=== PATIENT | male | born 1955 | race Two or more races ===

== ENCOUNTER 2021-04-03 10:19 | Emergency (ER) | payer MEDICARE, SELFPAY ==
--- NOTE | ~2021-04-03 | XR_ITS ---
EXAMINATION: XR CHEST CLINICAL INFORMATION: Covid infection. Cough. COMPARISON: Previous chest ray February 2018 TECHNIQUE: Frontal view of the chest was obtained. FINDINGS: The cardiac and mediastinal contours are normal. There is question of an infiltrate at the left lung base. The lungs are otherwise clear. There is no pleural effusion or pneumothorax. There are degenerative changes of the spine. XR/XR chest 1V IMPRESSION: Question left base infiltrate.
[2021-04-03 10:28] VITALS: BP 101/70; PULSE 104; RESP 16; TEMP 36.9; O2SAT 96; BMI 26.6
[2021-04-03] MEDS: 0.9 % Sodium Chloride 1,000 ML 999 ML IV ×2 (12:48→12:49)
[2021-04-03] MEDS: methylPREDNISolone Sod Succ 125 MG/2 ML VIAL IVPUSH (12:49)
--- NOTE | 2021-04-03 12:49 | ED_ITS ---
HPI - URI/Sore Throat General Chief Complaint: Upper Respiratory Symptoms Stated Complaint: POS COVID MONDAY CHEST PAIN DIFF BREATHING Time Seen by Provider: 04/03/21 11:24 Source: patient and family (daughter) Mode of arrival: ambulatory Limitations: language barrier History of Present Illness HPI Narrative: 65-year-old male with a past history of asthma and alcoholism prevents for worsening cough and headache. Symptoms are much worse at night. diagnosed COVID positive 5 days ago. Patient had 2 doses of Pfizer vaccine, his last dose was in September. Nursing notes as patient had chest pain, patient denies chest pain to me. Denies shortness of breath. States he has had fevers at home. No headache now. States he can eat and drink. Patient states he has been using his albuterol inhaler 10 times a day. His cough is mostly dry. Called daughter at home, daughter is a nurse. Daughter states patient's t emperature has been 104F temporal Patient's systolic blood pressure was less than 100 last night. His doctor prescribed Tessalon Perles but he has not started them. Patient is not drinking very much fluid. Daughter states she made him child Pedialyte to get his systolic blood pressure above 100 last night. Daughter states last night patient's oxygen saturation dropped to 87% for 4 hours. States at home it has only been up to 91%. Daughter states they have 4 people in the house and they all have symptoms, and two have tested positive for COVID. MD elicited complaint: fever and cough (headache) Pertinent past history: asthma Onset (ago): day(s) (5) Consistency: constant Severity: severe Able to tolerate fluids by mouth: Yes Exacerbating factors: other (coughing) Relieving factors: other (albuterol) Context: sick contacts Associated symptoms: fever, headache and cough Treatments prior to arrival: cold medicine Related Data Home Medications Medication Instructions Recorded Confirmed albuterol sulfate 90 mcg/actuation 2 puff INHALATION Q6H PRN 07/07/20 07/07/20 aerosol inhaler Previous Rx's Medication Instructions Recorded fluticasone propionate 44 2 puff INHALATION BID 30 Days 07/07/20 mcg/actuation HFA aerosol inhaler #10.6 g (Flovent HFA) benzonatate 100 mg capsule 100 mg PO TID PRN 7 Days #21 cap 03/31/21 albuterol sulfate 90 mcg/actuation 2 puff INHALATION Q4-6H PRN #6.7 g 04/03/21 aerosol inhaler amoxicillin 875 mg-potassium 1 tab PO BID 10 Days #20 tab 04/03/21 clavulanate 125 mg tablet (Augmentin) azithromycin 250 mg tablet See Rx Instructions .ROUTE 04/03/21 .COMPLEX #6 tab prednisone 20 mg tablet 60 mg PO DAILY 5 Days #15 tab 04/03/21 Allergies Allergy/AdvReac Type Severity Reaction Status Date / Time No Known Allergies Allergy Verified 08/25/20 10:11 Review of Systems Constitutional: Constitutional: Denies chills, Reports fever(s), Reports headache(s), Reports malaise and Denies weakness Eyes: Eyes: Denies blurry vision, Denies change in vision and Denies diplopia ENT: Denies dizziness, Denies otalgia, Reports headache(s), Denies post nasal drip, Denies sinus pain and Denies sore throat Cardiovascular: Cardiovascular: Denies chest pain, Denies chest pain at rest, Denies chest pain with activity, Denies syncope, Denies palpitations and Denies dyspnea Respiratory: Respiratory: Denies chest congestion, Reports cough, Denies pain on inspiration, Denies dyspnea and Reports wheezing Gastrointestinal: Gastrointestinal: Denies abdominal pain, Denies hematochezia, Denies constipation, Denies diarrhea, Denies nausea and Denies vomiting Genitourinary: Genitourinary: Reports no additional male genitourinary complaints Musculoskeletal: Musculoskeletal: Reports no additional musculoskeletal complaints Integumentary/Breasts: Skin/Breast: Denies erythema and Denies rash Neurologic: Denies Abnormal speech present, Denies confusion, Denies dizziness, Denies syncope, Reports headache(s), Denies Sensory deficit (Neuro) and Denies weakness Psychiatric: Psychiatric: Denies anxiety, Denies confusion and Denies depression Endocrine: Endocrine: Denies palpitations Allergic/Immunologic: Allergic/Immunologic: Reports wheezing PMFSH Past Medical History Medical History Asthma History of alcoholism Surgical History History of removal of cyst Family History Family History Father Alcoholism Mother No problems noted. Maternal Uncle Stroke Diabetes Hypertension Sister No problems noted. Brother Liver disease Son Murder Social History Social History Advance Directives: Yes Advance Directives Information Provided: Yes Advance Directives on File: No Physical Exam Vital Signs: Vital Signs: Last Vital Signs Temp 99.9 F 04/03/21 14:40 Pulse 90 04/03/21 14:40 Resp 14 04/03/21 14:40 BP 123/84 04/03/21 14:40 Pulse Ox 95 04/03/21 14:40 Body Mass Index 26.6 Const: General: No confusion Nutritional Appearance: well nourished Orientation/consciousness: patient oriented x3 and No confusion Limitations: language barrier (Armenian speker) HENMT: Head: Yes normal to inspection, Yes normocephalic and Yes atraumatic Ears: hearing grossly normal bilaterally, external ears normal, TM's normal bilaterally and EAC's normal General nose exam: Normal external nose present Face and sinus: Yes normal facial exam and Yes sinuses nontender Mouth: Normal oral and palatal mucosa present Throat: Yes posterior oropharynx normal Eyes: Conjunctivae: conjunctivae normal Pupils: Equal, round and reactive pupils present EOM: EOMs intact bilaterally Neck: Neck: Yes full ROM, Yes no lymphadenopathy, Yes no meningeal signs and Yes supple Resp: Effort & Inspection: normal respiratory effort and able to speak in complete sentences Auscultation: no crackles, no rales, rhonchi right lower and no wheezes Cardio: Rate: regular rate Rhythm: regular rhythm Heart sounds: S1 normal heart sound present and S2 normal heart sound present GI: Inspection: Yes normal to inspection Palpation (GI): Soft to palpation, nontender, no guarding and not rigid Percussion: Yes normal to percussion Auscultation: normal bowel sounds Skin: General skin exam: no rashes or lesions noted Neuro: General: patient oriented x3, gait normal, tone normal, no meningeal signs, no focal motor deficits, CN's II-XI intact bilaterally and No confusion Cranial nerves: Yes CN's II-XII intact bilaterally, Yes Facial sensation intact/muscles of mastication intact, Yes Equal, round and reactive pupils present, Yes Normal accommodation reflex present, Yes Bilaterally intact EOM present, Yes Nystagmus not present, Yes Normal facial strength present, Yes Ability to bilaterally rotate head present and Yes Ability to bilaterally elevate shoulders present Cognition (Neuro): normal cognition Speech: No Abnormal speech present Gait exam (Neuro): Normal gait present Motor exam (neuro): 5/5 motor strength present throughout Sensory Exam: No Sensory deficit (Neuro) Deep tendon reflexes (DTR's): Right brachioradialis reflex intensity grade: 1+, Left brachioradialis reflex intensity grade: 1+, Right patellar reflex intensity grade: 1+ and Left patellar reflex intensity grade: 1+ Coordination: [id number] test normal Pupils: Normal pupillary reactivity/response: bilateral Extrem: General: Yes normal to inspection and Yes full ROM Psych: Appearance: grossly normal Affect: normal affect Attitude: cooperative Thought process: Normal thought process present Course Course Course Narrative: 65-year-old male with a history of asthma presents for worsening cough, fever, and headaches at night. Patient is COVID positive despite being vaccinated. Spoke with daughter who is a nurse, who states patient has had temperatures up to 104, and a low blood pressure at home. States patient was only having an oxygen saturation of 87% last night for number of hours. She is concerned he is getting worse, and states he is afraid of hospitals and did not want to come in. On exam, patient is afebrile, mildly tachycardic with a heart rate of 104, blood pressure 101/70. Satting 96% on room air. Lung exam reveals mild rhonchi in the lower lobes. Getting chest x-ray, giving DuoNeb, giving Solu-Medrol, giving normal saline, getting labs, lactate, blood culture due to daughter's report. CBC and CMP are within normal limits, lactate 1.1. Will re-evaluate after nebulizer and Solu-Medrol Reevaluation(s) Reevaluation #1: Chest x-ray shows possible left base infiltrate. Will ambulate with pulse ox. Patient's oxygen saturation dropped to 94% while ambulating, he did not become tachypneic nor tachycardic. He is feeling better after his breathing treatment. Will send home on Augmentin and azithromycin, prednisone, albuterol inhaler. Called patient's daughter to update her. MDM - URI/Sore Throat Lab Data Result diagrams: 04/03/21 12:43 09/04/21 12:43 Labs: Lab Results 04/03/21 04/03/21 04/03/21 Range/Units 12:43 12:43 12:43 WBC 6.6 (4.8-10.8) X10*3/uL RBC 4.38 L (4.60-5.80) X10*6/uL Hgb 13.9 L (14.0-18.0) g/dl Hct 40.9 L (42-52) % MCV 93.4 (80-98) fL MCH 31.7 (27.0-33.0) pg MCHC 34.0 (31.0-36.0) g/dl RDW 13.2 (11.0-16.0) % Plt Count 192 (160-400) X10*3/uL MPV 9.2 L (9.4-12.4) fL Immature Gran % (Auto) 0.2 (0.0-0.4) % Neut % (Auto) 71.0 (45-73) % Lymph % (Auto) 23.8 (20-40) % [place] % (Auto) 4.8 (2-11) % Eos % (Auto) 0.2 (0-4) % Baso % (Auto) 0.0 (0-2) % Lymph # (Auto) 1.6 (1.2-4.9) X10*3/uL [place] # (Auto) 0.3 (0.1-1.2) X10*3/uL Eos # (Auto) 0.0 (0.0-0.4) X10*3/uL Baso # (Auto) 0.0 (0.0-0.2) X10*3/uL Abs Immat Gran (auto) 0.01 (0.00-0.03) X10*3/uL Absolute Neuts (auto) 4.7 (2.0-8.3) X10*3/uL Absolute Nucleated RBC 0.000 (0.0-0.012) X10*3/uL Nucleated RBC % (auto) 0.0 (0.0-0.2) /100WBC Sodium 139 (135-145) mmol/L Potassium 4.2 (3.3-5.1) mmol/L Chloride 101 (96-108) mmol/L Carbon Dioxide 29 (22-29) mmol/L Anion Gap 13 (12-20) BUN 7 L (9-16) mg/dL Creatinine 0.75 (0.5-1.4) mg/dL Estim Creat Clear Calc 83.1 Estimated GFR > 60 Random Glucose 95 (60-115) mg/dL Lactic Acid 1.1 (0.5-2.0) mmol/L Calcium 8.5 (8.4-10.2) mg/dL Total Bilirubin 0.4 (0.0-1.0) mg/dL AST 37 (5-37) U/L ALT 29 (0-40) U/L Alkaline Phosphatase 97 (39-117) U/L Total Protein 6.3 L (6.5-8.0) g/dL Albumin 3.8 (3.5-5.0) g/dL Discharge Plan Discharge Clinical Impression: Pneumonia Qualifiers: Pneumonia type: due to unspecified organism Laterality: left Lung location: lower lobe of lung Qualified Code(s): J18.9 - Pneumonia, unspecified organism Patient Disposition: Home, Self-Care Instructions: Bacterial Pneumonia (ED) Additional Instructions: Please start your antibiotics today. Please start your prednisone tomorrow. Please use your albuterol inhaler, 2 puffs every 4 hours while you are awake. Please have your daughter monitor your oxygen saturation, and if it gets low again or you have worsening shortness of breath, please return to the emergency room. Empiece a tomas antibi?ticos hoy. Empiece a tomas prednisona ma?stephania. Utilice lambert inhalador de albuterol, 2 inhalaciones cada 4 horas mientras est? despierto. P?dinora a lambert hija que controle lambert saturaci?n de ox?timothy y, si vuelve a bajar o si la falta de aire empeora, regrese a la gloria de emergencias. Prescriptions: New prednisone 20 mg tablet 60 mg PO DAILY 5 Days Qty: 15 RF: 0 amoxicillin-pot clavulanate [Augmentin] 875-125 mg tablet 1 tab PO BID 10 Days Qty: 20 RF: 0 azithromycin 250 mg tablet See Rx Instructions .ROUTE .COMPLEX Qty: 6 RF: 0 albuterol sulfate 90 mcg/actuation HFA aerosol inhaler 2 puff inhalation Q4-6H PRN (Reason: shortness of breath or wheezing) Qty: 6.7 RF: 1 No Action benzonatate 100 mg capsule 100 mg PO TID PRN (Reason: cough) 7 Days Qty: 21 RF: 0 albuterol sulfate 90 mcg/actuation HFA aerosol inhaler 2 puff inhalation Q6H PRNRF: 0 Flovent HFA 44 mcg/actuation HFA aerosol inhaler 2 puff inhalation BID 30 Days Qty: 10.6 RF: 11 Print Language: Armenian
[2021-04-03 12:50] LABS: Eosinophils Percent Auto 0.2 % (0-4); Hematocrit 40.9 % (42-52); Hemoglobin 13.9 g/dl (14.0-18.0); Imm Gran Abs Auto 0.01 X10*3/uL (0.00-0.03); Imm Gran Pct Auto 0.2 % (0.0-0.4); Lymphocytes Absolute Auto 1.6 X10*3/uL (1.2-4.9); Lymphocytes Percent Auto 23.8 % (20-40); MANUAL DIFF FLAG NO; Mean Corpuscular Hemoglobin 31.7 pg (27.0-33.0); Mean Corpuscular Volume 93.4 fL (80-98); Mean Platelet Volume 9.2 fL (9.4-12.4); Monocytes Absolute Auto 0.3 X10*3/uL (0.1-1.2); Monocytes Percent Auto 4.8 % (2-11); Neutrophils Absolute Auto 4.7 X10*3/uL (2.0-8.3); Platelet Count 192 X10*3/uL (160-400); Red Blood Count 4.38 X10*6/uL (4.60-5.80); Red Cell Distribution Width 13.2 % (11.0-16.0); White Blood Count 6.6 X10*3/uL (4.8-10.8)
[2021-04-03 13:00] LABS: Lactic Acid 1.1 mmol/L (0.5-2.0)
[2021-04-03 13:06] LABS: Alanine Aminotransferase 29 U/L (0-40); Albumin Level 3.8 g/dL (3.5-5.0); Alkaline Phosphatase 97 U/L (39-117); Anion Gap 13 (12-20); Aspartate Amino Transferase 37 U/L (5-37); Bilirubin Total 0.4 mg/dL (0.0-1.0); Blood Urea Nitrogen 7 mg/dL (9-16); Calcium 8.5 mg/dL (8.4-10.2); Carbon Dioxide 29 mmol/L (22-29); Chloride 101 mmol/L (96-108); Creatinine Clr Calc Pharmacy 83.1; Estimated Glomerular Filt Rate > 60; Glucose Random 95 mg/dL (60-115); Potassium 4.2 mmol/L (3.3-5.1); Sodium 139 mmol/L (135-145); Total Protein 6.3 g/dL (6.5-8.0)
[2021-04-03] MEDS: Albuterol/Iprat 2.5/0.5MG 3 ML AMPUL.NEB INHALE (13:08)
[2021-04-03 13:09] VITALS: PULSE 83; O2SAT 99
[2021-04-03 14:40] VITALS: BP 123/84; PULSE 90; RESP 14; TEMP 37.7; O2SAT 95
== END 2021-04-03 16:55 | disposition home or self-care (01) ==
PROVIDERS: Physician Assistant; Emergency Provider Student in an Organized Health Care Education/Training Program; PCP Internal Medicine
DX: J18.9 Pneumonia, unspecified organism (principal); R50.9 Fever, unspecified; Z86.16 Personal history of COVID-19
CPT/HCPCS: 36415; 71045; 80053; 83605; 85025; 87040; 94640; 96361; 96374; 99283; 99284; J2930

== ENCOUNTER 2021-06-29 16:44 | Emergency (ER) | payer MEDICARE, SELFPAY ==
--- NOTE | ~2021-06-29 | XR_ITS ---
EXAMINATION: XR KNEE, RIGHT CLINICAL INFORMATION: Knee pain and swelling COMPARISON: 05/10/2013 TECHNIQUE: Two views of the right knee. FINDINGS: Bones and soft tissues are normal aside from some mild narrowing of the medial compartment unchanged from 2013.. No fracture or joint effusion. Alignment is anatomic. No abnormal soft tissue calcification. XR/XR knee RT 2V IMPRESSION: Mild narrowing of the medial compartment.
[2021-06-29 19:36] VITALS: BP 159/86; PULSE 70; RESP 18; TEMP 36.2; O2SAT 98; BMI 22.9
[2021-06-29 20:59] VITALS: BP 139/91; PULSE 72; RESP 16; TEMP 36.8; O2SAT 99
--- NOTE | 2021-06-29 21:24 | ED.LOWEXIN ---
HPI - Extremity Injury (Lower) General Chief Complaint: Extremity Injury, Lower Stated Complaint: leg pain Time Seen by Provider: 06/29/21 21:23 Source: patient, family (Daughter) and margarine maker Mode of arrival: ambulatory History of Present Illness HPI Narrative: 66-year-old male who presents with complaints of posterior right knee pain not associated with swelling or redness and denies any associated fevers with chills or traumatic event. Patient states that he does perform his work on his knee frequently and denies any recent travel, use of blood thinners, shortness of breath. In addition, patient denies any swelling distal the site of pain as well as denying any numbness/tingling/weakness. The pain is most prominent when he stands and does not radiate. Related Data Home Medications Medication Instructions Recorded Confirmed albuterol sulfate 90 mcg/actuation 2 puff INHALATION Q6H PRN 07/07/20 07/07/20 aerosol inhaler Previous Rx's Medication Instructions Recorded fluticasone propionate 44 2 puff INHALATION BID 30 Days 07/07/20 mcg/actuation HFA aerosol inhaler #10.6 g (Flovent HFA) albuterol sulfate 90 mcg/actuation 2 puff INHALATION Q4-6H PRN #6.7 g 04/03/21 aerosol inhaler amoxicillin 875 mg-potassium 1 tab PO BID 10 Days #20 tab 04/03/21 clavulanate 125 mg tablet (Augmentin) azithromycin 250 mg tablet See Rx Instructions .ROUTE 04/03/21 .COMPLEX #6 tab prednisone 20 mg tablet 60 mg PO DAILY 5 Days #15 tab 04/03/21 benzonatate 100 mg capsule 100 mg PO TID PRN 7 Days #21 cap 05/04/21 Allergies Allergy/AdvReac Type Severity Reaction Status Date / Time No Known Allergies Allergy Verified 08/25/20 10:11 Review of Systems Review of Systems: Pertinent positives and negatives as stated in the HPI and 10 point review of systems is otherwise negative. [facility] Past Medical History Source: nursing notes reviewed Medical History Asthma History of alcoholism Surgical History History of removal of cyst Family History Family History Father Alcoholism Mother No problems noted. Maternal Uncle Stroke Diabetes Hypertension Sister No problems noted. Brother Liver disease Son Murder Social History Social History Advance Directives: No Advance Directives Information Provided: Yes Physical Exam Vital Signs: Vital Signs: Last Vital Signs Temp 98.2 F 06/29/21 20:59 Pulse 72 06/29/21 20:59 Resp 16 06/29/21 20:59 BP 139/91 H 06/29/21 20:59 Pulse Ox 99 06/29/21 20:59 Body Mass Index 22.9 VITAL SIGNS: Reviewed. GENERAL: Well developed, well nourished, in no acute distress. HEAD: Normocephalic/atraumatic EYES: PERRLA, EOMI OROPHARYNX: no oral lesions noted, posterior pharynx clear NECK: Supple, no adenopathy LUNGS: Normal breath sounds. No adventitious sounds or accessory muscle use. SpO2<99> CARDIOVASCULAR: Regular rate and rhythm without noted murmurs ABDOMEN: Soft, non-tender, non-distended with bowel sounds. RLE: No palpable masses that posterior knee, good lower extremity erythema/induration/edema, skin is pink and dry and no noted that in at the knee erythema. SKIN: Inspection of the skin reveals no rashes NEUROLOGIC: Alert and oriented x 4. Strength and sensation to light touch were grossly intact x 4. Course Course Course Narrative: 66-year-old male with history and clinical presentation most consistent with Sánchez cyst and will be provided with combination analgesics but will follow up knee x-ray as well as D-dimer. 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 On re-evaluation after patient provided with patient analgesics he reports there is some improvement is pain profile and he will be discharged with recommendations for similar regimen and instructed to follow-up with his primary care provider. MDM - Extremity Injury (Lower) Lab Data Labs: Lab Results 06/29/21 Range/Units 21:54 D-Dimer High Sensitivty 173 NG/ML Discharge Plan Discharge Clinical Impression: Posterior right knee pain Patient Disposition: Home, Self-Care Instructions: Knee Pain (ED), Arthralgia (ED) Prescriptions: No Action benzonatate 100 mg capsule 100 mg PO TID PRN (Reason: cough) 7 Days Qty: 21 RF: 0 prednisone 20 mg tablet 60 mg PO DAILY 5 Days Qty: 15 RF: 0 amoxicillin-pot clavulanate [Augmentin] 875-125 mg tablet 1 tab PO BID 10 Days Qty: 20 RF: 0 azithromycin 250 mg tablet See Rx Instructions .ROUTE .COMPLEX Qty: 6 RF: 0 albuterol sulfate 90 mcg/actuation HFA aerosol inhaler 2 puff inhalation Q4-6H PRN (Reason: shortness of breath or wheezing) Qty: 6.7 RF: 1 albuterol sulfate 90 mcg/actuation HFA aerosol inhaler 2 puff inhalation Q6H PRNRF: 0 Flovent HFA 44 mcg/actuation HFA aerosol inhaler 2 puff inhalation BID 30 Days Qty: 10.6 RF: 11 Referrals: Shirlene Baeur MD [Primary Care Provider] - 2 days (Suspect right Sánchez cyst, workup here negative for acute joint issues no evidence of infection and D-dimer negative.) Print Language: Cambodian
[2021-06-29 22:00] VITALS: BP 120/68; PULSE 74; RESP 16; TEMP 37.5; O2SAT 99
[2021-06-29 22:05] LABS: D Dimer High Sensitivity 173 NG/ML
[2021-06-29] MEDS: Ketorolac Tromethamine 15 MG/ML VIAL IM (23:10)
[2021-06-29] MEDS: Acetaminophen 325 MG TABLET 975 MG PO (23:11)
== END 2021-06-29 23:27 | disposition home or self-care (01) ==
PROVIDERS: Emergency Provider Student in an Organized Health Care Education/Training Program; PCP Internal Medicine
DX: M25.561 Pain in right knee (principal)
CPT/HCPCS: 36415; 73560; 85379; 96372; 99284; J1885

== ENCOUNTER 2021-08-26 09:23 | Outpatient (REF) | payer MEDICARE, MEDICAID, SELFPAY ==
[2021-08-26 09:59] LABS: MANUAL DIFF FLAG NO
[2021-08-26 10:25] LABS: Basophils Percent Auto 0.5 % (0-2); Eosinophils Absolute Auto 0.1 X10*3/uL (0.0-0.4); Eosinophils Percent Auto 2.2 % (0-4); Hemoglobin 14.9 g/dl (14.0-18.0); Imm Gran Abs Auto 0.01 X10*3/uL (0.00-0.03); Imm Gran Pct Auto 0.2 % (0.0-0.4); Lymphocytes Absolute Auto 2.3 X10*3/uL (1.2-4.9); Lymphocytes Percent Auto 35.7 % (20-40); Mean Corpuscular HGB Conc 33.9 g/dl (31.0-36.0); Mean Corpuscular Hemoglobin 32.1 pg (27.0-33.0); Mean Corpuscular Volume 94.8 fL (80.0-98.0); Mean Platelet Volume 9.8 fL (9.4-12.4); Monocytes Absolute Auto 0.5 X10*3/uL (0.1-1.2); Neutrophils Absolute Auto 3.5 x10*3/uL (2.0-8.3); Neutrophils Percent Auto 53.4 % (45-73); Platelet Count 203 X10*3/uL (160-400); Red Blood Count 4.64 X10*6/uL (4.60-5.80); Red Cell Distribution Width 12.9 % (11.0-16.0); White Blood Count 6.5 X10*3/uL (4.8-10.8)
[2021-08-26 10:32] LABS: Estimated Average Glucose 111 mg/dL; Hemoglobin A1c % 5.5 %
[2021-08-26 10:57] LABS: Alanine Aminotransferase 19 U/L (0-40); Albumin Level 4.2 g/dL (3.5-5.0); Alkaline Phosphatase 112 U/L (39-117); Anion Gap 10 (12-20); Aspartate Amino Transferase 23 U/L (5-37); Bilirubin Total 0.4 mg/dL (0.0-1.0); Blood Urea Nitrogen 15 mg/dL (9-16); Calcium 9.4 mg/dL (8.4-10.2); Carbon Dioxide 28 mmol/L (22-29); Chloride 104 mmol/L (96-108); Cholesterol 156 mg/dL; Estimated Glomerular Filt Rate > 60; Glucose Fasting 96 mg/dL (60-99); HDL Cholesterol 30 mg/dL; LDL Cholesterol Calculated 111 mg/dl; Potassium 4.5 mmol/L (3.3-5.1); Sodium 137 mmol/L (135-145); Total Protein 6.9 g/dL (6.5-8.0); Triglycerides 76 mg/dL
[2021-08-26 11:17] LABS: Prostate Specific Antigen Scr 0.18 ng/mL (<0.05-4.0); TSH reflex Free T4 1.31 uIU/mL (0.32-4.0)
[2021-08-26 11:38] LABS: Vitamin B12 < 146 pg/mL (200-900)
[2021-08-31 14:12] LABS: Vitamin D 25-OH, D2 <4 ng/mL; Vitamin D 25-OH, D3 13 ng/mL; Vitamin D 25-OH, Total 13 ng/mL (30-100)
== END 2021-08-26 09:24 | disposition home or self-care (01) ==
LOC: HO.LAB 09:23
PROVIDERS: Absent Provider Internal Medicine; PCP Internal Medicine; Visit Provider Nurse Practitioner Acute Care
DX: Z12.5 Encounter for screening for malignant neoplasm of prostate (principal); F10.21 Alcohol dependence, in remission
CPT/HCPCS: 36415; 80053; 80061; 82306; 82607; 82746; 83036; 84153; 84443; 85025

== ENCOUNTER 2021-09-01 14:44 | Outpatient (REF) | payer MEDICARE, MEDICAID, SELFPAY ==
--- NOTE | ~2021-09-01 | XR_ITS ---
EXAMINATION: XR CHEST CLINICAL INFORMATION: Shortness of breath COMPARISON: None TECHNIQUE: 2 views of the chest were obtained. FINDINGS: No significant abnormality is noted involving the heart, lungs, mediastinum, bony thorax or soft tissues. XR/XR chest 2V IMPRESSION: Unremarkable chest examination.
[2021-09-07 12:22] LABS: Parietal Cell Antibody <=20.0 Unit (<=20.0)
[2021-09-07 22:57] LABS: Intrinsic Factor Antibodies Negative (Negative)
== END 2021-09-01 14:45 | disposition home or self-care (01) ==
LOC: HO.LAB 14:44
PROVIDERS: PCP Internal Medicine; Visit Provider Internal Medicine
DX: R06.02 Shortness of breath (principal); E53.8 Deficiency of other specified B group vitamins
CPT/HCPCS: 36415; 71046; 83516; 86340

== ENCOUNTER → 2021-10-15 13:31 | Outpatient (BNVA) | payer MEDICARE, MEDICAID, SELFPAY | PROVIDERS: PCP Internal Medicine; Visit Provider Nurse Practitioner Family | DX: M17.11 Unilateral primary osteoarthritis, right knee (principal); L25.9 Unspecified contact dermatitis, unspecified cause | CPT/HCPCS: 99202 ==

== ENCOUNTER 2021-10-25 12:11 | Outpatient (REF) | payer MEDICARE, MEDICAID, SELFPAY ==
--- NOTE | ~2021-10-25 | XR_ITS ---
EXAMINATION: XR KNEE AP STANDING CLINICAL INFORMATION: Pain COMPARISON: X-ray 06/29/2021 TECHNIQUE: AP bilateral standing view of the knees was obtained. Right knee sunrise view FINDINGS: Right knee: Mild medial compartment arthritis. No fracture or dislocation on the provided views. Left knee: Mild medial compartment arthritis. XR/XR knee standing BI IMPRESSION: Mild medial compartment arthritis bilaterally.
--- NOTE | ~2021-10-25 | XR_ITS ---
EXAMINATION: XR KNEE AP STANDING CLINICAL INFORMATION: Pain COMPARISON: X-ray 06/29/2021 TECHNIQUE: AP bilateral standing view of the knees was obtained. Right knee sunrise view FINDINGS: Right knee: Mild medial compartment arthritis. No fracture or dislocation on the provided views. Left knee: Mild medial compartment arthritis. XR/XR knee RT 1V IMPRESSION: Mild medial compartment arthritis bilaterally.
== END 2021-10-25 12:12 | disposition home or self-care (01) ==
LOC: HO.HOSX 12:11
PROVIDERS: PCP Internal Medicine; Visit Provider Physician Assistant
DX: M17.11 Unilateral primary osteoarthritis, right knee (principal); Z86.16 Personal history of COVID-19
CPT/HCPCS: 73560; 73565; 99212

== ENCOUNTER 2022-01-04 09:35 | Outpatient (REF) | payer MEDICARE, MEDICAID, SELFPAY ==
[2022-01-04 09:50] LABS: MANUAL DIFF FLAG NO
[2022-01-04 10:15] LABS: Basophils Percent Auto 0.4 % (0-2); Eosinophils Absolute Auto 0.1 X10*3/uL (0.0-0.4); Eosinophils Percent Auto 1.6 % (0-4); Hematocrit 43.3 % (42.0-52.0); Hemoglobin 14.8 g/dl (14.0-18.0); Imm Gran Abs Auto 0.02 X10*3/uL (0.00-0.03); Imm Gran Pct Auto 0.3 % (0.0-0.4); Lymphocytes Absolute Auto 2.6 X10*3/uL (1.2-4.9); Mean Corpuscular HGB Conc 34.2 g/dl (31.0-36.0); Mean Corpuscular Hemoglobin 31.2 pg (27.0-33.0); Mean Corpuscular Volume 91.2 fL (80.0-98.0); Mean Platelet Volume 9.5 fL (9.4-12.4); Monocytes Absolute Auto 0.6 X10*3/uL (0.1-1.2); Monocytes Percent Auto 8.1 % (2-11); Neutrophils Absolute Auto 3.5 x10*3/uL (2.0-8.3); Neutrophils Percent Auto 51.6 % (45-73); Platelet Count 223 X10*3/uL (160-400); Red Blood Count 4.75 X10*6/uL (4.60-5.80); Red Cell Distribution Width 12.7 % (11.0-16.0); White Blood Count 6.8 X10*3/uL (4.8-10.8)
[2022-01-04 11:21] LABS: Folate 10.6 ng/mL (> or = 4.0); Vitamin B12 < 146 pg/mL (200-900)
[2022-01-09 13:36] LABS: Vitamin D 25-OH, D2 <4 ng/mL; Vitamin D 25-OH, D3 21 ng/mL; Vitamin D 25-OH, Total 21 ng/mL (30-100)
== END 2022-01-04 09:36 | disposition home or self-care (01) ==
LOC: HO.LAB 09:35
PROVIDERS: PCP Internal Medicine; Visit Provider Internal Medicine
DX: E53.8 Deficiency of other specified B group vitamins (principal); E55.9 Vitamin D deficiency, unspecified; D64.9 Anemia, unspecified
CPT/HCPCS: 36415; 82306; 82607; 82746; 85025

== ENCOUNTER 2022-07-05 11:21 | Outpatient (REF) | payer MEDICARE, MEDICAID, SELFPAY ==
--- NOTE | 2022-07-05 11:31 | ECG_ITS ---
Test Reason : R07.9 Chest pain Blood Pressure : / mmHG Vent. Rate : 059 BPM Atrial Rate : 059 BPM P-R Int : 192 ms QRS Dur : 076 ms QT Int : 396 ms P-R-T Axes : 011 071 048 degrees QTc Int : 392 ms Sinus bradycardia Nonspecific T wave abnormality Abnormal ECG When compared with ECG of 17-JAN-2018 16:22, No significant change was found Referred By: Shirlene Gonzales Electronically Signed By:PEG SILVA MD
[2022-07-05 11:37] LABS: MANUAL DIFF FLAG NO
[2022-07-05 11:56] LABS: Basophils Percent Auto 0.3 % (0-2); Eosinophils Absolute Auto 0.1 X10*3/uL (0.0-0.4); Eosinophils Percent Auto 2.2 % (0-4); Hematocrit 43.7 % (42.0-52.0); Hemoglobin 14.8 g/dl (14.0-18.0); Imm Gran Abs Auto 0.02 X10*3/uL (0.00-0.03); Imm Gran Pct Auto 0.3 % (0.0-0.4); Lymphocytes Absolute Auto 2.4 X10*3/uL (1.2-4.9); Lymphocytes Percent Auto 38.1 % (20-40); Mean Corpuscular HGB Conc 33.9 g/dl (31.0-36.0); Mean Corpuscular Volume 91.4 fL (80.0-98.0); Mean Platelet Volume 9.8 fL (9.4-12.4); Monocytes Absolute Auto 0.5 X10*3/uL (0.1-1.2); Monocytes Percent Auto 8.1 % (2-11); Neutrophils Absolute Auto 3.2 x10*3/uL (2.0-8.3); Platelet Count 226 X10*3/uL (160-400); Red Blood Count 4.78 X10*6/uL (4.60-5.80); Red Cell Distribution Width 12.9 % (11.0-16.0); White Blood Count 6.3 X10*3/uL (4.8-10.8)
[2022-07-05 13:54] LABS: Alanine Aminotransferase 33 U/L (0-40); Albumin Level 4.3 g/dL (3.5-5.0); Alkaline Phosphatase 116 U/L (39-117); Anion Gap 11 (12-20); Aspartate Amino Transferase 30 U/L (5-37); Bilirubin Total 0.4 mg/dL (0.0-1.0); Blood Urea Nitrogen 14 mg/dL (9-16); Calcium 9.2 mg/dL (8.4-10.2); Carbon Dioxide 29 mmol/L (22-29); Chloride 104 mmol/L (96-108); Estimated Glomerular Filt Rate > 60; Glucose Random 84 mg/dL (60-115); Potassium 4.8 mmol/L (3.3-5.1); Sodium 139 mmol/L (135-145); Total Protein 6.9 g/dL (6.5-8.0)
[2022-07-05 14:25] LABS: Folate 6.7 ng/mL (> or = 4.0); Vitamin B12 317 pg/mL (200-900)
== END 2022-07-05 11:22 | disposition home or self-care (01) ==
LOC: HO.LAB 11:21
PROVIDERS: PCP Internal Medicine; Visit Provider Internal Medicine
DX: R07.9 Chest pain, unspecified (principal); D64.9 Anemia, unspecified; E53.8 Deficiency of other specified B group vitamins; J45.909 Unspecified asthma, uncomplicated; E55.9 Vitamin D deficiency, unspecified
CPT/HCPCS: 36415; 80053; 82306; 82607; 82746; 85025; 93005

== ENCOUNTER 2022-11-12 10:39 | Emergency (ER) | payer MEDICARE, MEDICAID, SELFPAY ==
[2022-11-12 10:46] VITALS: BP 143/86; PULSE 71; RESP 18; TEMP 36.7; O2SAT 98; BMI 28.3
--- NOTE | 2022-11-12 11:31 | ED_ITS ---
HPI - General Adult General Chief complaint: General Medical Stated complaint: pain in neck and L shoulder Time Seen by Provider: 11/12/22 11:30 Source: patient Mode of arrival: ambulatory History of Present Illness HPI narrative: 67-year-old male with past medical history of asthma, insomnia, ETOH abuse, presenting to the ED complaining of acute on chronic left neck pain radiating to left shoulder x months. Denies known injury/trauma or fall. Reports pain worse with palpation and movement. Denies headache at present, lightheadedness/dizziness, CP/SOB, numbness/tingling. Takes Motrin without relief Onset (ago): month(s) Related Data Previous Rx's Medication Instructions Recorded acetaminophen 500 mg tablet 1,000 mg PO Q6H PRN fever or pain 08/24/21 #30 tabs albuterol sulfate 90 mcg/actuation 2 puff inhalation Q4-6H PRN 08/25/21 aerosol inhaler shortness of breath or wheezing #6.7 grams albuterol sulfate 2.5 mg/3 mL 2.5 mg (3 mL) inhalation QID PRN 09/01/21 (0.083 %) solution for nebulization shortness of breath or wheezing 30 days #75 mL ibuprofen 800 mg tablet 800 mg PO BID PRN pain #21 tabs 10/16/21 cyanocobalamin (vitamin B-12) 1,000 mcg PO DAILY 90 days #90 caps 01/05/22 1,000 mcg capsule trazodone 50 mg tablet 50 mg PO BEDTIME PRN sleep 90 days 01/05/22 #90 tabs pen needle, diabetic 31 gauge x #1 ea 01/08/22/ (1st Tier Unifine Pentips) folic acid 1 mg tablet 1 mg PO DAILY 90 days #90 tabs 07/05/22 nebulizers (AeroEclipse II #1 ea 07/05/22 Nebulizer) cholecalciferol (vitamin D3) 50 50 mcg PO DAILY 90 days #90 caps 09/18/22 mcg (2,000 unit) capsule acetaminophen 500 mg tablet 500 mg PO Q6H PRN fever or pain 11/12/22 (Tylenol Extra Strength) #14 tabs cyclobenzaprine 5 mg tablet 5 mg PO Q8H PRN pain (scale score 11/12/22 7-10) 5 days #14 tabs lidocaine 5 % topical patch 1 patch topical DAILY PRN pain #30 11/12/22 (Lidoderm) ea naproxen 500 mg tablet 500 mg PO BID PRN pain 10 days #20 11/12/22 tabs Allergies Allergy/AdvReac Type Severity Reaction Status Date / Time No Known Allergies Allergy Verified 07/05/22 10:58 Review of Systems Review of Systems: Constitutional: No Fever, No Chills ENT/Mouth: No Ear Pain, No Nasal Congestion, No sore throat, No Rhinorrhea, No Swallowing Difficulty Cardiovascular: No Chest Pain, No SOB Respiratory: No Cough, No Sputum Gastrointestinal: No Nausea, No Vomiting, No Diarrhea, No Constipation, No Abdominal pain Genitourinary: No Dysuria, No Urinary Frequency, No Hematuria, No Urinary Incontinence/retention, No Urgency, No Flank Pain Musculoskeletal: + joint pain, + Myalgias, No Joint Swelling Skin: No Skin Lesions, No rash Neuro: No Weakness, No Numbness, No Paresthesias, No headache Yes all other systems are reviewed and are negative Constitutional: Constitutional: Reports as per [facility] Past Medical History Attestation statement: The following information was validated with the patient. Medical History Asthma History of alcoholism Insomnia Physical exam Surgical History History of removal of cyst Family History Family History Father Alcoholism Substance use disorder Mother Hypertension Maternal Uncle Stroke Diabetes Hypertension Sister No problems noted. 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 Physical Exam ED Vital Signs: Vital Signs - 24 hr 11/12/22 10:46 Temperature 98.0 F Pulse Rate 71 Respiratory Rate 18 Blood Pressure 143/86 H Pulse Oximetry 98 Oxygen Delivery Method Room Air BMI result Body Mass Index 28.3 Const General: cooperative, healthy appearing and no acute distress Orientation/consciousness: patient oriented x3 Limitations: no limitations HENMT Head: Yes normal to inspection and Yes atraumatic Ears: hearing grossly normal bilaterally, TM normal on the left and mastoids normal General nose exam: Normal external nose present Face and sinus: Yes normal facial exam Mouth: Normal oral and palatal mucosa present Throat: Yes posterior oropharynx normal, Yes uvula midline and No peritonsillar mass Eyes General: appearance normal, both eyes and all related structures EOM: EOMs intact bilaterally Neck Other: No midline cervical spinous tenderness. Left-sided paraspinal and trapezius muscle tenderness to palpation Neck: Yes normal visual inspection, Yes no meningeal signs, Yes supple and No anterior neck swelling Resp Effort & Inspection: normal respiratory effort and no respiratory distress Auscultation: clear to auscultation bilaterally Cardio Rate: regular rate Heart sounds: S1 normal heart sound present and S2 normal heart sound present Peripheral pulses: radial pulses present Back/Spine/Pelvis Other: No midline thoracic/lumbar spinous tenderness/step-off or deformity Skin Rashes: no rashes Wounds: no wounds Neuro General: patient oriented x3, gait normal, tone normal, moves all extremities, no meningeal signs, no focal motor deficits and CN's II-XI intact bilaterally Gait exam (Neuro): Normal gait present Motor exam (neuro): 5/5 motor strength present throughout Extrem Other: Left shoulder nontender. Full range of motion intact. NV intact distally General: Yes normal to inspection Medications Administered Discontinued Medications Generic Name Dose Route Start Last Admin Trade Name Freq PRN Reason Stop Dose Admin Ketorolac Tromethamine 30 mg 11/12/22 11:49 11/12/22 11:56 Ketorolac Tromethamine 30 Mg/Ml Vial IM 11/12/22 11:50 30 mg ONCE ONE Administration Lidocaine 1 patch 11/12/22 11:49 11/12/22 11:56 Lidocaine 4 % Patch Adh..Patch TRANSDERMA 11/12/22 11:50 1 patch ONCE ONE Administration Protocol Medical Decision Making Medical Decision Making [facility] Narrative: 67-year-old male with past medical history of asthma, insomnia, ETOH abuse, presenting to the ED complaining of acute on chronic left neck pain radiating to left shoulder x months. On exam vital signs stable, NAD, nontoxic appearing, physical exam as above with reproducible paraspinal/MSK tenderness. No midline spinous tenderness or red flag symptoms. Concern for MSK pain/strain vs radiculopathy vs tendinitis. Low suspicion for fracture, cauda equina, ACS, meningitis/encephalitis, cervical dissection Plan: EKG, IM Toradol Please refer to course for remaining clinical decision making, interpretation of labs/imaging results, and discussions with consultants and/or family members. Differential Diagnosis Differential Diagnoses: The differential diagnosis associated with the presentation includes As above Admission/Observation Consideration of admission/observation: Escalation of care including admission/observation considered Lab Data MDM Lab Attestation statement: I reviewed the patient's lab results. Independent Interpretation I performed an independent interpretation of an: EKG (My interpretation EKG sinus rhythm with first-degree AV block. Rate of 60. QRS 80. QTC 360. No STEMI) Radiology Impression Discussion of test interpretation with radiology: I have reviewed the radiologist's reading. External Record Review External record reviewed: Inpatient record, Office record, Outpatient record, Prior outpatient labs, Prior outpatient radiology, Primary care record and Outside ED record Discharge Plan Discharge Clinical Impression: Neck pain on left side Patient Disposition: Home, Self-Care Instructions: Chronic Neck Pain (DC) Additional Instructions: Your pain is likely musculoskeletal Flexeril is a muscle relaxer, take at night as it makes you drowsy, do not drive, drink alcohol, or operate machinery while taking it Naproxen as an anti-inflammatory / pain medication, take with food Lidoderm patches are numbing patches, apply to painful area In addition take Tylenol at home If symptoms persist or worsen, pain becomes unbearable, you developed urinary retention or incontinence, or weakness return to the ED Es probable que lambert dolor sea musculoesquel?[place] Flexeril es un relajante muscular, t?parveen por la noche ya que te adormece, no conduzcas, bebas alcohol ni operes maquinaria mientras lo franklin. Naproxeno milton medicamento antiinflamatorio/analg?sico, t?chamberlain con alimentos Los parches de Lidoderm son parches anest?sicos, se aplican en el ?lesa dolorida Adem?s yessi Tylenol en casa Si los s?ntomas persisten o empeoran, el dolor se vuelve insoportable, desarroll? retenci?n urinaria o incontinencia, o debilidad, regrese al servicio de urgencias. Prescriptions: New acetaminophen [Tylenol Extra Strength] 500 mg tablet 500 mg PO Q6H PRN (Reason: fever or pain) Qty: 14 0RF lidocaine [Lidoderm] 5 % adhesive patch,medicated 1 patch topical DAILY MDD remove after 12 hours PRN (Reason: pain) Qty: 30 0RF Rx Instructions: leave on most painful area for up to 12 hrs naproxen 500 mg tablet 500 mg PO BID PRN (Reason: pain) 10 Days Qty: 20 0RF cyclobenzaprine 5 mg tablet 5 mg PO Q8H PRN (Reason: pain (scale score 7-10)) 5 Days Qty: 14 0RF No Action albuterol sulfate 90 mcg/actuation HFA aerosol inhaler 2 puff inhalation Q4-6H PRN (Reason: shortness of breath or wheezing) Qty: 6.7 1RF Rx Instructions: Two puffs every 4 hours while your awake for the next 3-4 days (DME) pen needle, diabetic [1st Tier Unifine Pentips] 31 gauge x 5/16 needle See Rx Instructions .Route Qty: 1 6RF Rx Instructions: As directed cholecalciferol (vitamin D3) 50 mcg (2,000 unit) capsule 50 mcg PO DAILY 90 Days Qty: 90 2RF cyanocobalamin (vitamin B-12) 1,000 mcg capsule 1,000 mcg PO DAILY 90 Days Qty: 90 3RF trazodone 50 mg tablet 50 mg PO BEDTIME PRN (Reason: sleep) 90 Days Qty: 90 1RF Hold Instructions: Dose Change albuterol sulfate 2.5 mg /3 mL (0.083 %) solution for nebulization 2.5 mg inhalation QID PRN (Reason: shortness of breath or wheezing) 30 Days Qty: 75 0RF acetaminophen 500 mg tablet 1,000 mg PO Q6H PRN (Reason: fever or pain) Qty: 30 0RF folic acid 1 mg tablet 1 mg PO DAILY 90 Days Qty: 90 1RF (DME) AeroEclipse II Nebulizer Misc See Rx Instructions .Route Qty: 1 0RF Rx Instructions: As directed ibuprofen 800 mg tablet 800 mg PO BID PRN (Reason: pain) Qty: 21 0RF Referrals: Shirlene Bauer MD [Primary Care Provider] - 5 days Print Language: Citizen Of [place]
--- NOTE | 2022-11-12 11:31 | ECG_ITS ---
Test Reason : lest shoulder pain Blood Pressure : / mmHG Vent. Rate : 060 BPM Atrial Rate : 060 BPM P-R Int : 218 ms QRS Dur : 080 ms QT Int : 368 ms P-R-T Axes : 033 059 064 degrees QTc Int : 368 ms Sinus rhythm with 1st degree A-V block Nonspecific T wave abnormality Abnormal ECG When compared with ECG of 05-JUL-2022 11:38, No significant change was found Referred By: Mi Maldonado Electronically Signed By:PEG SILVA MD
[2022-11-12] MEDS: Ketorolac Tromethamine 30 MG/ML VIAL IM (11:56)
[2022-11-12] MEDS: Lidocaine 4 % Patch ADH..PATCH 1 PATCH TRANSDERMA (11:56)
== END 2022-11-12 12:07 | disposition home or self-care (01) ==
PROVIDERS: Emergency Provider Emergency Medicine; PCP Internal Medicine
DX: M54.2 Cervicalgia (principal)
CPT/HCPCS: 93005; 96372; 99284; J1885

== ENCOUNTER 2023-01-14 09:39 | Outpatient (REF) | payer MEDICARE, MEDICAID, SELFPAY ==
[2023-01-14 10:08] LABS: MANUAL DIFF FLAG NO
[2023-01-14 10:51] LABS: Basophils Percent Auto 0.3 % (0-2); Eosinophils Absolute Auto 0.1 X10*3/uL (0.0-0.4); Eosinophils Percent Auto 1.7 % (0-4); Hematocrit 41.8 % (42.0-52.0); Hemoglobin 14.2 g/dl (14.0-18.0); Imm Gran Abs Auto 0.02 X10*3/uL (0.00-0.03); Imm Gran Pct Auto 0.3 % (0.0-0.4); Lymphocytes Absolute Auto 2.4 X10*3/uL (1.2-4.9); Lymphocytes Percent Auto 36.6 % (20-40); Mean Corpuscular Hemoglobin 31.2 pg (27.0-33.0); Mean Corpuscular Volume 91.9 fL (80.0-98.0); Mean Platelet Volume 9.7 fL (9.4-12.4); Monocytes Absolute Auto 0.5 X10*3/uL (0.1-1.2); Monocytes Percent Auto 6.9 % (2-11); Neutrophils Absolute Auto 3.6 x10*3/uL (2.0-8.3); Neutrophils Percent Auto 54.2 % (45-73); Platelet Count 244 X10*3/uL (160-400); Red Blood Count 4.55 X10*6/uL (4.60-5.80); Red Cell Distribution Width 12.9 % (11.0-16.0); White Blood Count 6.6 X10*3/uL (4.8-10.8)
[2023-01-14 12:02] LABS: Folate 15.5 ng/mL (> or = 4.0); Vitamin B12 < 148 pg/mL (200-900)
[2023-01-14 13:01] LABS: Alanine Aminotransferase 31 U/L (0-40); Albumin Level 4.2 g/dL (3.5-5.0); Alkaline Phosphatase 117 U/L (39-117); Anion Gap 12 (12-20); Aspartate Amino Transferase 33 U/L (5-37); Bilirubin Total 0.5 mg/dL (0.0-1.0); Blood Urea Nitrogen 14 mg/dL (9-16); Calcium 9.6 mg/dL (8.4-10.2); Carbon Dioxide 28 mmol/L (22-29); Chloride 105 mmol/L (96-108); Cholesterol 139 mg/dL; Estimated Glomerular Filt Rate > 60; Glucose Fasting 98 mg/dL (60-99); HDL Cholesterol 31 mg/dL; LDL Cholesterol Calculated 96 mg/dl; Potassium 4.2 mmol/L (3.3-5.1); Sodium 141 mmol/L (135-145); Triglycerides 63 mg/dL
[2023-01-20 14:09] LABS: Vitamin B1 8 nmol/L (8-30)
== END 2023-01-14 09:40 | disposition home or self-care (01) ==
LOC: HO.LAB 09:39
PROVIDERS: PCP Internal Medicine; Visit Provider Internal Medicine
DX: Z00.00 Encounter for general adult medical examination without abnormal findings (principal); R07.9 Chest pain, unspecified; F10.11 Alcohol abuse, in remission; E53.8 Deficiency of other specified B group vitamins; E55.9 Vitamin D deficiency, unspecified
CPT/HCPCS: 36415; 80053; 80061; 82306; 82607; 82746; 84425; 85025

== ENCOUNTER 2023-01-20 09:57 | Outpatient (REF) | payer MEDICARE, MEDICAID, SELFPAY ==
--- NOTE | ~2023-01-20 | US_ITS ---
EXAMINATION: US RETROPERITONEAL LIMITED (AORTA) CLINICAL INFORMATION: Personal history of nicotine dependence. COMPARISON: Ultrasound abdominal aorta dated 01/09/2019. TECHNIQUE: Fletcher-scale, color Doppler and spectral Doppler evaluation of the abdominal aorta. FINDINGS: The aorta is normal. The measurements of the aorta in maximum AP and transverse dimensions respectively are as follows: Proximal: 2.6 x 2.8 cm. Mid: 2.2 x 2.8 cm. Distal: 1.7 x 2.0 cm. PSV: 10.2 cm/s. The measurements of the common iliac arteries in maximum AP and TRV dimensions are as follows: Right Common Iliac Artery: 1.4 x 1.4 cm. Left Common Iliac Artery: 1.4 x 1.1 cm. 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
--- NOTE | ~2023-01-20 | XR_ITS ---
EXAMINATION: XR CERVICAL SPINE CLINICAL INFORMATION: Neck pain COMPARISON: 10/23/2014 TECHNIQUE: 4 views of the cervical spine were obtained. FINDINGS: Straightening of the normal cervical lordosis. C7 obscured by overlying soft tissues. Moderate cervical spondylosis with prominent anterior osteophytes at C4-C5 and C5-C6. Mild loss of disc space height at C5-C6. XR/XR cervical spine 2V IMPRESSION: Moderate degenerative changes at C4-C5 and C5-C6.
== END 2023-01-20 09:58 | disposition home or self-care (01) ==
LOC: HO.US 09:57
PROVIDERS: PCP Internal Medicine; Visit Provider Internal Medicine
DX: Z13.6 Encounter for screening for cardiovascular disorders (principal); Z87.891 Personal history of nicotine dependence; M54.2 Cervicalgia
CPT/HCPCS: 72040; 76706

== ENCOUNTER 2023-06-08 15:03 | Outpatient (AMB) | payer MEDICARE, MEDICAID, SELFPAY ==
[2023-06-08 15:13] VITALS: BP 130/72; PULSE 64; O2SAT 97; BMI 27.6
--- NOTE | 2023-06-08 15:13 | A.OFFPC_ITS ---
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 Required: Yes Assistant Cross Country Coach Language: Northern Irish Allergies No Known Allergies Allergy (Verified 06/08/23 15:29) Medication List - Last Reconciled 06/08/23 by JONATAN Flowers acetaminophen (Tylenol Extra Strength) 500 mg PO Q6H PRN albuterol sulfate 2.5 mg (3 mL) inhalation QID PRN 30 days baclofen 10 mg PO TID 3 days cholecalciferol (vitamin D3) 50 mcg PO DAILY 90 days cyanocobalamin (vitamin B-12) 1,000 mcg PO DAILY 90 days folic acid 1 mg PO DAILY 90 days ibuprofen 800 mg PO BID PRN nebulizers (AeroEclipse II Nebulizer) As directed trazodone 50 mg PO BEDTIME PRN 90 days Ventolin HFA 90 mcg/actuation (albuterol sulfate) 1 inh inhalation QID PRN 30 days NS Tobacco use date assessed: 06/08/23 Fall risk assessment: No Falls in past year Last assessed Fall Risk: 06/08/23 HPI Vitamin D3 F/U HPI Details Patient is a 68-year-old male who presents today to follow-up on his chronic conditions. Patient of Dr. Andrea. Medical history significant for asthma-patient reports dry cough and wheezing at night for the past 2 weeks- reports inhaler with only minimal relief in symptoms, vitamin B12 deficiency, vitamin-D deficiency, insomnia-reports that trazodone is not helping him anymore. No chest pain. Patient is a Northern Irish-speaking and [place] [employer] was helping with interpretation. [facility] Medical History Insomnia Physical exam History of alcoholism Asthma Surgical History History of removal of cyst Family History Father Alcoholism Substance use disorder Mother Hypertension Maternal Uncle Stroke Diabetes Hypertension Sister No problems noted. 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 How often do you have a drink containing alcohol?: Never Total Score: 0 Score Reviewed/Action Taken: No AMRIT-7 AMB Questionnaire AMRIT-7 Date AMRIT - 7 assessed: 01/11/23 Source: Developed by Drs. Ji Estrella, Anca Solorzano, Jake Sanabria and colleagues, with an educational yenny from [employer]. Review of Systems Const Denies body aches, Denies chills, Denies fever(s) and Denies headache(s) ENT Denies dizziness, Denies otalgia, Denies headache(s), Denies nasal discharge, Denies sinus pain and Denies sore throat Card Denies chest pain, Denies edema, Denies lightheadedness and Denies dyspnea Resp Reports cough, Denies dyspnea and Reports wheezing GI Denies abdominal pain Denies dysuria Musc Denies myalgias Skin/Breast Denies rash Neuro Denies dizziness and Denies headache(s) Aller/Immun Reports wheezing Physical exam (Primary Care) Vital Signs: Last Vital Signs Pulse 64 06/08/23 15:13 BP 130/72 06/08/23 15:13 Pulse Ox 97 06/08/23 15:13 Oxygen Delivery Method Room Air 06/08/23 15:13 BMI result Body Mass Index 27.6 Tobacco/Smoking Status: Tobacco use Status Tobacco use date assessed 06/08/23 06/08/23 15:18 Patient Tobacco Use Status Former Tobacco user 06/08/23 15:18 e-Cigarette/Vaping Use Never Used 06/08/23 15:18 Thrive Assessment: Date of Thrive Assessment Date Thrive assessed 01/11/23 06/08/23 15:18 Const General: cooperative and no acute distress Orientation/consciousness: patient oriented x3 HENMT Head: Yes normocephalic and Yes atraumatic Face and sinus: Yes sinuses nontender Mouth: oropharynx normal and moist mucous membranes Throat: Yes posterior oropharynx normal Eyes General: appearance normal, both eyes and all related structures Neck Neck: Yes normal visual inspection, Yes full ROM and Yes no lymphadenopathy Resp Effort & Inspection: normal respiratory effort, able to speak in complete sentences and Actively coughing Quality: dry Auscultation: clear to auscultation bilaterally (Bilateral upper), no crackles, no rales, no rhonchi and wheezes (Bilateral lower) Cardio Rate: regular rate Rhythm: regular rhythm Heart sounds: S1 normal heart sound present, S2 normal heart sound present and no murmurs GI Auscultation: normal bowel sounds Skin General skin exam: no rashes or lesions noted Neuro General: patient oriented x3 Gait exam (Neuro): Normal gait present Extrem General: Yes full ROM and No edema Assessment and Plan Assessment & Plan (1) Insomnia: Code(s): G47.00 - Insomnia, unspecified Plan: Increase trazodone to 75 mg at bedtime as needed Reinforced sleep hygiene (2) Vitamin D deficiency: Code(s): E55.9 - Vitamin D deficiency, unspecified Plan: Will check level (3) Vitamin B12 deficiency: Code(s): E53.8 - Deficiency of other specified B group vitamins Plan: Will check level (4) Asthma: Code(s): J45.909 - Unspecified asthma, uncomplicated Qualifiers: Asthma severity: moderate Asthma persistence: persistent Asthma complication type: with acute exacerbation Qualified Code(s): J45.41 - Moderate persistent asthma with (acute) exacerbation Plan: Asthma exacerbation Start prednisone for 5 days Will provide patient with nebulizer treatments p.r.n./albuterol inhaler Follow-up if no improvement after finishing prednisone Plan Follow-up with PCP in 4 months or sooner as needed Orders: Orders Vitamin D 25-OH Total Today E55.9 - Vitamin D deficiency, unspecified Vitamin B12 and Folate Today E53.8 - Deficiency of other specified B group vitamins Medications: New miscellaneous medical supply nebulizer machine with tubing 1 ea miscellaneous DAILY 1 ea 0RF J45.909 - Unspecified asthma, uncomplicated prednisone 40 mg (2 x 20 mg) PO DAILY 5 days 10 tabs 0RF J45.909 - Unspecified asthma, uncomplicated Changed From trazodone 50 mg PO BEDTIME 90 days PRN 90 tabs 1RF sleep G47.00 - Insomnia, unspecified To trazodone 75 mg (1.5 x 50 mg) PO BEDTIME 90 days PRN 90 tabs 1RF sleep G47.00 - Insomnia, unspecified Refilled albuterol sulfate 2.5 mg (3 mL) inhalation QID 30 days PRN 75 mL 0RF shortness of breath or wheezing J45.909 - Unspecified asthma, uncomplicated Coding Level of Care Code Est Pt Level 4 (39610) Diagnoses Insomnia G47.00 Vitamin D deficiency E55.9 Vitamin B12 deficiency E53.8 Moderate persistent asthma with acute exacerbation J45.41 Asthma severity: moderate Asthma persistence: persistent Asthma complication type: with acute exacerbation
== END 2023-06-08 15:43 | disposition home or self-care (01) ==
PROVIDERS: PCP Internal Medicine; Visit Provider Nurse Practitioner Family
DX: G47.00 Insomnia, unspecified (principal); E55.9 Vitamin D deficiency, unspecified; E53.8 Deficiency of other specified B group vitamins; J45.41 Moderate persistent asthma with (acute) exacerbation
CPT/HCPCS: 99214

== ENCOUNTER 2023-06-12 15:16 | Outpatient (AMB) | payer MEDICARE, MEDICAID, SELFPAY ==
--- NOTE | 2023-06-12 15:27 | AM.OFFVISNUR ---
Intake Intake Visit Reasons: tb shot Allergies No Known Allergies Allergy (Verified 06/08/23 15:29) Office Meds tuberculin PPD 5 tub. unit/0.1 mL intradermal injection solution Performing Provider: Shirlene Gonzales MD [facility] Administered by: Julissa Duarte RN on 06/12/23 15:27 Dose Route Admin Location Dispensed Lot Number Expiration Date NDC Stone Layer 0.1 mL intradermal left forearm 0.1 mL [id number] 07/29/26 93886-731-32 [employer] Coding Assessment & Plan Assessment & Plan Orders: Orders AMB PPD Planted Today Z11.1 - Encounter for screening for respiratory tuberculosis
== END 2023-06-12 15:27 | disposition home or self-care (01) ==
PROVIDERS: PCP Internal Medicine; Visit Provider Internal Medicine
DX: Z11.1 Encounter for screening for respiratory tuberculosis (principal)
CPT/HCPCS: 86580

== ENCOUNTER 2023-06-13 08:11 | Outpatient (REF) | payer MEDICARE, MEDICAID, SELFPAY ==
[2023-06-13 09:36] LABS: Vitamin D 25-OH Total 34.1 ng/mL (>30)
[2023-06-13 09:49] LABS: Folate 14.4 ng/mL (> or = 4.0); Vitamin B12 386 pg/mL (200-900)
== END 2023-06-13 08:12 | disposition home or self-care (01) ==
LOC: HO.LAB 08:11
PROVIDERS: PCP Nurse Practitioner Family; Visit Provider Nurse Practitioner Family
DX: E53.8 Deficiency of other specified B group vitamins (principal); E55.9 Vitamin D deficiency, unspecified
CPT/HCPCS: 36415; 82306; 82607; 82746

== ENCOUNTER 2023-07-09 13:12 | Emergency (ER) | payer MEDICARE, MEDICAID, SELFPAY ==
[2023-07-09 13:40] VITALS: BP 127/77; PULSE 100; RESP 18; TEMP 37.1; O2SAT 97; BMI 29.6
--- NOTE | 2023-07-09 13:40 | ED.URI ---
HPI - URI/Sore Throat General Chief Complaint: Upper Respiratory Symptoms Stated Complaint: asthma/ SOB Time Seen by Provider: 07/09/23 15:28 Source: patient Mode of arrival: ambulatory Limitations: no limitations History of Present Illness HPI Narrative: Patient is a 68-year-old Bangladeshi-speaking male with history of asthma presenting to the emergency department with complaint of nonproductive cough and shortness of breath since , reports subjective fever last night. Denies any chest pain or palpitations. Denies any abdominal pain, nausea, vomiting, diarrhea. States has been using his inhaler but last night had extended episode of coughing. MD elicited complaint: cough Pertinent past history: asthma Onset (ago): day(s) Consistency: constant Severity: severe Able to tolerate fluids by mouth: Yes Exacerbating factors: supine positioning Relieving factors: nothing Associated symptoms: denies other symptoms Treatments prior to arrival: other (Albuterol inhaler) Related Data Previous Rx's Medication Instructions Recorded ibuprofen 800 mg tablet 800 mg PO BID PRN pain #21 tabs 10/16/21 folic acid 1 mg tablet 1 mg PO DAILY 90 days #90 tabs 07/05/22 nebulizers (AeroEclipse II #1 ea 07/05/22 Nebulizer) cholecalciferol (vitamin D3) 50 50 mcg PO DAILY 90 days #90 caps 09/18/22 mcg (2,000 unit) capsule acetaminophen 500 mg tablet 500 mg PO Q6H PRN fever or pain 11/12/22 (Tylenol Extra Strength) #14 tabs baclofen 10 mg tablet 10 mg PO TID 3 days #9 tabs 01/11/23 cyanocobalamin (vitamin B-12) 1,000 mcg PO DAILY 90 days #90 caps 01/14/23 1,000 mcg capsule Ventolin HFA 90 mcg/actuation 1 inh inhalation QID PRN shortness 05/29/23 aerosol inhaler (albuterol sulfate) of breath or wheezing 30 days #8 grams albuterol sulfate 2.5 mg/3 mL 2.5 mg (3 mL) inhalation QID PRN 06/08/23 (0.083 %) solution for nebulization shortness of breath or wheezing 30 days #75 mL miscellaneous medical supply 1 ea miscellaneous DAILY #1 ea 06/08/23 prednisone 20 mg tablet 40 mg (2 x 20 mg) PO DAILY 5 days 06/08/23 #10 tabs trazodone 50 mg tablet 75 mg (1.5 x 50 mg) PO BEDTIME PRN 06/08/23 sleep 90 days #90 tabs azithromycin 250 mg tablet See Rx Instructions PO .COMPLEX #6 07/09/23 tabs benzonatate 100 mg capsule 100 mg PO TID PRN cough #14 caps 07/09/23 prednisone 20 mg tablet 40 mg (2 x 20 mg) PO DAILY #10 tabs 07/09/23 Allergies Allergy/AdvReac Type Severity Reaction Status Date / Time No Known Allergies Allergy Verified 06/08/23 15:29 Review of Systems Review of Systems: As per HPI. Yes all other systems are reviewed and are negative Constitutional: Constitutional: Reports as per HPI [facility] Past Medical History Medical History Insomnia Physical exam History of alcoholism Asthma Surgical History History of removal of cyst Family History Family History Father Alcoholism Substance use disorder Mother Hypertension Maternal Uncle Stroke Diabetes Hypertension Sister No problems noted. 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 Blood pressure normal. Heart rate normal. Respiratory rate normal. Temperature normal. Oxygen saturation normal. Const: General: cooperative, healthy appearing and no acute distress Orientation/consciousness: oriented to person, oriented to place, oriented to time and patient oriented x3 Limitations: no limitations HEENT: Head: Yes normocephalic and Yes atraumatic Ears: external ears normal General nose exam: Normal external nose present Face and sinus: Yes face symmetric Mouth: oropharynx normal and moist mucous membranes Throat: Yes uvula midline Eyes: Pupils: Equal, round and reactive pupils present Neck: Neck: Yes normal visual inspection and Yes supple Resp: Effort & Inspection: normal respiratory effort and able to speak in complete sentences Auscultation: clear to auscultation bilaterally and wheezes scattered wheezes Cardio: Rate: regular rate Rhythm: regular rhythm Heart sounds: S1 normal heart sound present and S2 normal heart sound present GI: Palpation (GI): Soft to palpation and nontender Auscultation: normoactive bowel sounds : General: Yes no CVA tenderness Back/Spine/Pelvis: Back: no CVA tenderness Skin: General skin exam: elasticity normal and turgor normal Neuro: General: oriented to person, oriented to place, oriented to time, patient oriented x3, moves all extremities, no focal motor deficits and CN's II-XI intact bilaterally Cranial nerves: Yes Equal, round and reactive pupils present Cognition (Neuro): normal cognition Extrem: General: Yes full ROM, Yes no pedal edema and Yes no calf tenderness Psych: Mental Status: mental status grossly normal Affect: normal affect Thought process: Normal thought process present Course Course Course Narrative: This is a rapid medical exam. Deferred additional HPI, ROS, PE to primary provider. 68yo male Bangladeshi Speaking with history of asthma here with complaints of cough, wheezing, shortness of breath, chills, headache since . No sick contact Will obtain testing for covid, rsv, flu VSS Medical Decision Making Medical Decision Making MDM Narrative: Patient is a 68-year-old Bangladeshi-speaking male with history of asthma presenting to the emergency department with complaint of nonproductive cough and shortness of breath since , reports subjective fever last night. On exam patient is awake, A+Ox3, VS WNL, afebrile, normal neurological exam without focal deficits, physical exam findings as above. Given reported symptoms and physical exam findings, initial differential includes asthma exacerbation, viral illness, COVID, flu, RSV, bronchitis. Swabs for RSV positive, COVID and flu negative. Results discussed with patient all questions answered. Will treat patient with course of azithromycin, prednisone, benzonatate. Patient reports that he has adequate albuterol inhaler at home. Instructed patient to follow-up with primary care provider. Return precautions discussed at bedside. Patient verbalized understanding of and agreement with plan. Differential Diagnosis Differential Diagnoses: The differential diagnosis associated with the presentation includes As per [facility]. Lab Data [facility] Lab Attestation statement: I reviewed the patient's lab results. As per [facility]. Labs: Lab Results 07/09/23 Range/Units 13:59 Influenza Type A (PCR) NEGATIVE (Negative) Influenza Type B (PCR) NEGATIVE (Negative) RSV RNA Qual (PCR) POSITIVE A (Negative) SARS-CoV-2 RNA (RT-PCR) NEGATIVE (Negative) External Record Review External record reviewed: Inpatient record, Office record and Outpatient record Prescription Management I considered prescription management with: Other Chronic Conditions Patient?s care impacted by: Other (Asthma) Discharge Plan Discharge Clinical Impression: RSV infection, Asthma exacerbation, mild Patient Disposition: Home, Self-Care Instructions: Respiratory Syncytial Virus (ED), Asthma (DC) Additional Instructions: Usted fue evaluado hoy en el departamento de emergencias por dificultad para respirar y tos. Yair positivo por RSV, que es un virus que se resolver? por s? solo con el tiempo y el descanso. Est? siendo tratado con un tratamiento con antibi?ticos, esteroides y medicamentos para la tos. [place] todos los medicamentos seg?n lo recetado. [place] un seguimiento con lambert proveedor de atenci?n primaria esta semana. Regrese al departamento de emergencias si presenta dificultad para respirar, dolor en el pecho, fiebre de 100.4 ?F o m?s o cualquier otro s?ntoma preocupante que empeore. Prescriptions: New azithromycin 250 mg tablet See Rx Instructions .ROUTE .COMPLEX Qty: 6 0RF Rx Instructions: For 250 mg dose pack: take 500 mg today (day 1), then 250 mg for 4 days (days 2-5) prednisone 20 mg tablet 40 mg PO DAILY Qty: 10 0RF benzonatate 100 mg capsule 100 mg PO TID PRN (Reason: cough) Qty: 14 0RF No Action cholecalciferol (vitamin D3) 50 mcg (2,000 unit) capsule 50 mcg PO DAILY 90 Days Qty: 90 2RF cyanocobalamin (vitamin B-12) 1,000 mcg capsule 1,000 mcg PO DAILY 90 Days Qty: 90 3RF albuterol sulfate [Ventolin HFA] 90 mcg/actuation HFA aerosol inhaler 1 inh inhalation QID PRN (Reason: shortness of breath or wheezing) 30 Days Qty: 8 3RF acetaminophen [Tylenol Extra Strength] 500 mg tablet 500 mg PO Q6H PRN (Reason: fever or pain) Qty: 14 0RF baclofen 10 mg tablet 10 mg PO TID 3 Days Qty: 9 0RF folic acid 1 mg tablet 1 mg PO DAILY 90 Days Qty: 90 1RF (DME) AeroEclipse II Nebulizer Misc See Rx Instructions .Route Qty: 1 0RF Rx Instructions: As directed trazodone 50 mg tablet 75 mg PO BEDTIME PRN (Reason: sleep) 90 Days Qty: 90 1RF Hold Instructions: Dose Change miscellaneous medical supply Misc 1 ea miscellaneous DAILY Qty: 1 0RF Rx Instructions: nebulizer machine with tubing albuterol sulfate 2.5 mg /3 mL (0.083 %) solution for nebulization 2.5 mg inhalation QID PRN (Reason: shortness of breath or wheezing) 30 Days Qty: 75 0RF prednisone 20 mg tablet 40 mg PO DAILY 5 Days Qty: 10 0RF ibuprofen 800 mg tablet 800 mg PO BID PRN (Reason: pain) Qty: 21 0RF Print Language: Bangladeshi
[2023-07-09 14:47] LABS: Influenza A PCR NEGATIVE (Negative); Influenza B PCR NEGATIVE (Negative); Resp Syncy Virus RNA Qual PCR POSITIVE (Negative); SARS COV2 PCR INHOUSE NEGATIVE (Negative)
== END 2023-07-09 16:42 | disposition home or self-care (01) ==
PROVIDERS: Nurse Practitioner Family; Emergency Provider Emergency Medicine Emergency Medical Services; PCP Internal Medicine
DX: J45.901 Unspecified asthma with (acute) exacerbation (principal); B97.4 Respiratory syncytial virus as the cause of diseases classified elsewhere; Z20.822 Contact with and (suspected) exposure to COVID-19; Z20.828 Contact with and (suspected) exposure to other viral communicable diseases
CPT/HCPCS: 0241U; 99282; 99283

== ENCOUNTER 2023-07-11 11:20 | Emergency (ER) | payer MEDICARE, MEDICAID, SELFPAY ==
--- NOTE | ~2023-07-11 | XR_ITS ---
EXAMINATION: XR CHEST 2 VIEW CLINICAL INFORMATION: Chest pain with cough COMPARISON: 09/01/2021 TECHNIQUE: PA and lateral views of the chest obtained. FINDINGS: There is new masslike consolidation in the right lower lobe. There is also a new 13 mm indistinct nodule in the left perihilar region. No pleural effusions are evident. The cardiac silhouette is not enlarged. The aorta is uncoiled. XR/XR chest 2V IMPRESSION: 1. New right lower lobe masslike consolidation and indistinct left perihilar nodule. Contrast-enhanced thoracic CT is suggested for further evaluation as clinically warranted. Although perhaps infectious, neoplasm is not excluded.
--- NOTE | ~2023-07-11 | CT_ITS ---
EXAMINATION: CT CHEST WITH CONTRAST CLINICAL INFORMATION: Lung mass COMPARISON: Chest x-ray today TECHNIQUE: Multidetector volumetric CT imaging of the chest was obtained after the administration of 65 mL of Omnipaque 350 intravenous contrast without immediate adverse reactions. Axial MIP volume rendering provided. Sagittal and coronal reformatted images were obtained. This CT examination was performed using dose optimization techniques as appropriate, variously including the following: *Automated exposure control *Adjustment of mA and/or kV according to patient size (this includes techniques or standardized protocols for targeted exams where dose is matched to indication/reason for exam; i.e. extremities or head) *Use of iterative reconstruction technique DLP: 230 mGy-cm FINDINGS: LUNGS: Masslike consolidation with ill-defined margins in the right lower lobe measuring up to 5.2 cm in size with air bronchograms through this area. There are additional patchy areas of smaller airspace disease bilaterally. Infectious or inflammatory causes would be recommended. MEDIASTINUM: Shotty hilar and mediastinal lymph nodes more likely reactive in nature PLEURA: There is no pleural effusion. No pleural mass or thickening. AXILLA: No lymphadenopathy. UPPER ABDOMEN: Diffuse fatty infiltration of the liver but no focal hepatic lesion or obvious biliary ductal dilatation. Small hiatal hernia OSSEOUS STRUCTURES: Degenerative changes in the spine CT/CT chest w IV con IMPRESSION: Masslike consolidation in the right lower lobe with additional patchy areas of airspace disease scattered bilaterally. Infectious or inflammatory causes would be favored with this appearance and distribution. Follow-up imaging to assure resolution after treatment would be recommended.
--- NOTE | 2023-07-11 11:28 | ECG_ITS ---
Test Reason : cp Blood Pressure : / mmHG Vent. Rate : 101 BPM Atrial Rate : 101 BPM P-R Int : 174 ms QRS Dur : 072 ms QT Int : 312 ms P-R-T Axes : 001 067 028 degrees QTc Int : 404 ms Sinus tachycardia Otherwise normal ECG When compared with ECG of 12-NOV-2022 11:37, [place] interval has decreased Vent. rate has increased BY 41 BPM Referred By: Generic ED Physician Electronically Signed By:Camden Zimmerman
[2023-07-11 11:58] VITALS: BP 104/60; PULSE 99; RESP 17; TEMP 37.9; O2SAT 95; BMI 29.1
--- NOTE | 2023-07-11 11:58 | ED_ITS ---
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 Patient was diagnosed with RSV 3 days ago on Monday. He was prescribed azithromycin, prednisone and benzonatate. Patient reports he did not take the medications until started then this morning He reports increased cough, left upper back pain and chest pain He also reports fever Patient reports a very remote history of smoking when he was 16 years old He denies any history of cancer in the family or personal history of cancer Related Data Previous Rx's Medication Instructions Recorded ibuprofen 800 mg tablet 800 mg PO BID PRN pain #21 tabs 10/16/21 folic acid 1 mg tablet 1 mg PO DAILY 90 days #90 tabs 07/05/22 nebulizers (AeroEclipse II #1 ea 07/05/22 Nebulizer) cholecalciferol (vitamin D3) 50 50 mcg PO DAILY 90 days #90 caps 09/18/22 mcg (2,000 unit) capsule acetaminophen 500 mg tablet 500 mg PO Q6H PRN fever or pain 11/12/22 (Tylenol Extra Strength) #14 tabs baclofen 10 mg tablet 10 mg PO TID 3 days #9 tabs 01/11/23 cyanocobalamin (vitamin B-12) 1,000 mcg PO DAILY 90 days #90 caps 01/14/23 1,000 mcg capsule Ventolin HFA 90 mcg/actuation 1 inh inhalation QID PRN shortness 05/29/23 aerosol inhaler (albuterol sulfate) of breath or wheezing 30 days #8 grams albuterol sulfate 2.5 mg/3 mL 2.5 mg (3 mL) inhalation QID PRN 06/08/23 (0.083 %) solution for nebulization shortness of breath or wheezing 30 days #75 mL miscellaneous medical supply 1 ea miscellaneous DAILY #1 ea 06/08/23 prednisone 20 mg tablet 40 mg (2 x 20 mg) PO DAILY 5 days 06/08/23 #10 tabs trazodone 50 mg tablet 75 mg (1.5 x 50 mg) PO BEDTIME PRN 06/08/23 sleep 90 days #90 tabs azithromycin 250 mg tablet See Rx Instructions PO .COMPLEX #6 07/09/23 tabs benzonatate 100 mg capsule 100 mg PO TID PRN cough #14 caps 07/09/23 prednisone 20 mg tablet 40 mg (2 x 20 mg) PO DAILY #10 tabs 07/09/23 amoxicillin 875 mg-potassium 1 tab PO BID #14 tabs 07/11/23 clavulanate 125 mg tablet Allergies Allergy/AdvReac Type Severity Reaction Status Date / Time No Known Allergies Allergy Verified 06/08/23 15:29 Review of Systems 2 Constitutional: Constitutional: Reports body ache(s), Reports chills, Reports fever(s) and Denies headache(s) ENT: Denies headache(s) Cardiovascular: Cardiovascular: Reports chest pain and Reports dyspnea Respiratory: Respiratory: Reports cough, Reports pain with cough and Reports dyspnea Gastrointestinal: Gastrointestinal: Denies abdominal pain, Denies nausea and Denies vomiting Musculoskeletal: Musculoskeletal: Reports back pain Integumentary/Breasts: Skin/Breast: Denies rash Neurologic: Denies headache(s) [facility] Past Medical History Medical History Insomnia Physical exam History of alcoholism Asthma Surgical History History of removal of cyst Family History Family History Father Alcoholism Substance use disorder Mother Hypertension Maternal Uncle Stroke Diabetes Hypertension Sister No problems noted. 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 Cognitive needs: No Hearing needs: No Vision needs: No Physical Exam 2 Vital Signs: Vital Signs: Last Vital Signs Temp 100.2 F 07/11/23 11:58 Pulse 97 07/11/23 17:01 Resp 18 07/11/23 17:01 BP 104/60 07/11/23 11:58 Pulse Ox 97 07/11/23 17:01 O2 Del Method Room Air 07/11/23 17:01 BMI result Body Mass Index 29.1 Const: General: healthy appearing, comfortable, no acute distress, alert and awake Nutritional Appearance: well nourished Orientation/consciousness: p atient oriented x3 HEENT: Head: Yes normocephalic and Yes atraumatic Eyes: Eyelids: Yes eyelids normal Conjunctivae: conjunctivae normal S clerae: sclerae normal Corneas: corneas normal Pupils: Equal, round and reactive pupils present EOM: EOMs intact bilaterally Neck: Neck: Yes full ROM Resp: Effort & Inspection: normal respiratory effort, able to speak in complete sentences, no audible wheezes and not labored Auscultation: clear to auscultation bilaterally Cardio: Rate: regular rate Rhythm: regular rhythm GI: Inspection: No distended Palpation (GI): Soft to palpation, not firm, nontender, no guarding and not rigid Skin: General skin exam: elasticity normal Neuro: General: patient oriented x3 Cranial nerves: Yes Equal, round and reactive pupils present and Yes Bilaterally intact EOM present Cognition (Neuro): normal cognition Course Course Course Narrative: RME: 68-year-old Romansh speaking male with a past medical history depression, ETOH abuse, asthma, +RSV on 07/09/23 presenting to ED c/o cough, CP & back pain w/coughing, HITCHCOCK, & myalgias worsening since RSV Dx. Patient reports compliance w/Rx Zithromax, prednisone, and Tessalon Perles 100.2 in triage orally. sating 95% on RA EKG, CXR & Albuterol/ Tylenol ordered Full HPI, ROS and PE to be performed by primary ED provider. Reevaluation(s) Reevaluation #1: Patient's x-ray shows more concern for consolidation verses neoplasm. Will treat the patient for community-acquired pneumonia, he started azithromycin earlier today, will add Augmentin. He is not hypoxic or in respiratory distress, so I do not feel he requires admission. He will require follow-up x- ray after treatment for community-acquired pneumonia. Time: 20:04 Medications Administered Discontinued Medications Generic Name Dose Route Start Last Admin Trade Name Freq PRN Reason Stop Dose Admin Acetaminophen 650 mg 07/11/23 12:03 07/11/23 12:09 Acetaminophen 325 Mg Tablet PO 07/11/23 12:04 650 mg ONCE ONE Administration Albuterol Sulfate 4 puff 07/11/23 12:03 07/11/23 12:22 Albuterol Sulfate 90 Mcg 8 Gm Inhaler INHALE 07/11/23 12:04 4 puff ONCE ONE Administration Iohexol 65 ml 07/11/23 18:38 07/11/23 18:39 Iohexol 350 Mg/Ml 100 Ml Infus..Btl IV 07/11/23 18:39 65 ml ONCE ONE Administration Medical Decision Making Medical Decision Making [facility] Narrative: With 68-year-old male presents for evaluation of worsening cough, chest pain. He is known to be positive for RSV and was negative for influenza, COVID-19. A chest x-ray was ordered in triage which shows a right lower lobe masslike infiltrate is concerning for neoplastic disease verses dense consolidation. Will get a CT scan with IV contrast to better evaluate. EKG is sinus tachycardia with no ischemia, ectopy. Plan for labs, CT chest. The patient does not have right sided chest pain or back pain, this mass is likely an incidental finding and not responsible for the patient's current symptoms. I think his back pain and chest pain is likely related to the increased coughing due to RSV. He is not hypoxic or in any respiratory distress Differential Diagnosis Differential Diagnoses: The differential diagnosis associated with the presentation includes RSV Lung Cancer Pneumonia Bronchitis Upper respiratory infection Lab Data 07/11/23 17:53 07/11/23 17:53 Labs: Lab Results 07/11/23 Range/Units 17:53 WBC 10.7 (4.8-10.8) X10*3/uL RBC 5.00 (4.60-5.80) X10*6/uL Hgb 15.4 (14.0-18.0) g/dl Hct 45.2 (42.0-52.0) % MCV 90.4 (80.0-98.0) fL MCH 30.8 (27.0-33.0) pg MCHC 34.1 (31.0-36.0) g/dl RDW 13.2 (11.0-16.0) % Plt Count 209 (160-400) X10*3/uL MPV 9.1 L (9.4-12.4) fL Immature Gran % (Auto) 0.4 (0.0-0.4) % Neut % (Auto) 82.3 H (45-73) % Lymph % (Auto) 11.8 L (20-40) % [place] % (Auto) 3.7 (2-11) % Eos % (Auto) 1.4 (0-4) % Baso % (Auto) 0.4 (0-2) % Lymph # (Auto) 1.3 (1.2-4.9) X10*3/uL [place] # (Auto) 0.4 (0.1-1.2) X10*3/uL Eos # (Auto) 0.2 (0.0-0.4) X10*3/uL Baso # (Auto) 0.0 (0.0-0.2) X10*3/uL Abs Immat Gran (auto) 0.04 H (0.00-0.03) X10*3/uL Absolute Neuts (auto) 8.8 H (2.0-8.3) x10*3/uL Absolute Nucleated RBC 0.000 (0.0-0.012) X10*3/uL Nucleated RBC % (auto) 0.0 (0.0-0.2) /100WBC PT 12.8 (11.1-13.3) SEC INR 1.1 (0.9-1.1) APTT 31.7 (26.0-36.4) SEC Sodium 136 (135-145) mmol/L Potassium 4.6 (3.3-5.1) mmol/L Chloride 99 (96-108) mmol/L Carbon Dioxide 26 (22-29) mmol/L Anion Gap 16 (12-20) BUN 15 (9-16) mg/dL Creatinine 0.98 (0.5-1.4) mg/dL Estim Creat Clear Calc 61.1 Estimated GFR > 60 Random Glucose 121 H (60-115) mg/dL Calcium 10.1 (8.4-10.2) mg/dL Total Bilirubin 0.7 (0.0-1.0) mg/dL AST 23 (5-37) U/L ALT 21 (0-40) U/L Alkaline Phosphatase 110 (39-117) U/L Troponin I High Sens < 2.7 (<3.5-35.0) ng/L B-Natriuretic Peptide 65 (<100) pg/mL Total Protein 8.6 H (6.5-8.0) g/dL Albumin 4.7 (3.5-5.0) g/dL Lipase 14 (8-78) U/L Independent Interpretation I performed an independent interpretation of an: EKG Interpretation: Sinus tachycardia with rate of 101 bpm. No ischemia Radiology Impression Discussion of test interpretation with radiology: I have reviewed the radiologist's reading. (Right lower lobe consolidated mass as well as 13 mm left perihilar nodule) Discharge Plan Discharge Clinical Impression: RSV infection, Community acquired pneumonia Patient Disposition: Home, Self-Care Instructions: Community Acquired Pneumonia (ED) Additional Instructions: Your x-ray shows most likely right lower lobe pneumonia Continue taking the azithromycin that your prescribed and started today I recommend adding Augmentin daily for the next 7 days Follow-up with your primary doctor Return for new or worsening symptoms Prescriptions: New amoxicillin-pot clavulanate 875-125 mg tablet 1 tab PO BID Qty: 14 0RF No Action cholecalciferol (vitamin D3) 50 mcg (2,000 unit) capsule 50 mcg PO DAILY 90 Days Qty: 90 2RF cyanocobalamin (vitamin B-12) 1,000 mcg capsule 1,000 mcg PO DAILY 90 Days Qty: 90 3RF albuterol sulfate [Ventolin HFA] 90 mcg/actuation HFA aerosol inhaler 1 inh inhalation QID PRN (Reason: shortness of breath or wheezing) 30 Days Qty: 8 3RF acetaminophen [Tylenol Extra Strength] 500 mg tablet 500 mg PO Q6H PRN (Reason: fever or pain) Qty: 14 0RF azithromycin 250 mg tablet See Rx Instructions .ROUTE .COMPLEX Qty: 6 0RF Rx Instructions: For 250 mg dose pack: take 500 mg today (day 1), then 250 mg for 4 days (days 2-5) prednisone 20 mg tablet 40 mg PO DAILY Qty: 10 0RF benzonatate 100 mg capsule 100 mg PO TID PRN (Reason: cough) Qty: 14 0RF baclofen 10 mg tablet 10 mg PO TID 3 Days Qty: 9 0RF folic acid 1 mg tablet 1 mg PO DAILY 90 Days Qty: 90 1RF (DME) AeroEclipse II Nebulizer Misc See Rx Instructions .Route Qty: 1 0RF Rx Instructions: As directed trazodone 50 mg tablet 75 mg PO BEDTIME PRN (Reason: sleep) 90 Days Qty: 90 1RF Hold Instructions: Dose Change miscellaneous medical supply [facility] [place]a miscellaneous DAILY Qty: 1 0RF Rx Instructions: nebulizer machine with tubing albuterol sulfate 2.5 mg /3 mL (0.083 %) solution for nebulization 2.5 mg inhalation QID PRN (Reason: shortness of breath or wheezing) 30 Days Qty: 75 0RF prednisone 20 mg tablet 40 mg PO DAILY 5 Days Qty: 10 0RF ibuprofen 800 mg tablet 800 mg PO BID PRN (Reason: pain) Qty: 21 0RF
[2023-07-11] MEDS: Acetaminophen 325 MG TABLET 650 MG PO (12:09)
[2023-07-11 12:22] VITALS: PULSE 96; RESP 18; O2SAT 96
[2023-07-11] MEDS: Albuterol Sulfate 90 MCG 8 GM INHALER 4 PUFF INHALE (12:22)
[2023-07-11 17:01] VITALS: PULSE 97; RESP 18; O2SAT 97; O2SAT 98
[2023-07-11 18:04] LABS: MANUAL DIFF FLAG NO
[2023-07-11 18:08] LABS: Basophils Percent Auto 0.4 % (0-2); Eosinophils Absolute Auto 0.2 X10*3/uL (0.0-0.4); Eosinophils Percent Auto 1.4 % (0-4); Hematocrit 45.2 % (42.0-52.0); Hemoglobin 15.4 g/dl (14.0-18.0); Imm Gran Abs Auto 0.04 X10*3/uL (0.00-0.03); Imm Gran Pct Auto 0.4 % (0.0-0.4); Lymphocytes Absolute Auto 1.3 X10*3/uL (1.2-4.9); Lymphocytes Percent Auto 11.8 % (20-40); Mean Corpuscular HGB Conc 34.1 g/dl (31.0-36.0); Mean Corpuscular Hemoglobin 30.8 pg (27.0-33.0); Mean Corpuscular Volume 90.4 fL (80.0-98.0); Mean Platelet Volume 9.1 fL (9.4-12.4); Monocytes Absolute Auto 0.4 X10*3/uL (0.1-1.2); Monocytes Percent Auto 3.7 % (2-11); Neutrophils Absolute Auto 8.8 x10*3/uL (2.0-8.3); Neutrophils Percent Auto 82.3 % (45-73); Platelet Count 209 X10*3/uL (160-400); Red Cell Distribution Width 13.2 % (11.0-16.0); White Blood Count 10.7 X10*3/uL (4.8-10.8)
--- NOTE | 2023-07-11 18:08 | PC.NURSE ---
This RN placed 20g in antecubital, tolerated well, flushing well, labs drawn. at bedside, in no apparent distress, respirations even and unlabored.
[2023-07-11 18:18] LABS: INTERNATIONAL NORM RATIO 1.1 (0.9-1.1); Prothrombin Time 12.8 SEC (11.1-13.3)
[2023-07-11 18:20] LABS: Partial Thromboplastin Time 31.7 SEC (26.0-36.4)
[2023-07-11 18:24] LABS: Alanine Aminotransferase 21 U/L (0-40); Albumin Level 4.7 g/dL (3.5-5.0); Alkaline Phosphatase 110 U/L (39-117); Anion Gap 16 (12-20); Aspartate Amino Transferase 23 U/L (5-37); Bilirubin Total 0.7 mg/dL (0.0-1.0); Blood Urea Nitrogen 15 mg/dL (9-16); Calcium 10.1 mg/dL (8.4-10.2); Carbon Dioxide 26 mmol/L (22-29); Chloride 99 mmol/L (96-108); Creatinine Clr Calc Pharmacy 61.1; Estimated Glomerular Filt Rate > 60; Glucose Random 121 mg/dL (60-115); Lipase 14 U/L (8-78); Potassium 4.6 mmol/L (3.3-5.1); Sodium 136 mmol/L (135-145); Total Protein 8.6 g/dL (6.5-8.0)
[2023-07-11 18:30] LABS: B Type Natriuretic Peptide 65 pg/mL (<100)
[2023-07-11 18:34] LABS: Troponin-I High Sensitivity < 2.7 ng/L (<3.5-35.0)
[2023-07-11] MEDS: iohexoL 350 MG/ML 100 ML INFUS..BTL 65 ML IV (18:39)
[2023-07-11 20:19] VITALS: RESP 16
[2023-07-11] MEDS: Amoxicillin/Potassium Clav 875 MG TABLET PO (20:21)
== END 2023-07-11 20:57 | disposition home or self-care (01) ==
PROVIDERS: Physician Assistant; Emergency Provider Emergency Medicine; PCP Internal Medicine
DX: J12.1 Respiratory syncytial virus pneumonia (principal); R07.89 Other chest pain; R05.9 Cough, unspecified; R50.9 Fever, unspecified; R06.02 Shortness of breath; M54.50 Low back pain, unspecified; Z79.899 Other long term (current) drug therapy
CPT/HCPCS: 36415; 71046; 71260; 80053; 83690; 83880; 84484; 85025; 85610; 85730; 93005; 94640; 99284; 99285; Q9967

== ENCOUNTER → 2023-07-11 11:28 | Outpatient (BNV) | payer MEDICARE, MEDICAID, SELFPAY | PROVIDERS: PCP Internal Medicine; Visit Provider Internal Medicine Cardiovascular Disease | DX: R00.0 Tachycardia, unspecified (principal); R07.9 Chest pain, unspecified | CPT/HCPCS: 93010 ==

== ENCOUNTER 2023-07-13 16:47 | Outpatient (AMB) | payer MEDICARE, MEDICAID, SELFPAY ==
[2023-07-13 16:56] VITALS: BP 118/70
--- NOTE | 2023-07-13 16:56 | MHC.PC.OV ---
Vital Signs 07/13/23 16:56 Height 5 ft 2 in Weight 164 lb BMI 30.0 BP 118/70 Blood Pressure Location Lt brachial Position Sitting Intake Visit Reasons: 07/11 [facility] ED- chest/back pain; pneumonia? Intake Note: Patient here for a [facility] ED follow up RSV, Pneumonia Senior Writer Required: No Accompanied by: Spouse Allergies No Known Allergies Allergy (Verified 07/13/23 17:06) Medication List - Last Reconciled 07/13/23 by Shirlene Gonzales MD acetaminophen (Tylenol Extra Strength) 500 mg PO Q6H PRN albuterol sulfate 2.5 mg (3 mL) inhalation QID PRN 30 days amoxicillin-pot clavulanate 875-125 mg 1 tab PO BID azithromycin For 250 mg dose pack: take 500 mg today (day 1), then 250 mg for 4 days (days 2-5) baclofen 10 mg PO TID 3 days benzonatate 100 mg PO TID PRN cholecalciferol (vitamin D3) 50 mcg PO DAILY 90 days cyanocobalamin (vitamin B-12) 1,000 mcg PO DAILY 90 days folic acid 1 mg PO DAILY 90 days ibuprofen 800 mg PO BID PRN miscellaneous medical supply 1 ea miscellaneous DAILY nebulizers (AeroEclipse II Nebulizer) As directed prednisone 40 mg (2 x 20 mg) PO DAILY prednisone 40 mg (2 x 20 mg) PO DAILY 5 days trazodone 75 mg (1.5 x 50 mg) PO BEDTIME PRN 90 days Ventolin HFA 90 mcg/actuation (albuterol sulfate) 1 inh inhalation QID PRN 30 days NS Tobacco use date assessed: 06/08/23 Fall risk assessment: No Falls in past year Last assessed Fall Risk: 07/13/23 Dental Screening Dental Screen Date: 07/13/23 Did you have a dental visit in the last 12 months?: No Did you have a dental problem in the last 6 months where you did not have access to dental care?: No Was dental information given to patient?: Patient has dentist HPI HPI Comments History of Present Illness Details This is a 68-year-old male with B12 deficiency and low vitamin-D that comes today accompanied by for hospital discharge follow-up due to RSV infection complicated with pneumonia. Last chest CT show an infiltrate suggesting infection or inflammation. Chest x-ray will be repeated. Discharge date was 07/11/23. He has felt markedly improved but still coughing. On supplements for vitamin B12 and for vitamin-D. Had fever at the beginning but not anymore. [facility] Medical History (Updated 07/14/23 @ 12:29 by Shirlene Gonzales MD) Insomnia Physical exam History of alcoholism Asthma Surgical History History of removal of cyst Family History Father Alcoholism Substance use disorder Mother Hypertension Maternal Uncle Stroke Diabetes Hypertension Sister No problems noted. 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 Ji Estrella, Anca Solorzano, Jake Sanabria and colleagues, with an educational yenny from [employer]. Review of Systems Const All systems reviewed & are unremarkable except as noted in HPI and below Eyes Reports no additional complaints, Denies change in vision and Denies other visual disturbances Card Denies chest pain at rest, Denies chest pain with activity, Denies edema, Denies irregular heart rhythm, Denies claudication, Denies dyspnea, Denies dyspnea on exertion, Denies orthopnea, Denies paroxysmal nocturnal dyspnea and Denies slow heart rate Resp Denies cough, Denies dyspnea and Denies dyspnea on exertion GI Denies abdominal pain, Denies change in bowel habits, Denies excessive flatus, Denies nausea and Denies vomiting Denies urinary hesitancy, Denies urinary incontinence and Denies urinary urgency Musc Denies abnormal gait, Denies atrophy, Denies deformity and Denies limited range of motion Skin/Breast Denies bleeding lesions, Denies changing lesions and Denies rash Neuro Denies abnormal gait and Denies lack of coordination Physical exam (Primary Care) Vital Signs: Last Vital Signs BP 118/70 07/13/23 16:56 BMI result Body Mass Index 30.0 Tobacco/Smoking Status: Tobacco use Status Tobacco use date assessed 06/08/23 07/13/23 17:00 Patient Tobacco Use Status Former Tobacco user 07/13/23 17:00 e-Cigarette/Vaping Use Never Used 07/13/23 17:00 Thrive Assessment: Date of Thrive Assessment Date Thrive assessed 01/11/23 07/13/23 17:00 Eyes General: appearance normal, both eyes and all related structures Eyelids: Yes eyelids normal Conjunctivae: conjunctivae normal Neck Neck: Yes normal visual inspection and Yes supple Resp Effort & Inspection: normal respiratory effort Auscultation: clear to auscultation bilaterally Cardio Jugular venous distension: no JVD Rate: regular rate Rhythm: regular rhythm Heart sounds: S1 normal heart sound present and S2 normal heart sound present Extrem General: Yes full ROM Assessment and Plan Assessment & Plan (1) Hospital discharge follow-up: Code(s): Z09 - Encounter for follow-up examination after completed treatment for conditions other than malignant neoplasm Plan: Discharge date 07/11/2023 due to RSV complicated with pneumonia. Patient was given prednisone and Augmentin. Had a chest CT showing an abnormality that could be due to infection or inflammation. Chest x-ray will be repeated. Feels better. (2) Pneumonia: Code(s): J18.9 - Pneumonia, unspecified organism Qualifiers: Laterality: left Lung location: lower lobe of lung Pneumonia type: due to unspecified organism Qualified Code(s): J18.9 - Pneumonia, unspecified organism Plan: Continue Augmentin. (3) RSV infection: Code(s): B33.8 - Other specified viral diseases Plan: Continue prednisone. (4) Vitamin D deficiency: Code(s): E55.9 - Vitamin D deficiency, unspecified Plan: Continue vitamin-D supplement. (5) Vitamin B12 deficiency: Code(s): E53.8 - Deficiency of other specified B group vitamins Plan: Continue vitamin B12 supplements. Orders: Orders XR chest 2V 07/13/23 J18.9 - Pneumonia, unspecified organism Coding Level of Care Code TCM Mod MDM <= 7 Days Diagnoses Hospital discharge follow-up Z09 Pneumonia J18.9 Laterality: left Lung location: lower lobe of lung Pneumonia type: due to unspecified organism RSV infection B33.8 Vitamin D deficiency E55.9 Vitamin B12 deficiency E53.8 Time Spent (min) 24
== END 2023-07-13 17:13 | disposition home or self-care (01) ==
LOC: HO.HMGH 16:47
PROVIDERS: PCP Internal Medicine; Visit Provider Internal Medicine
DX: J18.9 Pneumonia, unspecified organism (principal); B33.8 Other specified viral diseases; E55.9 Vitamin D deficiency, unspecified; E53.8 Deficiency of other specified B group vitamins
CPT/HCPCS: 99214

== ENCOUNTER 2023-07-20 10:58 | Outpatient (REF) | payer MEDICARE, MEDICAID, SELFPAY ==
--- NOTE | ~2023-07-20 | XR_ITS ---
EXAMINATION: XR CHEST CLINICAL INFORMATION: Pneumonia COMPARISON: 07/11/2023. TECHNIQUE: 2 views of the chest were obtained. FINDINGS: Left midlung opacity is no longer present. Only minimal residual opacity identified at the right base. Heart and mediastinum within normal limits. No vascular congestion. No effusions. Bony structures are intact. XR/XR chest 2V IMPRESSION: Total resolution left midlung pneumonia, near-total resolution right lower lobe pneumonia.
== END 2023-07-20 10:59 | disposition home or self-care (01) ==
LOC: HO.XRAY 10:58
PROVIDERS: PCP Internal Medicine; Visit Provider Internal Medicine
DX: J18.9 Pneumonia, unspecified organism (principal)
CPT/HCPCS: 71046

== ENCOUNTER 2023-08-30 08:21 | Emergency (ER) | payer MEDICARE, MEDICAID, SELFPAY ==
[2023-08-30 08:30] VITALS: BP 122/71; PULSE 86; RESP 16; TEMP 36.5; O2SAT 98; BMI 26.9
--- NOTE | 2023-08-30 09:20 | ED_ITS ---
HPI - Extremity Problem General Chief complaint: Extremity Problem Stated complaint: R Leg Pain Time Seen by Provider: 08/30/23 08:56 Related Data Previous Rx's Medication Instructions Recorded ibuprofen 800 mg tablet 800 mg PO BID PRN pain #21 tabs 10/16/21 folic acid 1 mg tablet 1 mg PO DAILY 90 days #90 tabs 07/05/22 nebulizers (AeroEclipse II #1 ea 07/05/22 Nebulizer) cholecalciferol (vitamin D3) 50 50 mcg PO DAILY 90 days #90 caps 09/18/22 mcg (2,000 unit) capsule acetaminophen 500 mg tablet 500 mg PO Q6H PRN fever or pain 11/12/22 (Tylenol Extra Strength) #14 tabs baclofen 10 mg tablet 10 mg PO TID 3 days #9 tabs 01/11/23 cyanocobalamin (vitamin B-12) 1,000 mcg PO DAILY 90 days #90 caps 01/14/23 1,000 mcg capsule Ventolin HFA 90 mcg/actuation 1 inh inhalation QID PRN shortness 05/29/23 aerosol inhaler (albuterol sulfate) of breath or wheezing 30 days #8 grams albuterol sulfate 2.5 mg/3 mL 2.5 mg (3 mL) inhalation QID PRN 06/08/23 (0.083 %) solution for nebulization shortness of breath or wheezing 30 days #75 mL miscellaneous medical supply 1 ea miscellaneous DAILY #1 ea 06/08/23 prednisone 20 mg tablet 40 mg (2 x 20 mg) PO DAILY 5 days 06/08/23 #10 tabs trazodone 50 mg tablet 75 mg (1.5 x 50 mg) PO BEDTIME PRN 06/08/23 sleep 90 days #90 tabs azithromycin 250 mg tablet See Rx Instructions PO .COMPLEX #6 07/09/23 tabs benzonatate 100 mg capsule 100 mg PO TID PRN cough #14 caps 07/09/23 prednisone 20 mg tablet 40 mg (2 x 20 mg) PO DAILY #10 tabs 07/09/23 amoxicillin 875 mg-potassium 1 tab PO BID #14 tabs 07/11/23 clavulanate 125 mg tablet ketorolac 10 mg tablet 10 mg PO TID PRN pain 5 days #15 08/30/23 tabs lidocaine 5 % topical patch 1 patch topical DAILY PRN pain #15 08/30/23 ea prednisone 20 mg tablet 20 mg PO DAILY 5 days #5 tabs 08/30/23 Allergies Allergy/AdvReac Type Severity Reaction Status Date / Time No Known Allergies Allergy Verified 07/13/23 17:06 Review of Systems Review of Systems: Constitutional : No Weight loss, No Fever, No Chills, ENT/Mouth : No Hearing loss, No Ear Pain, No Nasal Congestion, No Sinus Pain, No Hoarseness, No sore throat, No Rhinorrhea, No Swallowing Difficulty Cardiovascular : No Chest Pain, No SOB Respiratory : No Cough, No Dyspnea Gastrointestinal : No Nausea, No Vomiting, No Diarrhea, No abdominal Pain, No Hematochezia, No Melena Genitourinary : No Dysuria, No Urinary Frequency, No Hematuria, No Urinary Incontinence, Musculoskeletal : positive back pain Skin : No Skin Lesions, No rash Neuro : No Weakness, No Numbness, No Paresthesias, no loss of bowel or bladder incontinence, no saddle anesthesia Yes all other systems are reviewed and are negative [facility] Past Medical History Attestation statement: The following information was validated with the patient. Source: old records reviewed and nursing notes reviewed Medical History Insomnia Physical exam History of alcoholism Asthma Surgical History History of removal of cyst Family History Family History Father Alcoholism Substance use disorder Mother Hypertension Maternal Uncle Stroke Diabetes Hypertension Sister No problems noted. 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 Oriented X3.? No acute distress.? Head: Normocephalic, atraumatic, no step-offs or deformities Eyes: Pupils equal, round and reactive to light.? Neck: Normal inspection.? Neck supple.? CVS: Normal heart rate and rhythm.? Pulses normal.? Respiratory: No respiratory distress.? Breath sounds normal.? Abdomen: Soft and nontender.? Skin: Skin warm and dry.? Normal skin color.? Normal skin turgor.? Extremities: No lower extremity edema.? No calf ttp. 5/5 strength to bilateral upper and lower extremities. No saddle paresthesias. Patient does have some discomfort with palpation of right lower lumbar region into right buttocks. Ambulatory with steady gait normal coordination. No midline tenderness to back. Neuro: Oriented X 3.? No motor deficit.? No sensory deficit. CN 2-12 intact Course Reevaluation(s) Reevaluation #1: Patient feels much better after Toradol. Ambulating with steady gait normal coordination. Educated patient on diagnosis and treatment plan, answered all question, patient verbalizes understanding. At this time patient will be discharged home, advised to return with new or worsening symptoms. Educated on worrisome signs and symptoms and when to return. At this time I feel comfortable discharge home. Time: 09:55 Medications Administered Discontinued Medications Generic Name Dose Route Start Last Admin Trade Name Sixto PRN Reason Stop Dose Admin Ketorolac Tromethamine 30 mg 08/30/23 09:23 08/30/23 09:29 Ketorolac Tromethamine 15 Mg/Ml Vial IVPUSH 08/30/23 09:24 30 mg ONCE ONE Administration Lidocaine 1 patch 08/30/23 09:23 08/30/23 09:30 Lidocaine 4 % Patch Adh..Patch TRANSDERMA 08/30/23 09:24 1 patch ONCE ONE Administration Protocol Medical Decision Making Medical Decision Making MDM Narrative: 68-year-old male presents with right lower back pain/buttocks pain with radiation to right lower extremity just above the right knee x3 weeks. Atraumatic Physical exam significant for No lower extremity edema.? No calf ttp. 5/5 strength to bilateral upper and lower extremities. No saddle paresthesias. Patient does have some discomfort with palpation of right lower lumbar region into right buttocks. Ambulatory with steady gait normal coordination. No midline tenderness to back. Discharge Plan Discharge Clinical Impression: Lumbar radiculopathy Patient Disposition: Home, Self-Care Instructions: Lumbar Radiculopathy (ED), Back Pain (ED) Additional Instructions: Take your medications as prescribed. If you were prescribed antibiotics today, it is important that you take your medication to their entirety, do not skip any doses, do not finish them early. Follow-up with your primary care provider this week. Return to the emergency department with new or worsening symptoms. Such as fevers, chills, chest pain, shortness of breath, nausea, vomiting, dizziness, headache, vision changes, lethargy In case of emergency call 911 Toradol has been sent to your pharmacy, you tolerated this well in the department. Please take this as prescribed do not take this with ibuprofen, or other NSAIDs, do not mix this with alcohol. Side effects of this medication including increased risk for bleeding and possible kidney injury. [place] [facility] medicamentos seg?n lo recetado. Si hoy te recetaron antibi?ticos, es importante que tomes tu medicaci?n en lambert totalidad, no te saltes ninguna dosis, no las termines antes de tiempo. [place] un seguimiento con lambert proveedor de atenci?n primaria esta semana. Regrese al departamento de emergencias si los s?ntomas son nuevos o empeoran. [place] fiebre, escalofr?os, dolor de pecho, dificultad para respirar, n?useas, v?mitos, mareos, dolor de lluvia, cambios en la visi?n, letargo. En billy de emergencia llame al 911. Toradol todd sido enviado a lambert farmacia, lo sunshine? shanelle en el departamento. T?chamberlain seg?n lo prescrito, no lo tome con ibuprofeno u otros BLANK, no lo mezcle con alcohol. Los efectos secundarios de hiro medicamento incluyen un mayor riesgo de sangrado y posible lesi?n renal. Prescriptions: New prednisone 20 mg tablet 20 mg PO DAILY 5 Days Qty: 5 0RF ketorolac 10 mg tablet 10 mg PO TID PRN (Reason: pain) 5 Days Qty: 15 0RF lidocaine 5 % adhesive patch,medicated 1 patch topical DAILY PRN (Reason: pain) Qty: 15 0RF Rx Instructions: leave on most painful area for up to 12 hrs No Action cholecalciferol (vitamin D3) 50 mcg (2,000 unit) capsule 50 mcg PO DAILY 90 Days Qty: 90 2RF cyanocobalamin (vitamin B-12) 1,000 mcg capsule 1,000 mcg PO DAILY 90 Days Qty: 90 3RF albuterol sulfate [Ventolin HFA] 90 mcg/actuation HFA aerosol inhaler 1 inh inhalation QID PRN (Reason: shortness of breath or wheezing) 30 Days Qty: 8 3RF amoxicillin-pot clavulanate 875-125 mg tablet 1 tab PO BID Qty: 14 0RF acetaminophen [Tylenol Extra Strength] 500 mg tablet 500 mg PO Q6H PRN (Reason: fever or pain) Qty: 14 0RF azithromycin 250 mg tablet See Rx Instructions .ROUTE .COMPLEX Qty: 6 0RF Rx Instructions: For 250 mg dose pack: take 500 mg today (day 1), then 250 mg for 4 days (days 2-5) prednisone 20 mg tablet 40 mg PO DAILY Qty: 10 0RF benzonatate 100 mg capsule 100 mg PO TID PRN (Reason: cough) Qty: 14 0RF baclofen 10 mg tablet 10 mg PO TID 3 Days Qty: 9 0RF folic acid 1 mg tablet 1 mg PO DAILY 90 Days Qty: 90 1RF (DME) AeroEclipse II Nebulizer Misc See Rx Instructions .Route Qty: 1 0RF Rx Instructions: As directed trazodone 50 mg tablet 75 mg PO BEDTIME PRN (Reason: sleep) 90 Days Qty: 90 1RF Hold Instructions: Dose Change miscellaneous medical supply Misc 1 ea miscellaneous DAILY Qty: 1 0RF Rx Instructions: nebulizer machine with tubing albuterol sulfate 2.5 mg /3 mL (0.083 %) solution for nebulization 2.5 mg inhalation QID PRN (Reason: shortness of breath or wheezing) 30 Days Qty: 75 0RF prednisone 20 mg tablet 40 mg PO DAILY 5 Days Qty: 10 0RF ibuprofen 800 mg tablet 800 mg PO BID PRN (Reason: pain) Qty: 21 0RF Referrals: Shirlene Bauer MD [Primary Care Provider] - 2 days
[2023-08-30] MEDS: Ketorolac Tromethamine 15 MG/ML VIAL 30 MG IVPUSH (09:29)
[2023-08-30] MEDS: Lidocaine 4 % Patch ADH..PATCH 1 PATCH TRANSDERMA (09:30)
--- NOTE | 2023-08-30 09:34 | PC.NURSE ---
patient a&ox3, c/o 05/09 rt hip pain, pt medicated per order, call centeno within reach, family at bedside, will continue to monitor
== END 2023-08-30 10:07 | disposition home or self-care (01) ==
PROVIDERS: Emergency Provider Emergency Medicine Emergency Medical Services; PCP Internal Medicine
DX: M54.16 Radiculopathy, lumbar region (principal)
CPT/HCPCS: 96374; 99283; 99284; J1885

== ENCOUNTER 2023-10-10 15:04 | Outpatient (AMB) | payer MEDICARE, MEDICAID, SELFPAY ==
[2023-10-10 15:19] VITALS: BP 124/64; PULSE 74; RESP 16; O2SAT 98; BMI 26.7
--- NOTE | 2023-10-10 15:19 | MHC.PC.OV ---
Vital Signs 10/10/23 15:19 Height 5 ft 6 in Weight 165 lb 6 oz BMI 26.7 BP 124/64 Blood Pressure Location Lt brachial Position Sitting Respiration 16 Pulse 74 Pulse Source Pulse Oximeter Pulse Oximetry (%) 98 Oxygen Delivery Method Room Air Intake Visit Reasons: F/U asthma Intake Note: The patient is here for a follow-up on asthma. Their primary concern today is possible sciatica pain in the right leg. Molder Shoulder Pad Required: No Accompanied by: Spouse Allergies No Known Allergies Allergy (Verified 10/10/23 15:27) Medication List - Last Reconciled 10/10/23 by Shirlene Gonzales MD acetaminophen (Tylenol Extra Strength) 500 mg PO Q6H PRN albuterol sulfate 2.5 mg (3 mL) inhalation QID PRN 30 days cholecalciferol (vitamin D3) 50 mcg PO DAILY 90 days cyanocobalamin (vitamin B-12) 1,000 mcg PO DAILY 90 days folic acid 1 mg PO DAILY 90 days ibuprofen 800 mg PO BID PRN ketorolac 10 mg PO TID PRN 5 days lidocaine 5% 1 patch topical DAILY PRN miscellaneous medical supply 1 ea miscellaneous DAILY nebulizers (AeroEclipse II Nebulizer) As directed prednisone 40 mg (2 x 20 mg) PO DAILY trazodone 75 mg (1.5 x 50 mg) PO BEDTIME PRN 90 days Ventolin HFA 90 mcg/actuation (albuterol sulfate) 1 inh inhalation QID PRN 30 days NS Tobacco use date assessed: 10/10/23 Fall risk assessment: No Falls in past year Last assessed Fall Risk: 10/10/23 Dental Screening Dental Screen Date: 10/10/23 Did you have a dental visit in the last 12 months?: No Did you have a dental problem in the last 6 months where you did not have access to dental care?: No Was dental information given to patient?: No (dentures) HPI HPI Comments History of Present Illness Details This is a 68-year-old male with B12 deficiency, vitamin-D deficiency and insomnia comes today complaining of low back pain that has been present for about a month and has progressively improving but still present. Radiates to legs but straight leg test was negative bilaterally. No fever, bowel or bladder incontinence. Will be referred to pain management. On vitamin B12 supplements for low vitamin B12 and vitamin-D supplements for low vitamin-D. Still has insomnia with trazodone will be changed to zolpidem. Patient aware that zolpidem can cause sonambulism and addiction. Accompanied by . [facility] Medical History (Updated 10/10/23 @ 17:58 by Shirlene Gonzales MD) Insomnia Physical exam History of alcoholism Asthma Surgical History History of removal of cyst Family History Father Alcoholism Substance use disorder Mother Hypertension Maternal Uncle Stroke Diabetes Hypertension Sister No problems noted. 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 1. Little interest or pleasure in doing things: not at all 2. Feeling down, depressed, or hopeless: not at all 3. Trouble falling or staying asleep, or sleeping too much: not at all 4. Feeling tired or having little energy: not at all 5. Poor appetite or overeating: not at all 6. Feeling bad about yourself - or that you are a failure or have let yourself or your family down: not at all 7. Trouble concentrating on things, such as reading the newspaper or watching television: not at all 8. Moving or speaking so slowly that other people could have noticed. Or the opposite - being so fidgety or restless that you have been moving around a lot more than usual: not at all 9. Thoughts that you would be better off or of hurting yourself in some way: not at all Total score: 0 Depression Screening Interpretation: Negative Depression Screening Done: Yes 83202 - PHQ-9 Billing: Yes Source: Developed by Drs. Ji Estrella, Anca BJake Goodman and colleagues, with an educational yenny from [employer]. Thrive Questionnaire Date Thrive assessed: 10/10/23 I am a: Patient What is your living situation today?: I have a steady place to live Within the past 12 months, did the food you bought not last and you didn't have the money to get more?: Never true Within the past 12 months, did you worry whether your food would run out before you got money to buy more?: Never true Do you have trouble paying for medicines?: No Do you have trouble getting transportation to medical appointments?: No Do you have trouble paying your heating and electricity bill?: No Do you have trouble taking care of your child, family member or friend?: No Do you have trouble with day-to-day activities such as bathing, preparing meals, shopping, managing finances, etc.?: No Are you currently unemployed and looking for a job?: No Are you interested in more education?: No Please select the resources that you would like help with: None Currently or been in a relationship where the following occur: no concerns reported THRIVE Score: 0 AUDIT C Alcohol Use Questionnaire (AUDIT-C) 1. How often do you have a drink containing alcohol?: Never 3. How often do you have six or more drinks on one occasion?: Never Total Score: 0 AMRIT-7 AMB Questionnaire AMRIT-7 Date AMRIT - 7 assessed: 10/10/23 Feeling nervous, anxious, or on edge: 0 = Not at all Not being able to stop or control worryin = Not at all Worrying too much about different things: 0 = Not at all Trouble relaxin = Not at all Being so restless that it is hard to sit still: 0 = Not at all Becoming easily annoyed or irritable: 0 = Not at all Feeling afraid as if something awful might happen: 0 = Not at all Total AMRIT-7 score (0-4 normal; 5-9 mild; 10-14 moderate; 15-21 severe): 0 Source: Developed by Drs. Ji Estrella, Jake Robledo and colleagues, with an educational yenny from [employer]. AMRIT-7 Assessment Billing AMRIT-7 Assessment Tool: AMRIT-7 Assessment 61810 ACT Questionnaire In the past 4 weeks, how much of the time did your asthma keep you from getting as much done at work, school or at home?: None of the time During the past 4 weeks, how often have you had shortness of breath?: Not at all During the past 4 weeks, how often did your asthma symptoms wake you up at night or earlier than usual in the morning?: Not at all During the past 4 weeks, how often have you had to use your rescue inhaler or nebulizer medication?: Not at all How would you rate your asthma control during the past 4 weeks?: Completely controlled ACT Interpretation: Negative Score: 25 Review of Systems Const All systems reviewed & are unremarkable except as noted in HPI and below Eyes Reports no additional complaints, Denies change in vision and Denies other visual disturbances Card Denies chest pain at rest, Denies chest pain with activity, Denies edema, Denies irregular heart rhythm, Denies claudication, Denies dyspnea, Denies dyspnea on exertion, Denies orthopnea, Denies paroxysmal nocturnal dyspnea and Denies slow heart rate Resp Denies cough, Denies dyspnea and Denies dyspnea on exertion GI Denies abdominal pain, Denies change in bowel habits, Denies excessive flatus, Denies nausea and Denies vomiting Denies urinary hesitancy, Denies urinary incontinence and Denies urinary urgency Musc Denies abnormal gait, Denies atrophy, Denies deformity and Denies limited range of motion Skin/Breast Denies bleeding lesions, Denies changing lesions and Denies rash Neuro Denies abnormal gait, Denies behavioral changes and Denies lack of coordination Psych Denies behavioral changes Physical exam (Primary Care) Vital Signs: Last Vital Signs Pulse 74 10/10/23 15:19 Resp 16 10/10/23 15:19 BP 124/64 10/10/23 15:19 Pulse Ox 98 10/10/23 15:19 Oxygen Delivery Method Room Air 10/10/23 15:19 BMI result Body Mass Index 26.7 Tobacco/Smoking Status: Tobacco use Status Tobacco use date assessed 10/10/23 10/10/23 15:31 Patient Tobacco Use Status Former Tobacco user 10/10/23 15:23 e-Cigarette/Vaping Use Never Used 10/10/23 15:23 PHQ-9: PHQ-9 Score PHQ-9: Total score 0 10/10/23 15:44 Depression Screening Interpretation: Negative Thrive Assessment: Date of Thrive Assessment Date Thrive assessed 10/10/23 10/10/23 15:31 Currently or been in a relationship where the following occur: no concerns reported Eyes General: appearance normal, both eyes and all related structures Eyelids: Yes eyelids normal Conjunctivae: conjunctivae normal Neck Neck: Yes normal visual inspection and Yes supple Resp Effort & Inspection: normal respiratory effort Auscultation: clear to auscultation bilaterally Cardio Jugular venous distension: no JVD Rate: regular rate Rhythm: regular rhythm Heart sounds: S1 normal heart sound present and S2 normal heart sound present Extrem General: Yes full ROM Assessment and Plan Assessment & Plan (1) Lumbar radiculopathy: Code(s): M54.16 - Radiculopathy, lumbar region Plan: Referred to pain management. (2) Insomnia: Code(s): G47.00 - Insomnia, unspecified Plan: Discontinue trazodone. Start zolpidem. (3) Vitamin B12 deficiency: Code(s): E53.8 - Deficiency of other specified B group vitamins Plan: Continue vitamin B12 supplements. (4) Vitamin D deficiency: Code(s): E55.9 - Vitamin D deficiency, unspecified Plan: Continue vitamin-D supplements. Orders: Orders Lipid Panel Today E78.5 - Hyperlipidemia, unspecified Vitamin D 25-OH Total Today E55.9 - Vitamin D deficiency, unspecified Vitamin B12 and Folate Today E53.8 - Deficiency of other specified B group vitamins Comprehensive [place]. Panel Fast Today M17.11 - Unilateral primary osteoarthritis, right knee Referrals Pain Management Referral M54.16 - Radiculopathy, lumbar region Medications: New zolpidem 5 mg PO BEDTIME 30 days PRN 30 tabs 0RF sleep Refilled cyanocobalamin (vitamin B-12) 1,000 mcg PO DAILY 90 days 90 caps 3RF E53.8 - Deficiency of other specified B group vitamins cholecalciferol (vitamin D3) 50 mcg PO DAILY 90 days 90 caps 2RF E55.9 - Vitamin D deficiency, unspecified folic acid 1 mg PO DAILY 90 days 90 tabs 1RF Discontinued prednisone Discontinued Reason: No Longer Medically Relevant 40 mg (2 x 20 mg) PO DAILY 10 tabs 0RF trazodone Discontinued Reason: No Longer Medically Relevant 75 mg (1.5 x 50 mg) PO BEDTIME 90 days PRN 90 tabs 1RF sleep G47.00 - Insomnia, unspecified Coding Level of Care Code Est Pt Level 4 (92520) Diagnoses Lumbar radiculopathy M54.16 Insomnia G47.00 Vitamin B12 deficiency E53.8 Vitamin D deficiency E55.9 Additional Codes AMRIT-7 Assessment Billing - AMRIT-7 Assessment Tool: AMRIT-7 Assessment 07572 ([id number]) Time Spent (min) 24
== END 2023-10-10 15:48 | disposition home or self-care (01) ==
PROVIDERS: PCP Internal Medicine; Visit Provider Internal Medicine
DX: M54.16 Radiculopathy, lumbar region (principal); G47.00 Insomnia, unspecified; E53.8 Deficiency of other specified B group vitamins; E55.9 Vitamin D deficiency, unspecified
CPT/HCPCS: 99214

== ENCOUNTER 2023-10-24 08:45 | Outpatient (REF) | payer MEDICARE, MEDICAID, SELFPAY ==
[2023-10-24 09:57] LABS: Alanine Aminotransferase 33 U/L (0-40); Albumin Level 4.2 g/dL (3.5-5.0); Alkaline Phosphatase 107 U/L (39-117); Anion Gap 9 (12-20); Aspartate Amino Transferase 31 U/L (5-37); Bilirubin Total 0.3 mg/dL (0.0-1.0); Blood Urea Nitrogen 15 mg/dL (9-16); Calcium 9.3 mg/dL (8.4-10.2); Carbon Dioxide 31 mmol/L (22-29); Chloride 106 mmol/L (96-108); Cholesterol 146 mg/dL (<200); Estimated Glomerular Filt Rate > 60; Glucose Fasting 95 mg/dL (60-99); HDL Cholesterol 37 mg/dL (>40); LDL Cholesterol Calculated 94 mg/dL (<100); Potassium 4.3 mmol/L (3.3-5.1); Sodium 142 mmol/L (135-145); Triglycerides 78 mg/dL (<150)
[2023-10-24 10:04] LABS: Vitamin D 25-OH Total 30.5 ng/mL (>30)
[2023-10-24 11:50] LABS: Folate 12.3 ng/mL (> or = 4.0); Vitamin B12 267 pg/mL (200-900)
[2023-10-27 07:28] LABS: TS Negative Control Passed; TS Panel A 0; TS Panel B 0; TS Positive Control Passed; TSpotTB Negative (Negative)
== END 2023-10-24 08:46 | disposition home or self-care (01) ==
LOC: HO.LAB 08:45
PROVIDERS: PCP Internal Medicine; Visit Provider Internal Medicine
DX: E78.5 Hyperlipidemia, unspecified (principal); E55.9 Vitamin D deficiency, unspecified; E53.8 Deficiency of other specified B group vitamins; Z11.1 Encounter for screening for respiratory tuberculosis; M17.11 Unilateral primary osteoarthritis, right knee
CPT/HCPCS: 36415; 80053; 80061; 82306; 82607; 82746; 86481

== ENCOUNTER 2023-10-26 10:50 | Outpatient (AMB) | payer MEDICARE, MEDICAID, SELFPAY ==
--- NOTE | 2023-10-26 11:03 | MHC.OFFVIS ---
Intake Vital Signs 10/26/23 11:08 Height 5 ft 6 in Weight 160 lb BMI 25.8 BP 148/78 H Blood Pressure Location Rt brachial Position Sitting Pulse 70 Pulse Source Pulse Oximeter Pulse Oximetry (%) 98 Oxygen Delivery Method Room Air Intake Visit Reasons: LUMBAR RADICULOPATHY Intake Note: Pain today 5/10 Sugar Sampler Required: Yes Sugar Sampler Language: Manager Activities Name: Zarina #[id number] Accompanied by: Self / Same As Patient Allergies No Known Allergies Allergy (Verified 10/26/23 11:10) HPI HPI Comments History of Present Illness Details Ganesh is very pleasant 68-year-old male who presented back to the office today for evaluation and management of his right lower back pain Patient reports his pain started approximately 2 months ago. Denies any inciting injury. Pain over right PSIS radiating down into the thigh, rated today as 5/10. Worse with sitting, standing and lying unaffected side. Denies numbness, tingling or weakness of the right lower extremity. Patient has been taking Tylenol with minimal improvement. Denies any recent imaging. Denies PT, chiropractor, acupuncture, massage or previous attempts at injections. In terms of muscle damage condition is described as burning, aching, cramping, squeezing Pain is negatively impact patients enjoyment of life, general activity, sleep and walking. Denies current use of alcohol, tobacco or illicit substances. Denies use of anticoagulants. Denies implantable devices Prior visit with Rachael CORONADO dated 10/15/21: Ganesh is pleasant 66 year old kuwaiti speaking male accompanied by his . He presents with complaints of right knee pain which has been present since March 2021. He denies any inciting events but attributes it to COVID-19 as his pain developed a week after jonn the virus. He reports the pain is mostly is the medial and anterior aspect of the knee with decreased range of motion. He denies any radiating pain or paresthesias. He notes intermittent edema and occasionally increased warmth compared to the left knee.A few times per day he feels as though his knee is going to give out and is fearful of falling. He denies any evaluation with orthopedics. He also reports small red bumps of the right knee which he attributes to one of the topicals he has been using. He denies any of these lesions anywhere else. He reports pain onset was gradual, gradual constant and rates the pain a 7-8/10. He states the pain is interfering with sleep, activities of daily living and he cannot function normally. The patient reports the pain in terms of tissue damage as throbbing, sharp, crushing, tugging, heavy as well as fearful, radiating and tight. His pain is exacerbated by any activity especially any which require a twisting motion. He has tried multiple topicals and reports no relief with any. He can not recall the name of the topicals but he does not believe he has tried voltaren. He has also been using tylenol arthritis, elevating the extremity and using ice with partial relief. He did have a short prescription of ibuprofen that was intended for back pain, but did note some relief of his knee pain and is requesting another prescription of this. He denies any physical therapy, chiropractic manipulation, massage or acupuncture. Denies any previous knee injections or surgery. He had imaging of the knee which revealed degenerative changes. This report is dictated below. [facility] Medical History Insomnia Physical exam History of alcoholism Asthma Surgical History History of removal of cyst Family History Father Alcoholism Substance use disorder Mother Hypertension Maternal Uncle Stroke Diabetes Hypertension Sister No problems noted. 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 Answers questions appropriately. Fully engaged in examination. Skin: warm, dry, intact HEENT: Normocephalic. Hearing intact. Cardiac: External chest normal in appearance. Respiratory: No cough, audible wheezing or stridor. Abdomen: without gross distension. MS: No obvious swelling or deformities. Able to stand on bilateral tiptoes and bilateral heels.? Able to transition from sit to stand unassisted. Ambulates with bilaterally normal heel strike and toe off bilateral lower extremity strength 5/5 DTR intact SLR negative bilaterally Tender to palpation over right PSIS [place] positive on the right Thigh thrust positive on the right SI compression positive on the right Neurological: Oriented to person, place, time and situation. Thought process intact. No gait abnormalities appreciated. Psychiatric: Appropriate mood and affect. Good judgment and insight. Assessment & Plan Assessment & Plan (1) Sacroiliac joint dysfunction of right side: Code(s): M53.3 - Sacrococcygeal disorders, not elsewhere classified Plan Patient presented to the office today for evaluation and management of his right lower back pain. History, physical exam and provocative testing consistent with right sacroiliac joint dysfunction X-ray ordered for further evaluation Naproxen 375 mg p.o. b.i.d., patient advised on cautions for use. Take with food. Do not take with any other nonsteroidal anti-inflammatory medications Order placed for PT eval and treat Discussed options for treatment including diagnostic interventional testing, steroid injections, peripheral nerve stimulation with Sprint, RFA and more permanent neuromodulation. Patient will follow-up after completing at least 6 sessions of physical therapy, if pain persists we will plan for diagnostic right sacroiliac joint injection with local anesthetic. All questions and concerns have been answered and patient agrees with the plan. Follow up after PT, sooner if needed. Orders: Orders XR sacroiliac joint 1-2V Today M53.3 - Sacrococcygeal disorders, not elsewhere classified PT Evaluation and Treatment Today M53.3 - Sacrococcygeal disorders, not elsewhere classified Medications: New naproxen (EC-Naprosyn) 375 mg PO BID PRN 30 tabs 1RF pain Discontinued ketorolac Discontinued Reason: Patient Completed Course 10 mg PO TID 5 days PRN 15 tabs 0RF pain ibuprofen Discontinued Reason: Patient Completed Course 800 mg PO BID PRN 21 tabs 0RF pain M25.561 - Pain in right knee Coding Level of Care Code Est Pt Level 4 (06188) Diagnoses Sacroiliac joint dysfunction of right side M53.3
[2023-10-26 11:08] VITALS: BP 148/78; PULSE 70; O2SAT 98; BMI 25.8
== END 2023-10-26 11:29 | disposition home or self-care (01) ==
PROVIDERS: PCP Internal Medicine; Referring Provider Internal Medicine; Visit Provider Registered Nurse Emergency
DX: M53.3 Sacrococcygeal disorders, not elsewhere classified (principal)
CPT/HCPCS: 99214

== ENCOUNTER → 2023-10-26 10:50 | Outpatient (BNVA) | payer MEDICARE, MEDICAID, SELFPAY | PROVIDERS: PCP Internal Medicine; Referring Provider Internal Medicine; Visit Provider Registered Nurse Emergency | DX: M53.3 Sacrococcygeal disorders, not elsewhere classified (principal) | CPT/HCPCS: 99212 ==

== ENCOUNTER 2023-10-31 10:16 | Outpatient (REF) | payer MEDICARE, MEDICAID, SELFPAY ==
--- NOTE | ~2023-10-31 | XR_ITS ---
EXAMINATION: XR SACROILIAC JOINTS CLINICAL INFORMATION: Sacrococcygeal disorders. COMPARISON: Lumbar spine 12/19/2018, MRI abdomen 02/20/2028. TECHNIQUE: 5 views of the sacroiliac joints FINDINGS: Bones and soft tissues are unremarkable. No fracture. Alignment is anatomic. Sacroiliac joint spaces are well-maintained without erosions or surrounding sclerosis. XR/XR sacroiliac joint min 3V IMPRESSION: Unremarkable examination.
== END 2023-10-31 10:17 | disposition home or self-care (01) ==
LOC: HO.XRAY 10:16
PROVIDERS: PCP Internal Medicine; Visit Provider Registered Nurse Emergency
DX: M53.3 Sacrococcygeal disorders, not elsewhere classified (principal)
CPT/HCPCS: 72202

== ENCOUNTER 2024-01-17 08:40 | Outpatient (AMB) | payer MEDICARE, MEDICAID, SELFPAY ==
[2024-01-17 08:47] VITALS: BP 118/80; PULSE 64; O2SAT 98; BMI 26.1
--- NOTE | 2024-01-17 08:47 | A.OFFPC_ITS ---
Vital Signs 01/17/24 08:47 Height 5 ft 6 in Weight 162 lb BMI 26.1 BP 118/80 Blood Pressure Location Lt brachial Position Sitting Pulse 64 Pulse Source Pulse Oximeter Pulse Oximetry (%) 98 Oxygen Delivery Method Room Air Intake Visit Reasons: pe Intake Note: Patient here for a physical exam Rn Labor And Delivery Required: No Accompanied by: Spouse Allergies No Known Allergies Allergy (Verified 01/17/24 08:48) Tobacco use date assessed: 10/10/23 Fall risk assessment: No Falls in past year Last assessed Fall Risk: 01/17/24 Dental Screening Dental Screen Date: 10/10/23 HPI HPI Comments History of Present Illness Details This is a 68-year-old male that comes accompanied by for his physical exam. Last colonoscopy was 2018 showing tubular adenoma and will be refer through open access to another colonoscopy. No chest pain or shortness on breath. [facility] Medical History (Updated 10/26/23 @ 11:29 by Aidee Velazco, CNC MANUFACTURING ENGINEER, CUTTING MACHINE TENDER) Insomnia Physical exam History of alcoholism Asthma Surgical History History of removal of cyst Family History Father Alcoholism Substance use disorder Mother Hypertension Maternal Uncle Stroke Diabetes Hypertension Sister No problems noted. 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 Cognitive needs: No Hearing needs: No Vision needs: No Questionnaire Thrive Questionnaire Date Thrive assessed: 10/10/23 AMRIT-7 AMB Questionnaire AMRIT-7 Date AMRIT - 7 assessed: 01/17/24 Feeling nervous, anxious, or on edge: 1 = Several days Not being able to stop or control worryin = Not at all Worrying too much about different things: 1 = Several days Trouble relaxin = Several days Being so restless that it is hard to sit still: 1 = Several days Becoming easily annoyed or irritable: 1 = Several days Feeling afraid as if something awful might happen: 1 = Several days Total AMRIT-7 score (0-4 normal; 5-9 mild; 10-14 moderate; 15-21 severe): 6 Source: Developed by Drs. Ji Estrella, Anca Solorzano, Jake Sanabria and colleagues, with an educational yenny from [employer]. Review of Systems Const All systems reviewed & are unremarkable except as noted in HPI and below Eyes Reports no additional complaints, Denies change in vision and Denies other visual disturbances Card Denies chest pain at rest, Denies chest pain with activity, Denies edema, Denies irregular heart rhythm, Denies claudication, Denies dyspnea, Denies dyspnea on exertion, Denies orthopnea, Denies paroxysmal nocturnal dyspnea and Denies slow heart rate Resp Denies cough, Denies dyspnea and Denies dyspnea on exertion Physical exam (Primary Care) Vital Signs: Last Vital Signs Pulse 64 01/17/24 08:47 BP 118/80 01/17/24 08:47 Pulse Ox 98 01/17/24 08:47 Oxygen Delivery Method Room Air 01/17/24 08:47 BMI result Body Mass Index 26.1 Tobacco/Smoking Status: Tobacco use Status Tobacco use date assessed 10/10/23 01/17/24 08:49 Patient Tobacco Use Status Former Tobacco user 01/17/24 08:49 e-Cigarette/Vaping Use Never Used 01/17/24 08:49 Thrive Assessment: Date of Thrive Assessment Date Thrive assessed 10/10/23 01/17/24 08:49 Const Orientation/consciousness: patient oriented x3 HENMT Head: Yes normal to inspection, Yes normocephalic and Yes atraumatic Ears: external ears normal Eyes General: appearance normal, both eyes and all related structures Eyelids: Yes eyelids normal Conjunctivae: conjunctivae normal Neck Neck: Yes normal visual inspection and Yes supple Resp Effort & Inspection: normal respiratory effort Auscultation: clear to auscultation bilaterally Cardio Jugular venous distension: no JVD Rate: regular rate Rhythm: regular rhythm Heart sounds: S1 normal heart sound present and S2 normal heart sound present GI Inspection: Yes normal to inspection Palpation (GI): Soft to palpation and nontender Auscultation: normal bowel sounds Skin General skin exam: no rashes or lesions noted Neuro General: patient oriented x3 and no focal motor deficits Extrem General: Yes full ROM Psych Appearance: grossly normal Assessment and Plan Assessment & Plan (1) Physical exam: Code(s): Z00.00 - Encounter for general adult medical examination without abnormal findings Plan: Repeat in a year. Orders: Orders Vitamin D 25-OH Total Today E55.9 - Vitamin D deficiency, unspecified Vitamin B12 and Folate Today E53.8 - Deficiency of other specified B group vitamins IRON PROFILE Today D64.9 - Anemia, unspecified Complete Blood Count Auto Diff Today D64.9 - Anemia, unspecified Lipid Panel Today E78.5 - Hyperlipidemia, unspecified Comprehensive [place]. Panel Fast Today Z00.00 - Encounter for general adult medical examination without abnormal findings Uric Acid Today M10.9 - Gout, unspecified Referrals Open Access Screening Colonoscopy Referral Z12.11 - Encounter for screening for malignant neoplasm of colon Coding Level of Care Code Est Pt Prev Care >65y(85493) Diagnoses Physical exam Z00.00 Time Spent (min) 30
== END 2024-01-17 09:21 | disposition home or self-care (01) ==
LOC: HO.HMGH 08:40
PROVIDERS: PCP Internal Medicine; Visit Provider Internal Medicine
DX: Z00.00 Encounter for general adult medical examination without abnormal findings (principal); Z86.010 Personal history of colon polyps; F10.21 Alcohol dependence, in remission
CPT/HCPCS: 99397

== ENCOUNTER 2024-01-29 09:19 | Outpatient (REF) | payer MEDICARE, MEDICAID, SELFPAY ==
[2024-01-29 09:33] LABS: MANUAL DIFF FLAG NO
[2024-01-29 10:32] LABS: Basophils Percent Auto 0.3 % (0-2); Eosinophils Absolute Auto 0.1 X10*3/uL (0.0-0.4); Eosinophils Percent Auto 1.3 % (0-4); Hematocrit 41.4 % (42.0-52.0); Hemoglobin 14.2 g/dl (14.0-18.0); Imm Gran Abs Auto 0.03 X10*3/uL (0.00-0.03); Imm Gran Pct Auto 0.5 % (0.0-0.4); Lymphocytes Absolute Auto 2.7 X10*3/uL (1.2-4.9); Lymphocytes Percent Auto 43.3 % (20-40); Mean Corpuscular HGB Conc 34.3 g/dl (31.0-36.0); Mean Corpuscular Hemoglobin 31.3 pg (27.0-33.0); Mean Corpuscular Volume 91.4 fL (80.0-98.0); Mean Platelet Volume 9.5 fL (9.4-12.4); Monocytes Absolute Auto 0.5 X10*3/uL (0.1-1.2); Monocytes Percent Auto 7.2 % (2-11); Neutrophils Percent Auto 47.4 % (45-73); Platelet Count 254 X10*3/uL (160-400); Red Blood Count 4.53 X10*6/uL (4.60-5.80); Red Cell Distribution Width 12.9 % (11.0-16.0); White Blood Count 6.3 X10*3/uL (4.8-10.8)
[2024-01-29 11:02] LABS: Alanine Aminotransferase 32 U/L (0-40); Albumin Level 4.2 g/dL (3.5-5.0); Alkaline Phosphatase 114 U/L (39-117); Anion Gap 12 (12-20); Aspartate Amino Transferase 29 U/L (5-37); Bilirubin Total 0.3 mg/dL (0.0-1.0); Blood Urea Nitrogen 13 mg/dL (9-16); Calcium 9.6 mg/dL (8.4-10.2); Carbon Dioxide 29 mmol/L (22-29); Chloride 104 mmol/L (96-108); Cholesterol 155 mg/dL (<200); Estimated Glomerular Filt Rate > 60; Glucose Fasting 94 mg/dL (60-99); HDL Cholesterol 43 mg/dL (>40); Iron 116 mcg/dL (45-160); LDL Cholesterol Calculated 99 mg/dL (<100); Percent Iron Saturation 46 % (15-50); Potassium 4.3 mmol/L (3.3-5.1); Sodium 141 mmol/L (135-145); Total Iron Binding Capacity 250 mcg/dL (228-428); Total Protein 7.1 g/dL (6.5-8.0); Triglycerides 65 mg/dL (<150); Unsaturated Iron Binding 134 ug/dL
[2024-01-29 11:22] LABS: Vitamin D 25-OH Total 36.6 ng/mL (>30)
[2024-01-29 11:58] LABS: Uric Acid 6.7 mg/dL (3.4-7.0)
[2024-01-29 12:01] LABS: Vitamin B12 288 pg/mL (200-900)
== END 2024-01-29 09:20 | disposition home or self-care (01) ==
LOC: HO.LAB 09:19
PROVIDERS: PCP Internal Medicine; Visit Provider Internal Medicine
DX: Z00.00 Encounter for general adult medical examination without abnormal findings (principal); E55.9 Vitamin D deficiency, unspecified; E53.8 Deficiency of other specified B group vitamins; E78.5 Hyperlipidemia, unspecified; M10.9 Gout, unspecified; D64.9 Anemia, unspecified
CPT/HCPCS: 36415; 80053; 80061; 82306; 82607; 82746; 83540; 84550; 85025

== ENCOUNTER 2024-06-05 08:45 | Outpatient (AMB) | payer MEDICARE, MEDICAID, SELFPAY ==
--- NOTE | 2024-06-05 08:47 | A.OFFPC_ITS ---
Vital Signs 06/05/24 08:48 Height 5 ft 6 in Weight 169 lb BMI 27.3 BP 126/80 Blood Pressure Location Lt brachial Position Sitting Intake Visit Reasons: 4mth f/u Intake Note: Patient here for a 4 month follow up Distribution Dispatcher Required: No Accompanied by: Self / Same As Patient Allergies No Known Allergies Allergy (Verified 06/05/24 09:03) Medication List - Last Reconciled 06/05/24 by Shirlene Gonzales MD acetaminophen (Tylenol Extra Strength) 500 mg PO Q6H PRN albuterol sulfate 2.5 mg (3 mL) inhalation QID PRN 30 days cholecalciferol (vitamin D3) 50 mcg PO DAILY 90 days cyanocobalamin (vitamin B-12) 1,000 mcg PO DAILY 90 days cyanocobalamin (vitamin B-12) 1,000 mcg PO DAILY folic acid 1 mg PO DAILY 90 days lidocaine 5% 1 patch topical DAILY PRN miscellaneous medical supply 1 ea miscellaneous DAILY naproxen (EC-Naprosyn) 375 mg PO BID PRN nebulizers (AeroEclipse II Nebulizer) As directed Ventolin HFA 90 mcg/actuation (albuterol sulfate) 1 inh inhalation QID PRN 30 days NS zolpidem 5 mg PO BEDTIME PRN 30 days Tobacco use date assessed: 10/10/23 Fall risk assessment: No Falls in past year Last assessed Fall Risk: 06/05/24 Dental Screening Dental Screen Date: 06/05/24 Did you have a dental visit in the last 12 months?: No Did you have a dental problem in the last 6 months where you did not have access to dental care?: No Was dental information given to patient?: Patient has dentist HPI HPI Comments History of Present Illness Details This is a 69-year-old male with vitamin B12 deficiency, insomnia and low vitamin-D that comes accompanied by for follow-up on his conditions. Insomnia still present with trazodone 50 mg and I will increase it to 100 mg. Compliant with vitamin B12 supplements and vitamin-D supplements and I will order levels of both vitamins to check on it. Complains of occasional chest wall pain that happens at rest in the left side of the chest and resolve on its own in a few minutes. I will order EKG. [facility] Medical History (Updated 06/05/24 @ 12:08 by Shirlene Gonzales MD) Insomnia Physical exam History of alcoholism Asthma Surgical History History of removal of cyst Family History Father Alcoholism Substance use disorder Mother Hypertension Maternal Uncle Stroke Diabetes Hypertension Sister No problems noted. 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 How often do you have a drink containing alcohol?: Never Total Score: 0 AMRIT-7 AMB Questionnaire AMRIT-7 Date AMRIT - 7 assessed: 01/17/24 Source: Developed by Drs. Ji Estrella, Anca Solorzano, Jake Sanabria and colleagues, with an educational yenny from [employer]. Review of Systems Const All systems reviewed & are unremarkable except as noted in HPI and below Card Reports chest pain at rest, Denies chest pain with activity, Denies edema, Denies irregular heart rhythm, Denies claudication, Denies dyspnea, Denies dyspnea on exertion, Denies orthopnea, Denies paroxysmal nocturnal dyspnea and Denies slow heart rate Resp Denies cough, Denies dyspnea and Denies dyspnea on exertion Physical exam (Primary Care) Vital Signs: Last Vital Signs BP 126/80 06/05/24 08:48 BMI result Body Mass Index 27.3 BMI Assessment/Plan discussion: High BMI High, discussed plan: lifestyle, weight reduction, dietary and physical activity Tobacco/Smoking Status: Tobacco use Status Tobacco use date assessed 10/10/23 06/05/24 08:54 Patient Tobacco Use Status Former Tobacco user 06/05/24 09:06 e-Cigarette/Vaping Use Never Used 06/05/24 09:06 Thrive Assessment: Date of Thrive Assessment Date Thrive assessed 10/10/23 06/05/24 08:54 Resp Effort & Inspection: normal respiratory effort Auscultation: clear to auscultation bilaterally Cardio Jugular venous distension: no JVD Rate: regular rate Rhythm: regular rhythm Heart sounds: S1 normal heart sound present and S2 normal heart sound present Extrem General: Yes full ROM Coding Level of Care Code Est Pt Level 4 (98904) Complex EM visit Add On G2211 Diagnoses Primary insomnia F51.01 Insomnia type: primary Vitamin D deficiency E55.9 Vitamin B12 deficiency E53.8 Chest pain R07.9 Time Spent (min) 23 Assessment & Plan Assessment & Plan (1) Insomnia: Code(s): G47.00 - Insomnia, unspecified Category: Medical Qualifiers: Insomnia type: primary Qualified Code(s): F51.01 - Primary insomnia Plan: Increase trazodone to 50 mg. (2) Vitamin D deficiency: Code(s): E55.9 - Vitamin D deficiency, unspecified Category: Medical Plan: Vitamin-D levels ordered. Continue vitamin-D supplements. (3) Vitamin B12 deficiency: Code(s): E53.8 - Deficiency of other specified B group vitamins Category: Medical Plan: Vitamin B12 levels ordered. Continue vitamin B12 supplements. (4) Chest pain: Code(s): R07.9 - Chest pain, unspecified Category: Medical Plan: EKG ordered. Orders: Orders ECG 12 lead EKG Today R07.9 - Chest pain, unspecified Vitamin D 25-OH Total Today E55.9 - Vitamin D deficiency, unspecified Vitamin B12 and Folate Today E53.8 - Deficiency of other specified B group vitamins Vitamin B1 Today E51.9 - Thiamine deficiency, unspecified Medications: New trazodone 100 mg PO BEDTIME PRN 90 tabs 0RF sleep 90 days Discontinued zolpidem Discontinued Reason: Patient Completed Course 5 mg PO BEDTIME 30 days PRN 30 tabs 0RF sleep
[2024-06-05 08:48] VITALS: BP 126/80; BMI 27.3
== END 2024-06-05 09:11 | disposition home or self-care (01) ==
LOC: HO.HMCH 08:46
PROVIDERS: PCP Internal Medicine; Visit Provider Internal Medicine
DX: F51.01 Primary insomnia (principal); E55.9 Vitamin D deficiency, unspecified; E53.8 Deficiency of other specified B group vitamins; R07.9 Chest pain, unspecified

== ENCOUNTER 2024-06-05 08:45 | Outpatient (REF) | payer MEDICARE, MEDICAID, SELFPAY ==
--- NOTE | 2024-06-05 09:50 | ECG_ITS ---
Test Reason : CP Blood Pressure : / mmHG Vent. Rate : 066 BPM Atrial Rate : 066 BPM P-R Int : 264 ms QRS Dur : 076 ms QT Int : 350 ms P-R-T Axes : 058 066 051 degrees QTc Int : 366 ms Sinus rhythm with 1st degree A-V block Nonspecific T wave abnormality Abnormal ECG When compared with ECG of 11-JUL-2023 11:34, AL interval has increased Vent. rate has decreased BY 35 BPM Referred By: Shirlene Gonzales Electronically Signed By:PEG SILVA MD
[2024-06-05 12:08] LABS: Vitamin D 25-OH Total 30.7 ng/mL (>30)
[2024-06-05 12:19] LABS: Folate 14.3 ng/mL (> or = 4.0); Vitamin B12 < 148 pg/mL (200-900)
[2024-06-10 22:42] LABS: Vitamin B1 12 nmol/L (8-30)
== END 2024-06-05 08:46 | disposition home or self-care (01) ==
LOC: HO.LAB 08:45
PROVIDERS: PCP Internal Medicine; Visit Provider Internal Medicine
DX: E55.9 Vitamin D deficiency, unspecified (principal); E53.8 Deficiency of other specified B group vitamins; E51.9 Thiamine deficiency, unspecified; R07.9 Chest pain, unspecified; F51.01 Primary insomnia; Z79.899 Other long term (current) drug therapy
CPT/HCPCS: 36415; 82306; 82607; 82746; 84425; 93005; 99212

== ENCOUNTER → 2024-06-05 09:50 | Outpatient (BNV) | payer MEDICARE, MEDICAID, SELFPAY | PROVIDERS: PCP Internal Medicine; Visit Provider Internal Medicine Cardiovascular Disease | DX: R94.31 Abnormal electrocardiogram [ECG] [EKG] (principal) | CPT/HCPCS: 93010 ==

== ENCOUNTER 2024-06-10 10:33 | Outpatient (AMB) | payer MEDICARE, MEDICAID, SELFPAY ==
--- NOTE | 2024-06-10 10:52 | AM.OFFVISNUR ---
Intake Visit Reasons: B-12 Allergies No Known Allergies Allergy (Verified 06/05/24 09:03) Office Meds cyanocobalamin (vitamin B-12) 1,000 mcg/mL injection solution Performing Provider: Shirlene Gonzales MD Performing [facility] Administered by: Julissa Duarte RN on 06/10/24 10:53 Dose Route Admin Location Dispensed Lot Number Expiration Date [facility] Ornamental Iron Worker 1,000 mcg IM left deltoid 1 mL [id number] 06/29/25 22442-222-94 [facility] [place] Assessment & Plan Assessment & Plan Orders: Orders AMB Vitamin B12 Injection Patient Supplied Today E53.8 - Deficiency of other specified B group vitamins Medications: New cyanocobalamin (vitamin B-12) 1,000 mcg IM ONCE 1 mL 0RF E53.8 - Deficiency of other specified B group vitamins
== END 2024-06-10 10:56 | disposition home or self-care (01) ==
PROVIDERS: PCP Internal Medicine; Visit Provider Internal Medicine
DX: E53.8 Deficiency of other specified B group vitamins (principal)
CPT/HCPCS: J3420

== ENCOUNTER → 2024-06-10 10:33 | Outpatient (BNVA) | payer MEDICARE, MEDICAID, SELFPAY | PROVIDERS: PCP Internal Medicine; Visit Provider Internal Medicine | DX: E53.8 Deficiency of other specified B group vitamins (principal) | CPT/HCPCS: 96372 ==

== ENCOUNTER 2024-07-08 09:05 | Outpatient (AMB) | payer MEDICARE, MEDICAID, SELFPAY ==
--- NOTE | 2024-07-08 09:16 | AM.OFFVISNUR ---
Intake Visit Reasons: B12 Shot Allergies No Known Allergies Allergy (Verified 06/05/24 09:03) Office Meds cyanocobalamin (vitamin B-12) 1,000 mcg/mL injection solution Performing Provider: Shirlene Gonzales MD [facility] [place] [facility] Administered by: Diana Krishnan LPN on 07/08/24 09:16 Dose Route Admin Location Dispensed Lot Number Expiration Date [facility] Motorcycle Mechanic 1,000 mcg IM left deltoid 1 mL [id number] 06/29/25 13484-064-32 [facility] Assessment & Plan Assessment & Plan Orders: Orders AMB Vitamin B12 Injection Patient Supplied Today E53.8 - Deficiency of other specified B group vitamins Medications: New cyanocobalamin (vitamin B-12) 1,000 mcg IM ONCE 1 mL 0RF E53.8 - Deficiency of other specified B group vitamins
== END 2024-07-08 09:46 | disposition home or self-care (01) ==
PROVIDERS: PCP Internal Medicine; Visit Provider Internal Medicine
DX: E53.8 Deficiency of other specified B group vitamins (principal)

== ENCOUNTER → 2024-07-08 09:05 | Outpatient (BNVA) | payer MEDICARE, MEDICAID, SELFPAY | PROVIDERS: PCP Internal Medicine; Visit Provider Internal Medicine | DX: E53.8 Deficiency of other specified B group vitamins (principal) | CPT/HCPCS: 96372; J3420 ==

== ENCOUNTER 2024-08-08 09:01 | Outpatient (AMB) | payer MEDICARE, MEDICAID, SELFPAY ==
--- NOTE | 2024-08-08 09:14 | AM.OFFVISNUR ---
Intake Visit Reasons: B12 Shot Allergies No Known Allergies Allergy (Verified 06/05/24 09:03) Office Meds cyanocobalamin (vitamin B-12) 1,000 mcg/mL injection solution Performing Provider: Shirlene Gonzales MD Performing Location[facility] [place] [facility] Administered by: Julissa Duarte RN on 08/08/24 09:14 Dose Route Admin Location Dispensed Lot Number Expiration Date [facility] Pot Fluxer 1,000 mcg IM Left deltoid 1 mL [id number] 06/29/25 42296-196-98 [facility] [place] Assessment & Plan Assessment & Plan Orders: Orders AMB Vitamin B12 Injection Patient Supplied Today E53.8 - Deficiency of other specified B group vitamins Medications: New cyanocobalamin (vitamin B-12) 1,000 mcg IM ONCE 1 mL 0RF E53.8 - Deficiency of other specified B group vitamins
== END 2024-08-08 09:19 | disposition home or self-care (01) ==
PROVIDERS: PCP Internal Medicine; Visit Provider Internal Medicine
DX: E53.8 Deficiency of other specified B group vitamins (principal)

== ENCOUNTER → 2024-08-08 09:01 | Outpatient (BNVA) | payer MEDICARE, MEDICAID, SELFPAY | PROVIDERS: PCP Internal Medicine; Visit Provider Internal Medicine | DX: E53.8 Deficiency of other specified B group vitamins (principal) | CPT/HCPCS: 96372; J3420 ==

== ENCOUNTER 2024-09-09 15:50 | Outpatient (AMB) | payer MEDICARE, MEDICAID, SELFPAY ==
--- NOTE | 2024-09-09 15:59 | AM.OFFVISNUR ---
Intake Visit Reasons: B12 Shot Allergies No Known Allergies Allergy (Verified 06/05/24 09:03) Office Meds cyanocobalamin (vitamin B-12) 1,000 mcg/mL injection solution Performing Provider: Shirlene Gonzales MD Performing Location: [facility] [place] [facility] Administered by: Diana Krishnan LPN on 09/09/24 15:59 Dose Route Admin Location Dispensed Lot Number Expiration Date [facility] Recorder Helper Gravity Prospecting 1,000 mcg IM left deltoid 1 mL [id number] 06/29/25 13359-381-43 [facility] [place] Assessment & Plan Assessment & Plan Orders: Orders AMB Vitamin B12 Injection Patient Supplied Today E53.8 - Deficiency of other specified B group vitamins Medications: New cyanocobalamin (vitamin B-12) 1,000 mcg IM ONCE 1 mL 0RF E53.8 - Deficiency of other specified B group vitamins Coding
== END 2024-09-09 16:35 | disposition home or self-care (01) ==
PROVIDERS: PCP Internal Medicine; Visit Provider Internal Medicine
DX: E53.8 Deficiency of other specified B group vitamins (principal)

== ENCOUNTER → 2024-09-09 15:50 | Outpatient (BNVA) | payer MEDICARE, MEDICAID, SELFPAY | PROVIDERS: PCP Internal Medicine; Visit Provider Internal Medicine | DX: E53.8 Deficiency of other specified B group vitamins (principal) | CPT/HCPCS: 96372; J3420 ==

== ENCOUNTER 2024-09-26 07:56 | Outpatient (AMB) | payer MEDICARE, MEDICAID, SELFPAY ==
[2024-09-26 08:25] VITALS: BP 118/60; PULSE 58; BMI 26.5
--- NOTE | 2024-09-26 08:25 | MHC.OFFVIS ---
Vital Signs 09/26/24 08:25 Height 5 ft 6 in Weight 164 lb 7.437 oz BMI 26.5 BP 118/60 Blood Pressure Location Lt brachial Position Sitting Pulse 58 Pulse Source Pulse Oximeter Intake Visit Reasons: physician president/dr. puga/sissy ecg/ekg Central Service Technician Required: Yes Central Service Technician Services: Central Service Technician Present Central Service Technician Name: Temi [id number] Accompanied by: Spouse Allergies No Known Allergies Allergy (Verified 06/05/24 09:03) Medication List - Last Reconciled 09/26/24 by Gilbert Diaz MD acetaminophen (Tylenol Extra Strength) 500 mg PO Q6H PRN albuterol sulfate 2.5 mg (3 mL) inhalation QID PRN 30 days cholecalciferol (vitamin D3) 50 mcg PO DAILY 90 days cyanocobalamin (vitamin B-12) 1,000 mcg IM Q4W 4 weeks folic acid 1 mg PO DAILY 90 days lidocaine 5% 1 patch topical DAILY PRN miscellaneous medical supply 1 ea miscellaneous DAILY naproxen (EC-Naprosyn) 375 mg PO BID PRN nebulizers (AeroEclipse II Nebulizer) As directed syringe with needle (Korrio Luer Slip Syringe-Needle) As directed trazodone 100 mg PO BEDTIME PRN 90 days Ventolin HFA 90 mcg/actuation (albuterol sulfate) 1 inh inhalation QID PRN 30 days NS HPI Comments Details: Ganesh is here for consultation regarding an abnormal EKG. EKG had shown prolonged PA interval and that was the primary abnormality. Patient himself denies any clear-cut cardiac symptoms like angina or shortness of breath or in fact anything cardiac sounding. He states he feels fine. No prior cardiac history. [facility] Medical History Insomnia Physical exam History of alcoholism Asthma Surgical History History of removal of cyst Family History Father Alcoholism Substance use disorder Mother Hypertension Maternal Uncle Stroke Diabetes Hypertension Sister No problems noted. 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 Cognitive needs: No Hearing needs: No Vision needs: No Review of Systems Const Denies chills, Denies fatigue, Denies fever(s), Denies weight gain and Denies weight loss ENT Denies dizziness Card Denies chest pain, Denies leg edema, Denies lightheadedness, Denies palpitations, Denies dyspnea on exertion, Denies orthopnea and Denies other Resp Denies cough and Denies dyspnea on exertion GI Denies hematochezia and Denies change in stool character Musc Denies abnormal gait, Denies muscle weakness, Denies numbness, Denies radiating pain into limb and Denies tingling Neuro Denies abnormal gait, Denies dizziness, Denies numbness and Denies tingling Endo Denies fatigue and Denies palpitations Physical Exam Vital Signs: Last Vital Signs Pulse 58 09/26/24 08:25 BP 118/60 09/26/24 08:25 BMI result Body Mass Index 26.5 Const General: comfortable and no acute distress Orientation/consciousness: patient oriented x3 HEENT Other: Unremarkable Head: Yes normal to inspection Neck Neck: Yes normal visual inspection Chest Chest palpation & inspection: normal inspection of the chest Resp Auscultation: clear to auscultation bilaterally Cardio Palpation: normal PMI Heart sounds: S1 normal heart sound present, S2 normal heart sound present, no gallops, no murmurs and no rubs GI Palpation (GI): Soft to palpation Back/Spine/Pelvis Other: unremarkable Skin General skin exam: no rashes or lesions noted Neuro General: patient oriented x3 Extrem General: Yes normal to inspection Psych Mental Status: mental status grossly normal Assessment & Plan Assessment & Plan (1) Heart block: Code(s): I45.9 - Conduction disorder, unspecified Category: Medical Plan EKG from 05/2024 with sinus rhythm at 66/Min; PA prolongation to 264 millisecond; normal corrected QT. In the EKG prior to it from 2022, PA interval was 174 milliseconds. In an even earlier EKG, PA interval was 218 milliseconds. Overall, mild conduction disease but otherwise no clear abnormalities. Findings discussed with patient. We will get an echocardiogram for cardiac function assessment and any significant structural findings. Otherwise, mainly reassurance in follow-up yearly for conduction system disease. Discussed with significant other. Discussed using host/hostess restaurant. Orders: Orders CA echo transthoracic complete Today I45.9 - Conduction disorder, unspecified Coding Level of Care Code New Pt Level 3 (69679) Diagnoses Heart block I45.9
== END 2024-09-26 08:47 | disposition home or self-care (01) ==
PROVIDERS: PCP Internal Medicine; Visit Provider Internal Medicine
DX: I45.9 Conduction disorder, unspecified (principal)
CPT/HCPCS: 99203

== ENCOUNTER → 2024-09-26 07:56 | Outpatient (BNVA) | payer MEDICARE, MEDICAID, SELFPAY | PROVIDERS: PCP Internal Medicine; Visit Provider Internal Medicine | DX: I45.9 Conduction disorder, unspecified (principal) | CPT/HCPCS: 99202 ==

== ENCOUNTER 2024-10-07 15:56 | Outpatient (AMB) | payer MEDICARE, MEDICAID, SELFPAY ==
--- NOTE | 2024-10-07 16:06 | AM.OFFVISNUR ---
Intake Visit Reasons: B12 Shot Allergies No Known Allergies Allergy (Verified 06/05/24 09:03) Office Meds cyanocobalamin (vitamin B-12) 1,000 mcg/mL injection solution Performing Provider: Shirlene Gonzales MD [place] [facility] [place] [facility] Administered by: Diana Krishnan LPN on 10/07/24 16:06 Dose Route Admin Location Dispensed Lot Number Expiration Date [facility] Wet Wash Assembler 1,000 mcg IM left deltoid 1 mL [id number] 06/29/25 43707-064-00 [facility] Assessment & Plan Assessment & Plan Orders: Orders AMB Vitamin B12 Injection Patient Supplied Today E53.8 - Deficiency of other specified B group vitamins Medications: New cyanocobalamin (vitamin B-12) 1,000 mcg IM ONCE 1 mL 0RF E53.8 - Deficiency of other specified B group vitamins Coding
== END 2024-10-07 16:07 | disposition home or self-care (01) ==
PROVIDERS: PCP Internal Medicine; Visit Provider Internal Medicine
DX: E53.8 Deficiency of other specified B group vitamins (principal)

== ENCOUNTER → 2024-10-07 15:56 | Outpatient (BNVA) | payer MEDICARE, MEDICAID, SELFPAY | PROVIDERS: PCP Internal Medicine; Visit Provider Internal Medicine | DX: E53.8 Deficiency of other specified B group vitamins (principal) | CPT/HCPCS: 96372; J3420 ==

== ENCOUNTER → 2024-10-11 07:54 | Outpatient (REF) | payer MEDICARE, MEDICAID, SELFPAY ==
--- NOTE | 2024-10-11 07:57 | CA_ITS ---
Transthoracic Echocardiogram Patient (Last, First, Middle): Ganesh Prado L Gender: Male Date of : 1955 Age: 69 Procedure Date: 10/11/2024 Procedure Type: Transthoracic Echocardiogram Location: OP Height: 167.64 cm Weight: 72.58 kg BSA: 1.82 m2 Heart Rate: bpm BP: 122 / 76 mmHg Plastics Fabricator: TO Referring MD: Gilbert Diaz MD Symptoms: I45.9 - Conduction disorder, unspecified Study Quality: Adequate w/ Contrast ECG Rhythm: Sinus Conclusions: - The left ventricular systolic function is normal. The calculated ejection fraction is 55% by biplane method. - No obvious valvular pathology seen on this study. Findings Procedure Information Contrast agent, definity, is being given per protocol without apparent complications. Left Ventricle Normal left ventricular cavity size. There is normal left ventricular wall thickness. The left ventricular systolic function is normal. The calculated ejection fraction is 55% by biplane method. There is no evidence of regional wall motion abnormalities. Diastolic function is normal for age. Right Ventricle Normal right ventricular cavity size and systolic function. Atria Both atria are normal in size. Aortic Valve There is a normal trileaflet aortic valve. There is no aortic valve stenosis. There is no aortic valve regurgitation. Mitral Valve The mitral valve appears normal. There is trace mitral valve regurgitation. There is no mitral valve stenosis. Pulmonic Valve There is trace pulmonic valve regurgitation. Tricuspid Valve There is trace tricuspid valve regurgitation. There is no evidence of pulmonary hypertension. Great Vessels The asc aorta is normal in size. Venous The inferior vena cava is normal in size and collapses greater than 50% with inspiration. Pericardium/Pleural There is no evidence of pericardial effusion. Prior Study Comparison No significant change compared to prior study dated: 01/24/2018. Recommendations, Care & Conclusions No obvious valvular pathology seen on this study. Measurements 2D Linear Measurements IVSd: 0.96 0.6-0.9/0.6-1.0 cm LVIDd: 4.38 3.9-5.3/4.2-5.9 cm LVIDd Index: 2.41 2.4-3.2/2.2-3.1 cm/m2 LVIDs: 3.03 2.0-3.6 cm LVPWd: 0.73 0.7-1.1 cm LA Diam: 3.10 2.7-3.8/3.0-4.0 cm LAIDs Index: 1.70 1.5-2.3 cm/m2 LV Mass: 146.13 67-162/88-224 g LV Mass Index: 80.29 43-95/49-115 g/m2 LVOT Diam: 2.20 3.0+(-)1.3 cm 2D Systolic Function EF 4C: 54.30 >55% EF 2C: 53.90 >55% EF BiP: 54.50 >55% Mitral Valve MV Pk E: 0.67 MV PK A: 0.41 MV Decel Time: 183.00 E/A: 1.60 E'Lateral: 9.57 E'Medial: 5.33 E/E' Med: 12.50 E/E' Lat: 7.00 PHT: 54.00 MVA PHT: 4.07 Decel [place]: 3.65 Aortic Valve AoV Pk Narendra: 1.25 AoV Mn Narendra: 0.85 AoV VTI: 0.27 AoV Pk Grad: 6.00 Aov Mn Grad: 3.00 HILARIA Cont.VTI: 2.76 LVOT LVOT Pk Narendra: 0.82 LVOT Mn Narendra: 0.54 LVOT VTI: 0.20 LVOT Pk Grad: 3.00 LVOT Mn Grad: 1.00 LVOT Diam: 2.20 LVOT Area: 3.80 Diastolic Function MV Pk E: 0.67 MV Pk A: 0.41 E/A: 1.60 E'Medial: 5.33 E/E' Med: 12.50 E' Laterial: 9.57 E/E' Lat: 7.00 Right Ventricle TAPSE (mm): 23.00 TVS' Narendra: 15.30 Tricuspid Valve TR Pk Narendra: 2.04 TR Pk Grad: 17.00 RA Press: 3.00 RVSP: 20.00 Great Vessels Aorta Sinus of Valsalva: 3.18 2.0-3.[address] [place]: 2.53 1.7-3.4 cm Ao Asc: 3.40 2.1-3.4 cm Updated in Other Vendor System with Status of Final Gilbert Diaz MD electronically signed on 10/12/2024 1:13:29 PM with status of Final
== END ==
LOC: HO.CARD 07:54
PROVIDERS: PCP Internal Medicine; Visit Provider Internal Medicine
DX: I45.9 Conduction disorder, unspecified (principal)
CPT/HCPCS: 93306; Q9957

== ENCOUNTER → 2024-10-11 07:57 | Outpatient (BNV) | payer MEDICARE, MEDICAID, SELFPAY | PROVIDERS: PCP Internal Medicine; Visit Provider Internal Medicine | DX: I44.30 Unspecified atrioventricular block (principal) | CPT/HCPCS: 93306 ==

== ENCOUNTER 2024-11-07 11:23 | Outpatient (AMB) | payer MEDICARE, MEDICAID, SELFPAY ==
--- NOTE | 2024-11-07 11:18 | AM.OFFVISNUR ---
Intake Visit Reasons: B12 Injection Allergies No Known Allergies Allergy (Verified 06/05/24 09:03) Office Meds cyanocobalamin (vitamin B-12) 1,000 mcg/mL injection solution Performing Provider: Shirlene Gonzales MD Performing Location[facility] Administered by: Diana Krishnan LPN on 11/07/24 11:18 Dose Route Admin Location Dispensed Lot Number Expiration Date [facility] Master [place] 1,000 mcg IM left deltoid 1 mL [id number] 06/29/25 40047-458-31 [facility] [place] Assessment & Plan Assessment & Plan Orders: Orders AMB Vitamin B12 Injection Patient Supplied Today E53.8 - Deficiency of other specified B group vitamins Medications: New cyanocobalamin (vitamin B-12) 1,000 mcg IM ONCE 1 mL 0RF E53.8 - Deficiency of other specified B group vitamins Coding
== END 2024-11-07 11:24 | disposition home or self-care (01) ==
LOC: HO.HMCH 11:23
PROVIDERS: PCP Internal Medicine; Visit Provider Internal Medicine
DX: E53.8 Deficiency of other specified B group vitamins (principal)

== ENCOUNTER → 2024-11-07 11:23 | Outpatient (BNVA) | payer MEDICARE, MEDICAID, SELFPAY | PROVIDERS: PCP Internal Medicine; Visit Provider Internal Medicine | DX: E53.8 Deficiency of other specified B group vitamins (principal) | CPT/HCPCS: 96372; J3420 ==

== ENCOUNTER 2024-12-06 09:38 | Outpatient (AMB) | payer MEDICARE, MEDICAID, SELFPAY ==
--- NOTE | 2024-12-06 09:47 | AM.OFFVISNUR ---
Intake Visit Reasons: B12 Shot Allergies No Known Allergies Allergy (Verified 06/05/24 09:03) Office Meds cyanocobalamin (vitamin B-12) 1,000 mcg/mL injection solution Performing Provider: Shirlene Gonzales MD [place] [facility] [place] [facility] Administered by: Diana Krishnan LPN on 12/06/24 09:47 Dose Route Admin Location Dispensed Lot Number Expiration Date [facility] Environmental Compliance Technician 1,000 mcg IM left deltoid 1 mL [id number] 06/29/26 11297-347-55 [employer] Assessment & Plan Assessment & Plan Orders: Orders AMB Vitamin B12 Injection Patient Supplied Today E53.8 - Deficiency of other specified B group vitamins Medications: New cyanocobalamin (vitamin B-12) 1,000 mcg IM ONCE 1 mL 0RF E53.8 - Deficiency of other specified B group vitamins Coding
== END 2024-12-06 09:46 | disposition home or self-care (01) ==
LOC: HO.HMCH 09:38
PROVIDERS: PCP Internal Medicine; Visit Provider Internal Medicine
DX: E53.8 Deficiency of other specified B group vitamins (principal)

== ENCOUNTER → 2024-12-06 09:38 | Outpatient (BNVA) | payer MEDICARE, MEDICAID, SELFPAY | PROVIDERS: PCP Internal Medicine; Visit Provider Internal Medicine | DX: E53.8 Deficiency of other specified B group vitamins (principal) | CPT/HCPCS: 96372; J3420 ==

== ENCOUNTER 2025-01-09 10:02 | Outpatient (AMB) | payer MEDICARE, MEDICAID, SELFPAY ==
--- NOTE | 2025-01-09 10:10 | AM.OFFVISNUR ---
Intake Visit Reasons: b12 Allergies No Known Allergies Allergy (Verified 06/05/24 09:03) Office Meds cyanocobalamin (vitamin B-12) 1,000 mcg/mL injection solution Performing Provider: Shirlene Gonzales MD [facility]forming [facility] [place] [facility] Administered by: Diana Krishnan LPN on 01/09/25 10:10 Dose Route Admin Location Dispensed Lot Number Expiration Date [facility] Ingot Buggy Operator 1,000 mcg IM left deltoid 1 mL [id number] 06/29/26 93044-646-92 [employer] Assessment & Plan Assessment & Plan Orders: Orders AMB Vitamin B12 Injection Patient Supplied Today E53.8 - Deficiency of other specified B group vitamins Medications: New cyanocobalamin (vitamin B-12) 1,000 mcg IM ONCE 1 mL 0RF E53.8 - Deficiency of other specified B group vitamins Coding
== END 2025-01-09 10:12 | disposition home or self-care (01) ==
LOC: HO.HMCH 10:03
PROVIDERS: PCP Internal Medicine; Visit Provider Internal Medicine
DX: E53.8 Deficiency of other specified B group vitamins (principal)

== ENCOUNTER → 2025-01-09 10:02 | Outpatient (BNVA) | payer MEDICARE, MEDICAID, SELFPAY | PROVIDERS: PCP Internal Medicine; Visit Provider Internal Medicine | DX: E53.8 Deficiency of other specified B group vitamins (principal) | CPT/HCPCS: 96372; J3420 ==

== ENCOUNTER 2025-02-06 08:46 | Outpatient (AMB) | payer MEDICARE, MEDICAID, SELFPAY ==
--- NOTE | 2025-02-06 08:57 | AM.OFFVISNUR ---
Intake Visit Reasons: Injection Allergies No Known Allergies Allergy (Verified 06/05/24 09:03) Office Meds cyanocobalamin (vitamin B-12) 1,000 mcg/mL injection solution Performing Provider: Shirlene Gonzales MD [place] [facility] [place] [facility] Administered by: Diana Krishnan LPN on 02/06/25 08:57 Dose Route Admin Location Dispensed Lot Number Expiration Date [facility] Transportation Engineer 1,000 mcg IM left deltoid 1 mL [id number] 06/29/26 12809-209-02 [employer] Total Dispensed Waste 1 mL 0 % Assessment & Plan Assessment & Plan Orders: Orders AMB Vitamin B12 Injection Patient Supplied Today E53.8 - Deficiency of other specified B group vitamins Coding
--- OUTSIDE RECORDS SUMMARY | 2025-02-06 09:01 | XMS_ITS | Patient Health Record ---
Author Organization [facility] Address [address] [place] [address] Care Team Providers Care Research Physician Name Role Phone Shirlene Bauer Primary Care Provider Unavailab Ji Murray Unavailable [phone] Reason For Referral No Information Medications Medication SIG (Take, Route, Frequency, Duration) Notes Start Date End Date Status tylenol - as directed Oral as needed Active Advil 200 MG 1 capsule with food or milk as needed Orally as directed prn Active Mens 50+ Multi Vitamin/Min - 1 gummy Orally once a day Ac tive MiraLax (colon prep) 8.3 ounce ((238) grams mixed with Gatorade or Crystal Light orally begin at 5:00 p.m. the day before the procedure for 1 day 07/10/2018 Active Dulcolax (colon prep) 5 MG take at 3:00 p.m and 7:00p.m. Orally two tablets twice a day for one day for 1 day 07/10/2018 Active Immunizations Vaccine Route Administration Date Status Comme nts Influenza Unknown 04/30/2018 Administered Social History Tobacco Use: Social History Observation Description Date Details (start date - stop date) Never Smoker NA - NA Tobacco Use/Smoking Question Answer Notes Patient is a nonsmoker Alcohol Screen Question Answer Notes Did you have a drink containing alcohol in the p ast year? No Points 0 Interpretation Negative Section Notes: Quit alcohol consumption January 31, 2018 --previously drank heavy. Nonsmoker Problems Problem Type SNOMED Code ICD Code Onset Dates Problem Status W/U Status Risk Notes Problem 628799525 Encounter for screening for malignant neoplasm of colon (Z12.11) Active confirmed Problem 703573425 History of adenomatous polyp of colon (Z86.010) Active confirmed Problem 450208502668371 Preprocedural examination (Z01.818) Active confirmed Problem 783652953 Fatty liver (K76.0) Active confirmed Problem 181440233 NSAID long-term use (Z79.1) Active confirmed Plan Of Treatment Pending Test Test Name Order Date GI BIOPSY 09/05/2018 Future Test Test Name Order Date COLONOSCOPY 07/10/2018 Insurance Providers Payer Name Payer Address Payer Phone Subscriber Number Group Number Insured Name Patient Relationship to Insured Coverage Start Date Coverage End Date MEDICARE OF [place] [address] [place] [id number] [phone] [id number] MARK GONCALVES Self - patient is the insured [facility]ICAID [facility] [address] [place] [phone] [id number] MARK GONCALVES Self - patient is the insured Medical (General) History Medical History History ICD Code Alcohol and Fatty liver--U/S and MRI in 2018 consistent with fatty liver and no evidence of any suspicious lesions--there was no splenomegaly or ascites--- he had a normal liver profile in early 2017 Asthma Congenital absence of right kidney Colonoscopy in 05/2012--1 small tubular adenoma removed--Dr. Huff Denies [place],DM,CVA,renal disease Surgical History Surgery Date(Month/Year) Abscess back of neck 1999
== END 2025-02-06 08:58 | disposition home or self-care (01) ==
LOC: HO.HMCH 08:47
PROVIDERS: PCP Internal Medicine; Visit Provider Internal Medicine
DX: E53.8 Deficiency of other specified B group vitamins (principal)

== ENCOUNTER → 2025-02-06 08:46 | Outpatient (BNVA) | payer MEDICARE, MEDICAID, SELFPAY | PROVIDERS: PCP Internal Medicine; Visit Provider Internal Medicine | DX: E53.8 Deficiency of other specified B group vitamins (principal) | CPT/HCPCS: 96372; J3420 ==

== ENCOUNTER 2025-02-19 08:46 | Outpatient (AMB) | payer MEDICARE, MEDICAID, SELFPAY ==
--- NOTE | 2025-02-19 08:55 | A.OFFVIS_ITS ---
Intake Vital Signs 02/19/25 08:57 Height 5 ft 6 in Weight 165 lb BMI 26.6 BP 130/72 Blood Pressure Location Lt brachial Position Sitting Intake Visit Reasons: AWV Intake Note: Patient here for an annual wellness visit Pearl Restorer Required: No Accompanied by: Spouse Allergies No Known Allergies Allergy (Verified 02/19/25 09:15) Medication List - Last Reconciled 02/19/25 by Shirlene Gonzales MD acetaminophen (Tylenol Extra Strength) 500 mg PO Q6H PRN albuterol sulfate 2.5 mg (3 mL) inhalation QID PRN 30 days cholecalciferol (vitamin D3) 50 mcg PO DAILY 90 days cyanocobalamin (vitamin B-12) 1,000 mcg IM Q4W 4 weeks folic acid 1 mg PO DAILY 90 days lidocaine 5% 1 patch topical DAILY PRN miscellaneous medical supply 1 ea miscellaneous DAILY naproxen (EC-Naprosyn) 375 mg PO BID PRN nebulizers (AeroEclipse II Nebulizer) As directed syringe with needle (Memvuer Slip Syringe-Needle) As directed trazodone 100 mg PO BEDTIME PRN 90 days Ventolin HFA 90 mcg/actuation (albuterol sulfate) 1 inh inhalation QID PRN 30 days NS HPI HPI Comments History of Present Illness Details The patient is a 69-year-old male presenting for a Medicare Annual Wellness Exam. He has a history of hypertension, which is currently well-controlled as per the recent cardiology evaluation, including a normal echocardiogram. The patient underwent a colonoscopy in 2019, during which a polyp was removed, and a follow- up was recommended in five years. The patient reports a history of Vitamin B12 deficiency, for which he receives monthly injections, although he has recently run out of his supply. He also takes several medications including Tylenol, a bronchodilator, folic acid, lidocaine patches, naproxen, and trazodone for sleep. He has a significant family history of hypertension in his mother and alcoholism in his father. The patient is a former smoker and has undergone an abdominal aortic aneurysm screening, which was negative. - Vaccinations: Up to date with pneumoni a and tetanus vaccines - Colonoscopy: Last performed in 2018, f ollow-up recommended in five years - Abdominal aortic aneurysm screening: N egative result in 2022 [facility] Medical History Insomnia Physical exam History of alcoholism Asthma Surgical History History of removal of cyst Family History Father Alcoholism Substance use disorder Mother Hypertension Maternal Uncle Stroke Diabetes Hypertension Sister No problems noted. 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 Cognitive needs: No Hearing needs: No Vision needs: No Questionnaire Medicare Wellness Checkup What [age]?: [age] What gender do you identify with?: male During the past 4 weeks, how much have you been bothered by emotional problems such as feeling anxious, depressed, irritable, sad or downhearted, and blue?: moderately During the past 4 weeks, has your physical & emotional health limited your social activities with family, friends, neighbors, or groups?: not at all During the past 4 weeks, how much bodily pain have you generally had?: mild pain During the past 4 weeks, was someone available to help you if you needed & wanted help?: no, not at all During the past 4 weeks, what was the hardest physical activity you could do for at least 2 minutes?: light Can you get to places out of walking distance without help? (For eg., can you travel alone on buses, taxis or drive your car?): Yes Can you go shopping for groceries or clothes without someone's help?: Yes Can you prepare your own meals?: Yes Can you do your housework without help?: Yes Because of any health problems, do you need the help of another person with your personal care needs such as eating, bathing, dressing or getting around the house?: No Can you handle your own money without help?: Yes During the past 4 weeks, how would you rate your health in general?: fair During the past 4 weeks how have things been going for you?: very well; could hardly better Are you having difficulties driving your car?: no Do you always fasten your seat belt when you are in a car?: yes, usually During past 4 weeks, have you been bothered by the following: never: Falling or dizzy when standing up, Sexual problems?, Trouble eating well?, Teeth or denture problems?, Problems using the telephone? and Tiredness or fatigue? Have you fallen 2 or more times in the past year?: No Are you afraid of falling?: No Are you a smoker?: no During the past 4 weeks, how many drinks of wine, beer, or other alcoholic beverages did you have?: no alcohol at all Do you exercise for about 20 minutes 3 or more times a week?: yes, most of the time Have you been given information to help with the following?: yes: Keeping track of your medications? and no: Hazards in your house that might hurt you? How often do you have trouble taking medicines the way you have been told to lonnie e them?: I always take medicine as prescribed How confident are you that you can control & manage most of your health problems?: very confident What is your race?: or origin or descent Mini Mental State Exam (MMSE) Orientation What is the (year) (season) (date) (day) (month)?: year, season, date, day and month Where are we (state) (county) (town or city) (hospital) (floor)?: state, county, town or city, hospital/clinic and floor Registration Name of 3 unrelated objects clearly and slowly, then ask patient to repeat all 3 of them. (1st repeat determines score. Make sure they can repeat all three): object 1, object 2 and object 3 Attention & Calculation (CHOOSE ONE) Spell WORLD backwards (DLROW): 4 letters Recall Ask patient to repeat the 3 items from question #3.: object 1, object 2 and object 3 Language Show patient a wristwatch & ask what it is. Repeat for pencil.: watch and pencil Ask the patient to repeat the phrase 'No ifs, ands, or buts' after you.: correct Ask the patient to 'take a piece of paper with their right hand' 'fold paper in half' 'place paper on floor': take paper in right hand, fold paper in half and place paper on floor Print the sentence 'CLOSE YOUR EYES' on a piece. If patient actually closes eyes then score.: followed written direction Give patient a blank piece of paper & ask to write a sentence. Score if it contains a noun & verb.: sentence contains subject and verb Ask patient to copy figure of intersecting pentagons exactly. Score if all 10 angles & 2 intersects are included.: all 10 angles present & 2 are intersected Score Score: 29 Activity of Daily Living Bathing - sponge bath, tub bath or shower: receives no assistance (gets in/out by self, if usual bathing means Dressing - getting clothes from closets & drawers, including inner/outer ga rments & fasteners.: gets clothes & gets completely dressed without help Transfer: moves in & out of bed and chair without help (may use support object) Continence: controls urination/bowel movements completely by self Feeding: feeds self without help Total Score: 0 Information obtained from: patient Using telephone: independent Traveling: independent Shopping: independent Preparing meals: independent Housework: independent Taking medicine: independent Managing money: independent PHQ-9 Over the last 2 weeks, how often have you been bothered by any of the following problems? 1. Little interest or pleasure in doing things: not at all 2. Feeling down, depressed, or hopeless: not at all 3. Trouble falling or staying asleep, or sleeping too much: several days 4. Feeling tired or having little energy: not at all 5. Poor appetite or overeating: not at all 6. Feeling bad about yourself - or that you are a failure or have let yourself or your family down: not at all 7. Trouble concentrating on things, such as reading the newspaper or watching television: not at all 8. Moving or speaking so slowly that other people could have noticed. Or the opposite - being so fidgety or restless that you have been moving around a lot more than usual: not at all 9. Thoughts that you would be better off or of hurting yourself in some way: not at all Total score: 1 Depression Screening Interpretation: Negative Depression Screening Done: Yes 13453 - PHQ-9 Billing: Yes Source: Developed by Drs. Ji Estrella, Anca Solorzano, Jake Sanabria and colleagues, with an educational yenny from [employer]. Fall Risk Assessment Fall Risk Assessment Fall risk assessment: No Falls in past year AUDIT C Alcohol Use Questionnaire (AUDIT-C) 1. How often do you have a drink containing alcohol?: Never Total Score: 0 Score Reviewed/Action Taken: No AMRIT-7 AMB Questionnaire AMRIT-7 Date AMRIT - 7 assessed: 02/19/25 Feeling nervous, anxious, or on edge: 0 = Not at all Not being able to stop or control worryin = Not at all Worrying too much about different things: 0 = Not at all Trouble relaxin = Not at all Being so restless that it is hard to sit still: 0 = Not at all Becoming easily annoyed or irritable: 0 = Not at all Feeling afraid as if something awful might happen: 0 = Not at all Total AMRIT-7 score (0-4 normal; 5-9 mild; 10-14 moderate; 15-21 severe): 0 Source: Developed by Drs. Ji Estrella, Anca Solorzano, Jake Sanabria and colleagues, with an educational yenny from [employer]. AMRIT-7 Assessment Billing AMRIT-7 Assessment Tool: AMRIT-7 Assessment 37727 Thrive Questionnaire Date Thrive assessed: 10/10/23 Review of Systems Const All systems reviewed & are unremarkable except as noted in HPI and below Card Denies chest pain at rest, Denies chest pain with activity, Denies edema, Denies irregular heart rhythm, Denies claudication, Denies dyspnea, Denies dyspnea on exertion, Denies orthopnea, Denies paroxysmal nocturnal dyspnea and Denies slow heart rate Resp Denies cough, Denies dyspnea and Denies dyspnea on exertion GI Denies abdominal pain, Denies change in bowel habits, Denies excessive flatus, Denies nausea and Denies vomiting Denies urinary hesitancy, Denies urinary incontinence and Denies urinary urgency Skin/Breast Reports lesions Neuro Denies behavioral changes, Denies confusion and Denies lack of coordination Psych Denies behavioral changes and Denies confusion Physical Exam Vital Signs: Last Vital Signs BP 130/72 02/19/25 08:57 BMI result Body Mass Index 26.6 Const General: No confusion Orientation/consciousness: patient oriented x3 and No confusion Resp Effort & Inspection: normal respiratory effort Auscultation: clear to auscultation bilaterally Cardio Jugular venous distension: no JVD Rate: regular rate Rhythm: regular rhythm Heart sounds: S1 normal heart sound present and S2 normal heart sound present Skin Lesions: lesion noted (Maculopapular lesion in feet) Neuro General: patient oriented x3, no focal motor deficits and No confusion Cognition (Neuro): normal cognition Gait exam (Neuro): Normal gait present Romberg Test: Negative Extrem General: Yes full ROM Psych Appearance: grossly normal Assessment & Plan Assessment & Plan (1) Encounter for Medicare annual wellness exam: Code(s): Z00.00 - Encounter for general adult medical examination without abnormal findings (2) Skin lesion: Code(s): L98.9 - Disorder of the skin and subcutaneous tissue, unspecified Plan The plan includes continuing current management for hypertension, as recent evaluations indicate good control. A referral for a follow-up colonoscopy will be sent due to the previous removal of a polyp. The patient will have laboratory tests to assess Vitamin levels and determine the need for further supplementation. Prescriptions for Vitamin D and other medications will be renewed as needed. Preventative measures include maintaining up-to-date vaccinations and regular screenings, such as the abdominal aortic aneurysm screening, which was negative. Patient was informed and verbally consented to the use of an ambient scribe for clinic note documentation during this visit. Orders: Orders Lipid Panel Today E78.5 - Hyperlipidemia, unspecified T Spot TB Today Z11.1 - Encounter for screening for respiratory tuberculosis Vitamin D 25-OH Total Today E55.9 - Vitamin D deficiency, unspecified Vitamin B12 and Folate Today E53.8 - Deficiency of other specified B group vitamins Comprehensive [place]. Panel Fast Today M17.11 - Unilateral primary osteoarthritis, right knee Referrals Gastroenterology Referral Z12.11 - Encounter for screening for malignant neoplasm of colon Medications: New hydrocortisone 1% (Anti-Itch (hydrocortisone)) 1 appl topical BID PRN 28.4 grams 1RF skin irritation 14 days L98.9 - Disorder of the skin and subcutaneous tissue, unspecified Refilled cholecalciferol (vitamin D3) 50 mcg PO DAILY 90 caps 2RF 90 days E55.9 - Vitamin D deficiency, unspecified cyanocobalamin (vitamin B-12) 1,000 mcg IM Q4W 1 mL 2RF 4 weeks E53.8 - Deficiency of other specified B group vitamins syringe with needle (Memvuer Slip Syringe-Needle) As directed 1 ea 6RF for b12 placement E53.8 - Deficiency of other specified B group vitamins trazodone 100 mg PO BEDTIME PRN 90 tabs 0RF sleep 90 days folic acid 1 mg PO DAILY 90 tabs 1RF 90 days Quality Reporting (2019) Fall Risk Screening ([facility] 139) Fall risk assessment: No Falls in past year Depression/Bipolar (159/160/161/177) PHQ-9: Total score: 1 Coding Level of Care Code Medicare First (G0438) Est Pt Level 3 (56048) Diagnoses Encounter for Medicare annual wellness exam Z00.00 Skin lesion L98.9 CPT Codes Advance Care Planning - Time spent: 1-15 minutes, on File ([id number]) Additional Codes PHQ-9 - 62596 - PHQ-9 Billing: Yes ([id number]) AMRIT-7 Assessment Billing - AMRIT-7 Assessment Tool: AMRIT-7 Assessment 19607 ([id number]) Time Spent (min) 35 Advance Care Planning Advance Care Planning discussion: Exists, not on file Date of discussion: 02/19/25 Who was present: patient, and me Forms completed: Health Care Proxy and None Time spent: 1-15 minutes, on File Actual minutes spent: 1
[2025-02-19 08:57] VITALS: BP 130/72; BMI 26.6
--- OUTSIDE RECORDS SUMMARY | 2025-02-19 09:08 | XMS_ITS | Patient Health Record ---
Author Organization [facility] Address [address] [place] [address] Care Team Providers Care Supervising Floorperson Name Role Phone Shirlene Bauer Primary Care Provider Unavailab Ji Murray Unavailable [phone] Reason For Referral No Information Medications Medication [...] Problem Status W/U Status Risk Notes Problem 482544955 Encounter for screening for malignant neoplasm of colon (Z12.11) Active confirmed Problem 665429468 History of adenomatous polyp of colon (Z86.010) Active confirmed Problem 590591669188755 Preprocedural examination (Z01.818) Active confirmed Problem 429991084 Fatty liver (K76.0) Active confirmed Problem 650505344 NSAID long-term use (Z79.1) Active confirmed Plan Of Treatment Pending Test Test Name Order Date GI BIOPSY 09/05/2018 Future Test Test Name Order Date COLONOSCOPY 07/10/2018 Insurance Providers Payer Name Payer Address Payer Phone Subscriber Number Group Number Insured Name Patient Relationship to Insured Coverage Start Date Coverage End Date MEDICARE OF [place] [address] [place] [id number] MARK GONCALVES Self - patient is the insured [facility]ICAID OF [facility] [address] [place] [phone] [id number] MARK GONCALVES Self - patient is the [...] 05/2012--1 small tubular adenoma removed--Dr. Huff Denies [place],DM,CVA,renal disease Surgical History Surgery Date(Month/Year) Abscess back of neck 1999
== END 2025-02-19 09:32 | disposition home or self-care (01) ==
LOC: HO.HMCH 08:47
PROVIDERS: PCP Internal Medicine; Visit Provider Internal Medicine
DX: Z00.00 Encounter for general adult medical examination without abnormal findings (principal); L98.9 Disorder of the skin and subcutaneous tissue, unspecified

== ENCOUNTER → 2025-02-19 08:46 | Outpatient (BNVA) | payer MEDICARE, MEDICAID, SELFPAY | PROVIDERS: PCP Internal Medicine; Visit Provider Internal Medicine | DX: Z00.00 Encounter for general adult medical examination without abnormal findings (principal); L98.9 Disorder of the skin and subcutaneous tissue, unspecified | CPT/HCPCS: 96127; 99212 ==

== ENCOUNTER 2025-02-20 07:16 | Outpatient (REF) | payer MEDICARE, MEDICAID, SELFPAY ==
--- OUTSIDE RECORDS SUMMARY | 2025-02-20 07:18 | XMS_ITS | Patient Health Record ---
Author Organization [facility] Address [address] [place] [address] Care Team Providers Care Automobile Mechanic Radiator Name Role Phone Shirlene Bauer Primary Care Provider Unavailab Ji Murray Unavailable [phone] Reason For Referral No Information Medications Medication [...] Problem Status W/U Status Risk Notes Problem 185966585 Encounter for screening for malignant neoplasm of colon (Z12.11) Active confirmed Problem 934129431 History of adenomatous polyp of colon (Z86.010) Active confirmed Problem 417559163967398 Preprocedural examination (Z01.818) Active confirmed Problem 910489929 Fatty liver (K76.0) Active confirmed Problem 029162827 NSAID long-term use (Z79.1) Active confirmed Plan Of Treatment Pending Test Test Name Order Date GI BIOPSY 09/05/2018 Future Test Test Name Order Date COLONOSCOPY 07/10/2018 Insurance Providers Payer Name Payer Address Payer Phone Subscriber Number Group Number Insured Name Patient Relationship to Insured Coverage Start Date Coverage End Date [place]ARE OF [place] [address] [place] [id number] MARK GONCALVES Self - patient is the insured MEDICAID OF [employer] [address] [place] [place] [phone] [id number] MARK GONCALVES Self - patient is the [...] 05/2012--1 small tubular adenoma removed--Dr. Huff Denies [place],DM,CVA,renal disease Surgical History Surgery Date(Month/Year) Abscess back of neck 1999
[2025-02-20 08:11] LABS: Alanine Aminotransferase 38 U/L (0-40); Albumin Level 4.3 g/dL (3.5-5.0); Alkaline Phosphatase 130 U/L (39-117); Anion Gap 9 (12-20); Aspartate Amino Transferase 36 U/L (5-37); Blood Urea Nitrogen 16 mg/dL (9-16); Calcium 8.9 mg/dL (8.4-10.2); Carbon Dioxide 28 mmol/L (22-29); Chloride 106 mmol/L (96-108); Cholesterol 144 mg/dL (<200); Estimated Glomerular Filt Rate > 60; HDL Cholesterol 37 mg/dL (>40); Potassium 4.1 mmol/L (3.3-5.1); Sodium 139 mmol/L (135-145); Total Protein 7.0 g/dL (6.5-8.0); Triglycerides 53 mg/dL (<150)
[2025-02-20 08:32] LABS: Folate 9.8 ng/mL (> or = 4.0); Vitamin B12 296 pg/mL (200-900)
[2025-02-22 20:18] LABS: TS Negative Control Passed; TS Panel A 0; TS Panel B 0; TS Positive Control Passed; TSpotTB Negative (Negative)
== END 2025-02-20 07:17 | disposition home or self-care (01) ==
LOC: HO.LAB 07:16
PROVIDERS: PCP Internal Medicine; Visit Provider Internal Medicine
DX: Z11.1 Encounter for screening for respiratory tuberculosis (principal); M17.11 Unilateral primary osteoarthritis, right knee; E53.8 Deficiency of other specified B group vitamins; E78.5 Hyperlipidemia, unspecified; E55.9 Vitamin D deficiency, unspecified
CPT/HCPCS: 36415; 80053; 80061; 82306; 82607; 82746; 86481

== ENCOUNTER 2025-03-14 15:10 | Outpatient (AMB) | payer MEDICARE, MEDICAID, SELFPAY ==
--- OUTSIDE RECORDS SUMMARY | 2025-03-14 15:12 | XMS_ITS | Patient Health Record ---
Author Organization [facility] Address [address] [place] [address] Care Team Providers Care Chief Engineer Production Name Role Phone Shirlene Bauer Primary Care Provider Unavailab Ji Murray Unavailable [phone] Reason For Referral No Information Medications Medication [...] Problem Status W/U Status Risk Notes Problem 534083882 Encounter for screening for malignant neoplasm of colon (Z12.11) Active confirmed Problem 317705691 History of adenomatous polyp of colon (Z86.010) Active confirmed Problem 292303866580875 Preprocedural examination (Z01.818) Active confirmed Problem 149854148 Fatty liver (K76.0) Active confirmed Problem 680050887 NSAID long-term use (Z79.1) Active confirmed Plan Of Treatment Pending Test Test Name Order Date GI BIOPSY 09/05/2018 Future Test Test Name Order Date COLONOSCOPY 07/10/2018 Next Appt Details Provider Name:Ji Glynn , 04/01/2025 01:20:00 PM, [address], [address], [place], [address], Insurance Providers Payer Name Payer Address Payer Phone Subscriber Number Group Number Insured Name Patient Relationship to Insured Coverage Start Date Coverage End Date MEDICARE OF [place] [address] [place] [address] [id number] MARK GONCALVES Self - patient is the insured [facility] [address] [place] [phone] [id number] MARK GONCALVES Self - patient is the [...] 05/2012--1 small tubular adenoma removed--Dr. Huff Denies [place],DM,CVA,renal disease Surgical History Surgery Date(Month/Year) Abscess back of neck 1999
--- NOTE | 2025-03-14 15:18 | AM.OFFVISNUR ---
Intake Visit Reasons: injection Allergies No Known Allergies Allergy (Verified 02/19/25 09:15) Office Meds cyanocobalamin (vitamin B-12) 1,000 mcg/mL injection solution Performing Provider: Shirlene Gonzales MD [facility] [place] [facility] Administered by: Diana Krishnan LPN on 03/14/25 15:18 Dose Route Admin Location Dispensed Lot Number Expiration Date [facility] [employer] Installer 1,000 mcg IM left deltoid 1 mL [id number] 06/29/26 59514-991-79 [employer] Total Dispensed Waste 1 mL 0 % Assessment & Plan Assessment & Plan Orders: Orders AMB Vitamin B12 Injection Patient Supplied Today E53.8 - Deficiency of other specified B group vitamins Coding
== END 2025-03-14 15:20 | disposition home or self-care (01) ==
LOC: HO.HMCH 15:10
PROVIDERS: PCP Internal Medicine; Visit Provider Internal Medicine
DX: E53.8 Deficiency of other specified B group vitamins (principal)

== ENCOUNTER → 2025-03-14 15:10 | Outpatient (BNVA) | payer MEDICARE, MEDICAID, SELFPAY | PROVIDERS: PCP Internal Medicine; Visit Provider Internal Medicine | DX: E53.8 Deficiency of other specified B group vitamins (principal) | CPT/HCPCS: 96372; J3420 ==

== ENCOUNTER 2025-04-18 09:36 | Outpatient (AMB) | payer MEDICARE, MEDICAID, SELFPAY ==
--- NOTE | 2025-04-18 09:55 | AM.OFFVISNUR ---
Intake Visit Reasons: B12 Shot Allergies No Known Allergies Allergy (Verified 02/19/25 09:15) Office Meds cyanocobalamin (vitamin B-12) 1,000 mcg/mL injection solution Performing Provider: Shirlene Gonzales MD [facility] Administered by: Diana Krishnan LPN on 04/18/25 09:55 Dose Route Admin Location Dispensed Lot Number Expiration Date [facility] Balance Bridge Assembler 1,000 mcg IM left deltoid 1 mL [id number] 06/29/26 75665-106-85 [employer] Total Dispensed Waste 1 mL 0 % Assessment & Plan Assessment & Plan Orders: Orders AMB Vitamin B12 Injection Patient Supplied Today E53.8 - Deficiency of other specified B group vitamins Coding
== END 2025-04-18 09:57 | disposition home or self-care (01) ==
LOC: HO.HMCH 09:37
PROVIDERS: PCP Internal Medicine; Visit Provider Internal Medicine
DX: E53.8 Deficiency of other specified B group vitamins (principal)

== ENCOUNTER → 2025-04-18 09:36 | Outpatient (BNVA) | payer MEDICARE, SELFPAY | PROVIDERS: PCP Internal Medicine; Visit Provider Internal Medicine | DX: E53.8 Deficiency of other specified B group vitamins (principal) | CPT/HCPCS: 96372; J3420 ==

== ENCOUNTER 2025-05-23 08:44 | Outpatient (AMB) | payer MEDICARE, SELFPAY ==
--- NOTE | 2025-05-23 08:52 | AM.OFFVISNUR ---
Intake Visit Reasons: B12 Shot Allergies No Known Allergies Allergy (Verified 02/19/25 09:15) Office Meds cyanocobalamin (vitamin B-12) 1,000 mcg/mL injection solution Performing Provider: Shirlene Gonzales MD [place] [facility] [facility] [place] [facility] Administered by: Diana Krishnan LPN on 05/23/25 08:52 Dose Route Admin Location Dispensed Lot Number Expiration Date FORMERLY NAMED [facility] [employer] 1,000 mcg IM left deltoid 1 mL [id number] 06/29/26 56119-443-27 ARI Total Dispensed Waste 1 mL 0 % Assessment & Plan Assessment & Plan Orders: Orders AMB Vitamin B12 Injection Patient Supplied Today E53.8 - Deficiency of other specified B group vitamins Medications: Refilled cyanocobalamin (vitamin B-12) 1,000 mcg IM Q4W 1 mL 2RF 4 weeks E53.8 - Deficiency of other specified B group vitamins Coding
== END 2025-05-23 08:53 | disposition home or self-care (01) ==
LOC: HO.HMCH 08:45
PROVIDERS: PCP Internal Medicine; Visit Provider Internal Medicine
DX: E53.8 Deficiency of other specified B group vitamins (principal)

== ENCOUNTER → 2025-05-23 08:44 | Outpatient (BNVA) | payer MEDICARE, SELFPAY | PROVIDERS: PCP Internal Medicine; Visit Provider Internal Medicine | DX: E53.8 Deficiency of other specified B group vitamins (principal) | CPT/HCPCS: 96372; J3420 ==